=== PATIENT | female | born 1940 | race Caucasian/White ===

== ENCOUNTER 2020-09-18 09:52 | Emergency (ER) | payer MEDICARE, SELFPAY ==
--- NOTE | ~2020-09-18 | US_ITS ---
EXAMINATION: US VENOUS ULTRASOUND WITH DOPPLER LOWER EXTREMITY, BILATERAL CLINICAL INFORMATION: Bilateral leg swelling. Assess for DVT. COMPARISON: None TECHNIQUE: Ultrasound of the deep veins is performed from the hip to the calf with compression sonography and color and pulse Doppler assessment. Spectral analysis with color-flow imaging is performed. Examination on the right is completed. Patient declined completion of the exam on the left. Only part of the left leg is evaluated. FINDINGS: RIGHT: There is normal venous compression and respiratory variation and augmented flow. The visualized common femoral vein, superficial femoral vein, profunda femoral vein, popliteal vein, and the trifurcation region shows no evidence of deep venous thrombosis. No popliteal fossa cyst. LEFT: There is patency and normal Doppler in the facet regions of the left lower extremity including the common femoral vein, greater saphenous vein, and femoral vein proximally mid thigh. More distally, the femoral vein and popliteal vein are not evaluated as patient declined further ultrasound evaluation. US/US venous duplex LE IMPRESSION: 1. LEFT: Incomplete. No DVT from hip to mid thigh. More distally patient declined ultrasound evaluation. 2. RIGHT: No DVT demonstrated in the right lower extremity.
--- NOTE | ~2020-09-18 | XR_ITS ---
EXAMINATION: XR CHEST CLINICAL INFORMATION: Chest pain COMPARISON: Chest radiographs 03/24/2020, 07/31/2016 TECHNIQUE: 2 views of the chest were obtained. 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 There is no pneumothorax or pneumomediastinum. No airspace consolidation or groundglass opacity. There is tapering at the cardiac apex similar to prior study consistent with areolar tissue. The heart is normal in size. The vascularity is normal. No acute bony abnormality. XR/XR chest 2V IMPRESSION: Unremarkable examination.
[2020-09-18 10:10] VITALS: BP 136/43; PULSE 62; RESP 16; TEMP 36.7; O2SAT 98; BMI 42.5
--- NOTE | 2020-09-18 10:21 | ECG_ITS ---
Test Reason : CHEST PAIN Blood Pressure : / mmHG Vent. Rate : 062 BPM Atrial Rate : 062 BPM P-R Int : 194 ms QRS Dur : 096 ms QT Int : 408 ms P-R-T Axes : 088 -42 056 degrees QTc Int : 414 ms Normal sinus rhythm Left axis deviation Abnormal ECG When compared with ECG of 24-MAR-2020 09:22, Vent. rate has decreased BY 30 BPM Referred By: Ely Landa Electronically Signed By:SAMAN SWEENEY MD
[2020-09-18 11:03] LABS: MANUAL DIFF FLAG NO
[2020-09-18 11:06] LABS: Basophils Absolute Auto 0.1 X10*3/uL (0.0-0.2); Basophils Percent Auto 0.6 % (0-2); Eosinophils Absolute Auto 0.3 X10*3/uL (0.0-0.4); Eosinophils Percent Auto 2.4 % (0-4); Hematocrit 37.7 % (37-47); Hemoglobin 12.1 g/dl (12.0-16.0); Imm Gran Abs Auto 0.04 X10*3/uL (0.00-0.03); Imm Gran Pct Auto 0.4 % (0.0-0.4); Lymphocytes Absolute Auto 2.2 X10*3/uL (1.2-4.9); Lymphocytes Percent Auto 21.6 % (20-40); Mean Corpuscular HGB Conc 32.1 g/dl (31.0-35.0); Mean Corpuscular Hemoglobin 27.2 pg (27.0-33.0); Mean Corpuscular Volume 84.7 fL (80-98); Monocytes Absolute Auto 0.7 X10*3/uL (0.1-1.2); Monocytes Percent Auto 6.4 % (2-11); Neutrophils Percent Auto 68.6 % (45-73); Platelet Count 291 X10*3/uL (160-400); Red Blood Count 4.45 X10*6/uL (4.20-5.50); Red Cell Distribution Width 13.9 % (11.0-16.0); White Blood Count 10.3 X10*3/uL (4.8-10.8)
[2020-09-18 11:14] LABS: INTERNATIONAL NORM RATIO 1.1 (0.9-1.1); Prothrombin Time 12.8 SEC (10.8-13.0)
[2020-09-18 11:16] LABS: Partial Thromboplastin Time 33.3 SEC (24.1-38.0)
[2020-09-18 11:29] VITALS: BP 185/62; PULSE 64; RESP 16; O2SAT 99
[2020-09-18] MEDS: Aspirin 81 MG TAB.CHEW 162 MG PO (11:36)
[2020-09-18 11:40] LABS: Alanine Aminotransferase 16 U/L (0-31); Albumin Level 3.9 g/dL (3.5-5.0); Alkaline Phosphatase 71 U/L (39-117); Anion Gap 11 (12-20); Aspartate Amino Transferase 17 U/L (5-31); Bilirubin Direct 0.2 mg/dL (0.0-0.5); Bilirubin Total 0.5 mg/dL (0.0-1.0); Blood Urea Nitrogen 18 mg/dL (9-16); Calcium 9.3 mg/dL (8.4-10.2); Carbon Dioxide 29 mmol/L (22-29); Chloride 104 mmol/L (96-108); Creatinine Clr Calc Pharmacy 66.9; Estimated Glomerular Filt Rate > 60; Glucose Random 74 mg/dL (60-115); Potassium 3.9 mmol/L (3.3-5.1); Sodium 140 mmol/L (135-145); Total Protein 7.3 g/dL (6.5-8.0)
--- NOTE | 2020-09-18 11:41 | ED.CHESTPAIN ---
HPI - Chest Pain General Chief Complaint: Chest Pain Stated Complaint: CP Time Seen by Provider: 09/18/20 10:20 Source: patient and EMS Mode of arrival: EMS Limitations: no limitations History of Present Illness HPI narrative: 80-year-old female with a past medical history of coronary artery disease, hyperlipidemia, hypertension, diabetes, thyroid disease, asthma, bronchitis, sleep apnea, thyroid disease, fibromyalgia, chronic back pain, degenerative joint disease who is presenting to the ED via EMS with complaints of left-sided chest pain radiating to her left shoulder with weird sensation to her left arm that woke her up out of her sleep at 05:00 this morning. Reports that her visiting nurse gave her she believes aspirin and nitro but she is unsure which helped mildly with her chest discomfort. Reports that the chest discomfort is returning again. Denies any dizziness, headaches, changes in vision, jaw pain, nausea/vomiting, paresthesias, palpitations, dyspnea on exertion, orthopnea, shortness of breath, other symptoms complaints or concerns at this time. MD complaint: chest pain Pertinent past history: coronary artery disease Onset (ago): hour(s) (Woke her up at 05:00 this morning) Timing of current episode: constant and still present Prior episodes: Yes Onset: awoke with symptoms Pain location: left chest Pain radiation: left shoulder Severity: mild Quality: aching Relieving factors: other (Patient reports her visiting nurse was there and she gave her either aspirin or nitro glycerin and she reports mild symptomatic relief she is unsure she received both or which 1 she received ) Exacerbating factors: nothing Associated symptoms: leg swelling Treatment prior to arrival: aspirin and nitroglycerin Risk Factors Coronary artery disease risk factors: diabetes, hyperlipidemia and hypertension Thoracic aortic dissection risk factors: none Related Data Allergies Allergy/AdvReac Type Severity Reaction Status Date / Time insulin detemir Allergy Unknown BRUISES Verified 12/23/14 00:00 Iodinated Contrast Media Allergy Unknown UNKNOWN Unverified 03/27/20 15:43 [IV CONTRAST] lisinopril [From ZESTRIL] Allergy Unknown COUGH Unverified 03/27/20 15:43 metformin [METFORMIN] Allergy Unknown UNKNOWN Unverified 03/27/20 15:43 metoprolol [METOPROLOL] Allergy Unknown SEVERE Unverified 03/27/20 15:43 ANGINA oxybutynin Allergy Unknown Verified 12/23/14 00:00 Penicillins [PENICILLINS] Allergy Unknown UNKNOWN Unverified 03/27/20 15:43 solifenacin [Vesicare] Allergy Unknown Verified 12/23/14 00:00 THERMONOL Allergy Unknown ANAPHYLATIC, Unverified 03/27/20 15:43 BRUISING gluten [GLUTEN] AdvReac Intermediate STOMACH Unverified 03/27/20 15:43 UPSET bee stings Allergy Unknown anaphylaxis Uncoded 12/23/14 00:00 DYE IVP Allergy Unknown anaphylaxis Uncoded 12/23/14 00:00 GLUTEN Allergy Unknown STOMACH Uncoded 12/23/14 00:00 UPSET/DIARRHEA Review of Systems Review of Systems: Constitutional : No Weight loss, No Fever, No Chills, No Night Sweats, No Fatigue, No Malaise ENT/Mouth : No Hearing loss, No Ear Pain, No Nasal Congestion, No Sinus Pain, No Hoarseness, No sore throat, No Rhinorrhea, No Swallowing Difficulty Eyes: No Eye Pain, No Swelling, No Redness, No Foreign Body, No Discharge, No Vision Changes Cardiovascular : + Chest pain, No SOB, no Dyspnea on Exertion, No Orthopnea, No Edema, No extremity swelling, No Palpitations Respiratory : No Cough, No Sputum, No Wheezing, No Dyspnea Gastrointestinal : No Nausea, No Vomiting, No Diarrhea, No abdominal Pain, No Hematochezia, No Melena Genitourinary : No irregular bleeding, No Dysuria, No Urinary Frequency, No Hematuria, No Urinary Incontinence, No Urgency, No Flank Pain, No Urinary Flow Changes, No Hesitancy Musculoskeletal : No joint pain, No Myalgias, No Joint Swelling Skin : No Skin Lesions, No rash Neuro : No Weakness, No Numbness, No Paresthesias, No Loss of Consciousness, No Dizziness, No Headache Psych : No Anxiety/Panic, No Depression, No SI/HI/AH/VH Heme/Lymph: No Bruising, No Bleeding,No Lymphadenopathy Endocrine : No Polyuria, No Polydipsia, No Temperature Intolerance Yes all other systems are reviewed and are negative [facility] Past Medical History Attestation statement: The following information was validated with the patient. Social History Social History Alcohol intake: never Smoking Status: Never smoker Use of substances other than those prescribed or required for medical reasons: No Advance Directives: No Advance Directives Information Provided: No Physical Exam Vital Signs: Vital Signs: Last Vital Signs Temp 98.0 F 09/18/20 10:10 Pulse 64 09/18/20 11:29 Resp 16 09/18/20 11:29 BP 185/62 H 09/18/20 11:29 Pulse Ox 99 09/18/20 11:29 Body Mass Index 42.5 Vital signs have been reviewed as normal and appeared to be correct. Blood pressure hypotensive at 136/43. Heart rate normal. Respiration rate normal. Temperature normal. Oxygen saturation normal. Appearance: Alert. Oriented X3. No acute distress. Head: Normal external exam. Normocephalic. Atraumatic. Able to rotate head bilaterally. Eyes: PERRLA. EOMI. No nystagmus noted. Conjunctiva and sclera normal. Eyelids normal. Corneal reflex normal. ENT: EAC normal. TM's Normal. Hearing normal. Pharynx normal. Uvula midline. tongue midline. Moist mucous membranes. No trismus noted. No drooling noted. No muffled voice noted. No nystagmus noted. Neck: Normal inspection. Neck supple. FROM. No adenopathy. Trachea midline. Thyroid Normal. No meningeal signs. No neck mass noted. CVS: Normal heart rate and rhythm. Heart sound normal. No murmurs noted. Pulses normal throughout. Respiratory: No respiratory distress. Painless inspiration. Breath sounds normal. No wheezes/rales/rhonchi noted. Chest nontender. No accessory muscle usage noted or decreased air movement noted. Abdomen: Soft and nontender. Bowel sounds normal in all 4 quadrants. No distention noted. No organomegaly noted. No visible injury noted. Back: No CVA tenderness. Full range of motion noted. Skin: Skin warm and dry. Normal skin color. Normal skin turgor. No rashes/lesions/lacerations noted. Extremities: +2 pitting b/l lower extremity edema. With bilateral calf tenderness. Extremities exhibit normal range of motion. Extremities nontender. Able to shrug shoulders bilaterally and keep up against resistance. Neuro: Oriented X 3. No motor deficit. No sensory deficit. Reflexes normal. Moving all extremities. No focal motor deficits. Cranial nerves II-XI intact bilaterally. Facial strength normal. Normal cognition. Speech normal. Gait normal. Strength 5/5 throughout. No pronator drift. No tremor noted. No fasciculations noted. No rigidity noted. Muscle tone normal throughout. Course Course Course Narrative: 14pm - 80-year-old female with a past medical history of coronary artery disease, hyperlipidemia, hypertension, diabetes, thyroid disease, asthma, bronchitis, sleep apnea, thyroid disease, fibromyalgia, chronic back pain, degenerative joint disease who is presenting to the ED via EMS with complaints of left-sided chest pain radiating to her left shoulder with weird sensation to her left arm that woke her up out of her sleep at 05:00 this morning. Received aspirin and nitro from her visiting nurse prior to arrival with mild symptomatic relief. - on exam patient is alert and oriented x3. Mildly hypotensive at 136/43 which could be related to the Nitrol that she was given prior to arrival otherwise all other vitals are within normal limits. Not in any acute distress. No focal neuro deficits. CV RRR Lungs are clear to auscultation. Non reproducible pain to the chest. Full range of motion of the left shoulder. Patient is noted to have bilateral +2 pitting edema to the lower extremity with bilateral calf tenderness. - I gave the patient to 81 mg of aspirin and 1/2 inch of nitro and she reported that her pain was improving. - troponin 8.0 - all other labs are within normal limits including BNP. - COVID/RSV/flu negative. - chest x-ray unremarkable - EKG normal sinus rhythm with left axis deviation no acute ischemic changes with a ventricular rate of 62 similar compared to prior EKG 03/24/2020. - duplex venous ultrasound of lower extremity still pending at this time - I passed by the patient's room and explained to her the plan earlier that we would have to repeat the patient's troponin and she agreed with this then when I was passing her room again I noticed that she was sitting in a chair completely dressed and very agitated reporting that she was leaving due to she has been here since this morning and she does not believe she is having a heart attack she was sent here by her visiting nurse and she did not want to come here she wants to leave due to she wants to go eat she is very adamant I tried to redirect her and explained to her that she could be having a heart attack especially if she had improvement after the aspirin and nitro and that we should still await a 2nd troponin and await the results for the venous duplex ultrasound of lower extremities although patient is refusing. She is alert and oriented x3. No focal neuro deficits. Able to make her own decision she understands that she can , stay permanently disabled although she still wants to leave therefore at this time patient will be leaving against medical advice. I explained to the patient to return at any time and to follow up with primary care provider. She understands agrees with this plan. MDM - Chest Pain Medical Records Data Attestation: I reviewed the patient's medical records. Lab Data Attestation: I reviewed the patient's lab results. Result diagrams: 09/18/20 10:56 09/18/20 10:56 Labs: Lab Results 09/18/20 09/18/20 09/18/20 Range/Units 10:56 10:56 10:56 WBC 10.3 (4.8-10.8) X10*3/uL RBC 4.45 (4.20-5.50) X10*6/uL Hgb 12.1 (12.0-16.0) g/dl Hct 37.7 (37-47) % MCV 84.7 (80-98) fL MCH 27.2 (27.0-33.0) pg MCHC 32.1 (31.0-35.0) g/dl RDW 13.9 (11.0-16.0) % Plt Count 291 (160-400) X10*3/uL MPV 9.0 L (9.4-12.3) fL Immature Gran % (Auto) 0.4 (0.0-0.4) % Neut % (Auto) 68.6 (45-73) % Lymph % (Auto) 21.6 (20-40) % [place] % (Auto) 6.4 (2-11) % Eos % (Auto) 2.4 (0-4) % Baso % (Auto) 0.6 (0-2) % Lymph # (Auto) 2.2 (1.2-4.9) X10*3/uL [place] # (Auto) 0.7 (0.1-1.2) X10*3/uL Eos # (Auto) 0.3 (0.0-0.4) X10*3/uL Baso # (Auto) 0.1 (0.0-0.2) X10*3/uL Abs Immat Gran (auto) 0.04 H (0.00-0.03) X10*3/uL Absolute Neuts (auto) 7.0 (2.0-8.3) X10*3/uL Absolute Nucleated RBC 0.000 (0.0-0.012) X10*3/uL Nucleated RBC % (auto) 0.0 (0.0-0.2) /100WBC PT 12.8 (10.8-13.0) SEC INR 1.1 (0.9-1.1) APTT 33.3 (24.1-38.0) SEC Sodium 140 (135-145) mmol/L Potassium 3.9 (3.3-5.1) mmol/L Chloride 104 (96-108) mmol/L Carbon Dioxide 29 (22-29) mmol/L Anion Gap 11 L (12-20) BUN 18 H (9-16) mg/dL Creatinine 0.81 (0.5-1.4) mg/dL Estim Creat Clear Calc 66.9 Estimated GFR > 60 Random Glucose 74 (60-115) mg/dL Calcium 9.3 (8.4-10.2) mg/dL Magnesium 2.0 (1.6-2.6) mg/dL Total Bilirubin 0.5 (0.0-1.0) mg/dL Direct Bilirubin 0.2 (0.0-0.5) mg/dL AST 17 (5-31) U/L ALT 16 (0-31) U/L Alkaline Phosphatase 71 (39-117) U/L Troponin I High Sens (<3.5-17.0) ng/L B-Natriuretic Peptide (<100) pg/mL Total Protein 7.3 (6.5-8.0) g/dL Albumin 3.9 (3.5-5.0) g/dL Coronavirus (PCR) (Negative) Influenza Type A (PCR) (Negative) Influenza Type B (PCR) (Negative) RSV RNA Qual (PCR) (Negative) 09/18/20 09/18/20 Range/Units 10:56 10:56 WBC (4.8-10.8) X10*3/uL RBC (4.20-5.50) X10*6/uL Hgb (12.0-16.0) g/dl Hct (37-47) % MCV (80-98) fL MCH (27.0-33.0) pg MCHC (31.0-35.0) g/dl RDW (11.0-16.0) % Plt Count (160-400) X10*3/uL MPV (9.4-12.3) fL Immature Gran % (Auto) (0.0-0.4) % Neut % (Auto) (45-73) % Lymph % (Auto) (20-40) % [place] % (Auto) (2-11) % Eos % (Auto) (0-4) % Baso % (Auto) (0-2) % Lymph # (Auto) (1.2-4.9) X10*3/uL [place] # (Auto) (0.1-1.2) X10*3/uL Eos # (Auto) (0.0-0.4) X10*3/uL Baso # (Auto) (0.0-0.2) X10*3/uL Abs Immat Gran (auto) (0.00-0.03) X10*3/uL Absolute Neuts (auto) (2.0-8.3) X10*3/uL Absolute Nucleated RBC (0.0-0.012) X10*3/uL Nucleated RBC % (auto) (0.0-0.2) /100WBC PT (10.8-13.0) SEC INR (0.9-1.1) APTT (24.1-38.0) SEC Sodium (135-145) mmol/L Potassium (3.3-5.1) mmol/L Chloride (96-108) mmol/L Carbon Dioxide (22-29) mmol/L Anion Gap (12-20) BUN (9-16) mg/dL Creatinine (0.5-1.4) mg/dL Estim Creat Clear Calc Estimated GFR Random Glucose (60-115) mg/dL Calcium (8.4-10.2) mg/dL Magnesium (1.6-2.6) mg/dL Total Bilirubin (0.0-1.0) mg/dL Direct Bilirubin (0.0-0.5) mg/dL AST (5-31) U/L ALT (0-31) U/L Alkaline Phosphatase (39-117) U/L Troponin I High Sens 8.0 (<3.5-17.0) ng/L B-Natriuretic Peptide 50 (<100) pg/mL Total Protein (6.5-8.0) g/dL Albumin (3.5-5.0) g/dL Coronavirus (PCR) NEGATIVE (Negative) Influenza Type A (PCR) NEGATIVE (Negative) Influenza Type B (PCR) NEGATIVE (Negative) RSV RNA Qual (PCR) NEGATIVE (Negative) Imaging Data Chest x-ray: Attestation: I personally reviewed and interpreted this imaging study as follows: Radiologist's impression: FINDINGS: 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 There is no pneumothorax or pneumomediastinum. No airspace consolidation or groundglass opacity. There is tapering at the cardiac apex similar to prior study consistent with areolar tissue. The heart is normal in size. The vascularity is normal. No acute bony abnormality. XR/XR chest 2V IMPRESSION: Unremarkable examination. Bilateral duplex venous ultrasound lower extremity: Attestation: I personally reviewed and interpreted this imaging study as follows: Radiologist's impression: US/US venous duplex LE BI IMPRESSION: 1. LEFT: Incomplete. No DVT from hip to mid thigh. More distally patient declined ultrasound evaluation. 2. RIGHT: No DVT demonstrated in the right lower extremity. ECG Data ECG #1: Attestation: I personally reviewed and interpreted this ECG as follows: ECG interpretation date: 09/18/20 ECG interpretation time: 10:22 Interpretation: EKG normal sinus rhythm with left axis deviation no acute ischemic changes with a ventricular rate of 62 similar compared to prior EKG 03/24/2020. Scores Heart Score History: -2- highly suspicious ECG: -0- normal Age: -2- > or = 65 Risk factory: -2- 3 or more risk factors or treated atherosclerosis Troponin: -1- >1 - <3x normal limit Score: 7 Risk: 50.1% Critical Care Time Critical Care Time Critical Care Time: Yes Total Critical Care Time: 60 Attestation: I personally attest to this time spent taking care of the patient Discharge Plan Discharge Clinical Impression: Chest pain, Edema of both legs Patient Disposition: Left Against Medical Advice Instructions: Against Medical Advice (ED) Additional Instructions: I am very concerned about you leaving today against medical advice especially due to your risk factors and your complaint of chest pain radiating to her left shoulder with a weird sensation to your left arm with improvement after aspirin and nitro. I tried to convince him to stay although you are alert and oriented x3 and are able to make her own decisions and you are requesting still to leave against medical advice. I wanted to repeat a troponin which is the cardiac enzyme and I also was waiting for your venous duplex ultrasound to evaluate if you had any blood clots in your lower extremities although you still wants to leave against medical advice. Return at any time and please follow up with her primary care provider. Referrals: Physician,Unknown [Primary Care Provider] - 1 day (Your primary care provider) Interventions: ED Discharge Assessment Last Done: 09/18/20 14:13 Discharge Date/Time: 09/18/20 14:14 Print Language: Upper Sorbian
[2020-09-18 11:43] LABS: B Type Natriuretic Peptide 50 pg/mL (<100)
[2020-09-18 12:02] LABS: Influenza A PCR NEGATIVE (Negative); Influenza B PCR NEGATIVE (Negative); Resp Syncy Virus RNA Qual PCR NEGATIVE (Negative); SARS COV2 PCR INHOUSE NEGATIVE (Negative)
[2020-09-18] MEDS: Nitroglycerin 2 % Oint 1 GM Packet 0.5 INCH TRANSDERMA (12:13)
== END 2020-09-18 14:14 | disposition left against medical advice (07) ==
PROVIDERS: Physician Assistant Medical; Emergency Provider Emergency Medicine Emergency Medical Services
DX: R07.9 Chest pain, unspecified (principal); R60.0 Localized edema; M25.512 Pain in left shoulder; I25.10 Atherosclerotic heart disease of native coronary artery without angina pectoris; Z20.822 Contact with and (suspected) exposure to COVID-19; Z79.899 Other long term (current) drug therapy
CPT/HCPCS: 0241U; 36415; 71046; 80048; 80076; 83735; 83880; 84484; 85025; 85610; 85730; 93005; 93970; 99284; 99291

== ENCOUNTER 2021-02-24 16:29 | Emergency (ER) | payer MEDICARE, SELFPAY ==
--- NOTE | ~2021-02-24 | XR_ITS ---
EXAMINATION: XR HAND, RIGHT CLINICAL INFORMATION: Fall. COMPARISON: Right wrist and hand 11/30/2014 TECHNIQUE: PA, lateral, and oblique views of the right hand. FINDINGS: Again seen are degenerative changes in the hand, most prominent at the 1st metacarpal carpal joint with changes also seen at the DIP joints and radiocarpal joints. A cyst in the navicular is again noted. No acute fracture is seen. Crescentic bony density adjacent to the radial aspect at the base of the proximal phalanx of the 2nd digit does not appear acute, but correlation with point tenderness on physical exam is recommended. XR/XR hand RT 2V IMPRESSION: Degenerative changes similar to those noted previously. Small crescentic bony density adjacent to radial base of proximal phalanx index finger. Correlation with point tenderness on physical exam is recommended.
[2021-02-24 17:05] VITALS: BP 142/41; PULSE 71; RESP 18; TEMP 36.6; O2SAT 97; BMI 44.6
== END 2021-02-24 19:28 | disposition left against medical advice (07) ==
PROVIDERS: Emergency Provider Emergency Medicine; PCP Internal Medicine
DX: S69.91XA Unspecified injury of right wrist, hand and finger(s), initial encounter (principal); W19.XXXA Unspecified fall, initial encounter; Z91.81 History of falling; Y93.9 Activity, unspecified; Y92.9 Unspecified place or not applicable; Y99.9 Unspecified external cause status
CPT/HCPCS: 73120; 99281; 99283

== ENCOUNTER 2021-09-24 09:58 | Outpatient (REF) | payer MEDICARE, SELFPAY ==
--- NOTE | 2021-09-24 10:10 | ECG_ITS ---
Test Reason : ATHEROSCLEROSIS Blood Pressure : / mmHG Vent. Rate : 062 BPM Atrial Rate : 062 BPM P-R Int : 184 ms QRS Dur : 098 ms QT Int : 412 ms P-R-T Axes : 085 -51 052 degrees QTc Int : 418 ms Normal sinus rhythm Left anterior fascicular block Minimal voltage criteria for LVH, may be normal variant ( [place] product ) Abnormal ECG When compared with ECG of 18-SEP-2020 10:22, No significant change was found Referred By: Adolfo West Electronically Signed By:WASHINGTON LYNN
[2021-09-24 10:23] LABS: MANUAL DIFF FLAG NO
[2021-09-24 10:59] LABS: Basophils Absolute Auto 0.1 X10*3/uL (0.0-0.2); Basophils Percent Auto 0.6 % (0-2); Eosinophils Absolute Auto 0.3 X10*3/uL (0.0-0.4); Eosinophils Percent Auto 3.1 % (0-4); Hematocrit 39.9 % (37.0-47.0); Hemoglobin 12.9 g/dl (12.0-16.0); Imm Gran Abs Auto 0.05 X10*3/uL (0.00-0.03); Imm Gran Pct Auto 0.6 % (0.0-0.4); Lymphocytes Absolute Auto 2.1 X10*3/uL (1.2-4.9); Lymphocytes Percent Auto 26.3 % (20-40); Mean Corpuscular HGB Conc 32.3 g/dl (31.0-35.0); Mean Corpuscular Hemoglobin 27.6 pg (27.0-33.0); Mean Corpuscular Volume 85.4 fL (80.0-98.0); Mean Platelet Volume 9.6 fL (9.4-12.3); Monocytes Absolute Auto 0.6 X10*3/uL (0.1-1.2); Monocytes Percent Auto 7.3 % (2-11); Neutrophils Percent Auto 62.1 % (45-73); Platelet Count 302 X10*3/uL (160-400); Red Blood Count 4.67 X10*6/uL (4.20-5.50); White Blood Count 8.1 X10*3/uL (4.8-10.8)
[2021-09-24 11:21] LABS: Estimated Average Glucose 280 mg/dL; Hemoglobin A1c % 11.4 %
[2021-09-24 11:24] LABS: Alanine Aminotransferase 18 U/L (0-31); Albumin Level 3.7 g/dL (3.5-5.0); Alkaline Phosphatase 72 U/L (39-117); Anion Gap 13 (12-20); Aspartate Amino Transferase 14 U/L (5-31); Bilirubin Total 0.5 mg/dL (0.0-1.0); Blood Urea Nitrogen 17 mg/dL (9-16); Calcium 9.1 mg/dL (8.4-10.2); Carbon Dioxide 25 mmol/L (22-29); Chloride 103 mmol/L (96-108); Cholesterol 237 mg/dL; Estimated Glomerular Filt Rate 56; Glucose Fasting 269 mg/dL (60-99); HDL Cholesterol 38 mg/dL; LDL Cholesterol Calculated 160 mg/dl; Potassium 4.6 mmol/L (3.3-5.1); Sodium 136 mmol/L (135-145); Total Protein 7.1 g/dL (6.5-8.0); Triglycerides 195 mg/dL
[2021-09-24 11:28] LABS: B Type Natriuretic Peptide 34 pg/mL (<100)
[2021-09-24 11:36] LABS: TSH reflex Free T4 3.61 uIU/mL (0.32-4.0)
== END 2021-09-24 09:59 | disposition home or self-care (01) ==
LOC: HO.LAB 09:58
PROVIDERS: PCP Nurse Practitioner Family; Visit Provider Nurse Practitioner Family
DX: I25.10 Atherosclerotic heart disease of native coronary artery without angina pectoris (principal); I10 Essential (primary) hypertension; E03.9 Hypothyroidism, unspecified; E11.9 Type 2 diabetes mellitus without complications; E78.5 Hyperlipidemia, unspecified; E78.00 Pure hypercholesterolemia, unspecified
CPT/HCPCS: 36415; 80053; 80061; 83036; 83880; 84443; 85025; 93005

== ENCOUNTER 2021-12-15 15:57 | Emergency (ER) | payer MEDICARE, SELFPAY ==
--- NOTE | ~2021-12-15 | XR_ITS ---
EXAMINATION: XR ELBOW, LEFT XR SHOULDER, LEFT XR RIBS, LEFT XR CHEST XR KNEE, BILATERAL CLINICAL INFORMATION: Fall down 5 concrete steps, pain. COMPARISON: Chest radiograph 03/24/2020. TECHNIQUE: 3 views of the left elbow. 3 views of the left shoulder. AP view of the chest. 3 views of the left ribs. 4 views of the left knee. 4 views of the right knee. FINDINGS: LEFT ELBOW: The elbow joint appears intact. A small ossific density in the olecranon seen on one image may represent bony spurring versus a small avulsion fracture. Mild degenerative changes in the elbow. LEFT SHOULDER: No displaced fracture, the acromioclavicular joint and glenohumeral joints are intact. There are ayyafhme-io-twsgwu degenerative changes in the glenohumeral joint. CHEST: Low lung volumes. Cardiomediastinal silhouette is within normal limits. No consolidation, pleural effusion or pneumothorax. No displaced rib fractures visualized. LEFT KNEE: No displaced fracture. Moderate degenerative changes within the knee with bony spurring. Possible small joint effusion. Vascular calcifications. RIGHT KNEE: No fracture or dislocation. Tricompartmental moderate degenerative change with marginal osteophyte formation and bony spurring. Suspected moderate right-sided joint effusion. XR/XR knee LT 3V IMPRESSION: LEFT ELBOW: A small ossific density overlying the olecranon may represent bony spurring versus small avulsion fracture, correlate with clinical exam. CHEST: No acute cardiopulmonary process. No displaced rib fractures. LEFT SHOULDER: Jhzxhewp-vs-aezwzv degenerative change in the left shoulder. BILATERAL KNEES: Moderate degenerative change in the knees, suspect moderate right-sided joint effusion and small left-sided joint effusion.
--- NOTE | ~2021-12-15 | XR_ITS ---
EXAMINATION: XR ELBOW, LEFT XR SHOULDER, LEFT XR RIBS, LEFT XR CHEST XR KNEE, BILATERAL CLINICAL INFORMATION: Fall down 5 concrete steps, pain. COMPARISON: Chest radiograph 03/24/2020. TECHNIQUE: 3 views of the left elbow. 3 views of the left shoulder. AP view of the chest. 3 views of the left ribs. 4 views of the left knee. 4 views of the right knee. FINDINGS: LEFT ELBOW: The elbow joint appears intact. A small ossific density in the olecranon seen on one image may represent bony spurring versus a small avulsion fracture. Mild degenerative changes in the elbow. LEFT SHOULDER: No displaced fracture, the acromioclavicular joint and glenohumeral joints are intact. There are kslgudeu-yd-mczijy degenerative changes in the glenohumeral joint. CHEST: Low lung volumes. Cardiomediastinal silhouette is within normal limits. No consolidation, pleural effusion or pneumothorax. No displaced rib fractures visualized. LEFT KNEE: No displaced fracture. Moderate degenerative changes within the knee with bony spurring. Possible small joint effusion. Vascular calcifications. RIGHT KNEE: No fracture or dislocation. Tricompartmental moderate degenerative change with marginal osteophyte formation and bony spurring. Suspected moderate right-sided joint effusion. XR/XR ribs LT min 3V w CXR1V IMPRESSION: LEFT ELBOW: A small ossific density overlying the olecranon may represent bony spurring versus small avulsion fracture, correlate with clinical exam. CHEST: No acute cardiopulmonary process. No displaced rib fractures. LEFT SHOULDER: Bhisvnew-wq-ziidfh degenerative change in the left shoulder. BILATERAL KNEES: Moderate degenerative change in the knees, suspect moderate right-sided joint effusion and small left-sided joint effusion.
--- NOTE | ~2021-12-15 | XR_ITS ---
EXAMINATION: XR ELBOW, LEFT XR SHOULDER, LEFT XR RIBS, LEFT XR CHEST XR KNEE, BILATERAL CLINICAL INFORMATION: Fall down 5 concrete steps, pain. COMPARISON: Chest radiograph 03/24/2020. TECHNIQUE: 3 views of the left elbow. 3 views of the left shoulder. AP view of the chest. 3 views of the left ribs. 4 views of the left knee. 4 views of the right knee. FINDINGS: LEFT ELBOW: The elbow joint appears intact. A small ossific density in the olecranon seen on one image may represent bony spurring versus a small avulsion fracture. Mild degenerative changes in the elbow. LEFT SHOULDER: No displaced fracture, the acromioclavicular joint and glenohumeral joints are intact. There are vduvbgne-xd-tzhqsf degenerative changes in the glenohumeral joint. CHEST: Low lung volumes. Cardiomediastinal silhouette is within normal limits. No consolidation, pleural effusion or pneumothorax. No displaced rib fractures visualized. LEFT KNEE: No displaced fracture. Moderate degenerative changes within the knee with bony spurring. Possible small joint effusion. Vascular calcifications. RIGHT KNEE: No fracture or dislocation. Tricompartmental moderate degenerative change with marginal osteophyte formation and bony spurring. Suspected moderate right-sided joint effusion. XR/XR knee RT 3V IMPRESSION: LEFT ELBOW: A small ossific density overlying the olecranon may represent bony spurring versus small avulsion fracture, correlate with clinical exam. CHEST: No acute cardiopulmonary process. No displaced rib fractures. LEFT SHOULDER: Iaxljaoy-xl-axhjzr degenerative change in the left shoulder. BILATERAL KNEES: Moderate degenerative change in the knees, suspect moderate right-sided joint effusion and small left-sided joint effusion.
--- NOTE | ~2021-12-15 | CT_ITS ---
EXAMINATION: CT HEAD WITHOUT CONTRAST CT CERVICAL SPINE WITHOUT CONTRAST CLINICAL INFORMATION: Head trauma. COMPARISON: None TECHNIQUE: CT of the head and cervical spine were performed without intravenous contrast. Multiplanar reformats were rendered and reviewed. This CT examination was performed using dose optimization techniques as appropriate, variously including the following: *Automated exposure control *Adjustment of mA and/or kV according to patient size (this includes techniques or standardized protocols for targeted exams where dose is matched to indication/reason for exam; i.e. extremities or head) *Use of iterative reconstruction technique DLP: 1609 mGy-cm. FINDINGS: CT head: There is no intracranial hemorrhage, extra-axial collection, mass effect, or territorial infarction. Patchy hypoattenuation is seen within the cerebral white matter, most typical of chronic microangiopathy. The ventricles and sulci are commensurate reflecting mild degree of diffuse brain parenchymal volume loss. The calvarium is intact. The extracranial structures are within normal limits. CT cervical spine: The cervical vertebral bodies maintain normal heights. There is degenerative appearing anterolisthesis of C3 on C4. No traumatic listhesis is seen. There is no evidence of fracture. The craniovertebral junction is intact. The facet joints are normally aligned. There is multilevel degenerative spondylosis related to significant intervertebral disc height loss, disc osteophyte complexes, facet arthropathy, and uncovertebral hypertrophy. There is no high-grade narrowing the spinal canal. Multilevel neural foraminal stenosis is demonstrated. The upper lungs are grossly clear. The cervical soft tissues are within normal limits for patient's age. CT/CT cervical spine wo con IMPRESSION: CT head: - No acute intracranial abnormality CT cervical spine: - No cervical spine fracture or traumatic malalignment. Multilevel degenerative spondylosis.
--- NOTE | ~2021-12-15 | XR_ITS ---
EXAMINATION: XR ELBOW, LEFT XR SHOULDER, LEFT XR RIBS, LEFT XR CHEST XR KNEE, BILATERAL CLINICAL INFORMATION: Fall down 5 concrete steps, pain. COMPARISON: Chest radiograph 03/24/2020. TECHNIQUE: 3 views of the left elbow. 3 views of the left shoulder. AP view of the chest. 3 views of the left ribs. 4 views of the left knee. 4 views of the right knee. FINDINGS: LEFT ELBOW: The elbow joint appears intact. A small ossific density in the olecranon seen on one image may represent bony spurring versus a small avulsion fracture. Mild degenerative changes in the elbow. LEFT SHOULDER: No displaced fracture, the acromioclavicular joint and glenohumeral joints are intact. There are vwkycdjc-qs-bxeevl degenerative changes in the glenohumeral joint. CHEST: Low lung volumes. Cardiomediastinal silhouette is within normal limits. No consolidation, pleural effusion or pneumothorax. No displaced rib fractures visualized. LEFT KNEE: No displaced fracture. Moderate degenerative changes within the knee with bony spurring. Possible small joint effusion. Vascular calcifications. RIGHT KNEE: No fracture or dislocation. Tricompartmental moderate degenerative change with marginal osteophyte formation and bony spurring. Suspected moderate right-sided joint effusion. XR/XR elbow LT min 3V IMPRESSION: LEFT ELBOW: A small ossific density overlying the olecranon may represent bony spurring versus small avulsion fracture, correlate with clinical exam. CHEST: No acute cardiopulmonary process. No displaced rib fractures. LEFT SHOULDER: Yeolwyay-ha-jaxntd degenerative change in the left shoulder. BILATERAL KNEES: Moderate degenerative change in the knees, suspect moderate right-sided joint effusion and small left-sided joint effusion.
--- NOTE | ~2021-12-15 | XR_ITS ---
EXAMINATION: XR ELBOW, LEFT XR SHOULDER, LEFT XR RIBS, LEFT XR CHEST XR KNEE, BILATERAL CLINICAL INFORMATION: Fall down 5 concrete steps, pain. COMPARISON: Chest radiograph 03/24/2020. TECHNIQUE: 3 views of the left elbow. 3 views of the left shoulder. AP view of the chest. 3 views of the left ribs. 4 views of the left knee. 4 views of the right knee. FINDINGS: LEFT ELBOW: The elbow joint appears intact. A small ossific density in the olecranon seen on one image may represent bony spurring versus a small avulsion fracture. Mild degenerative changes in the elbow. LEFT SHOULDER: No displaced fracture, the acromioclavicular joint and glenohumeral joints are intact. There are sliqkrlp-ot-beexyv degenerative changes in the glenohumeral joint. CHEST: Low lung volumes. Cardiomediastinal silhouette is within normal limits. No consolidation, pleural effusion or pneumothorax. No displaced rib fractures visualized. LEFT KNEE: No displaced fracture. Moderate degenerative changes within the knee with bony spurring. Possible small joint effusion. Vascular calcifications. RIGHT KNEE: No fracture or dislocation. Tricompartmental moderate degenerative change with marginal osteophyte formation and bony spurring. Suspected moderate right-sided joint effusion. XR/XR shoulder LT min 2V IMPRESSION: LEFT ELBOW: A small ossific density overlying the olecranon may represent bony spurring versus small avulsion fracture, correlate with clinical exam. CHEST: No acute cardiopulmonary process. No displaced rib fractures. LEFT SHOULDER: Gtpxtxsb-yi-fhvhpg degenerative change in the left shoulder. BILATERAL KNEES: Moderate degenerative change in the knees, suspect moderate right-sided joint effusion and small left-sided joint effusion.
[2021-12-15 16:03] VITALS: BP 140/78; BP 195/89; PULSE 75; PULSE 83; RESP 16; TEMP 36.9; O2SAT 96; O2SAT 97; BMI 47.2
--- NOTE | 2021-12-15 16:30 | ED.FALL ---
HPI - Fall General Chief Complaint: Fall <RUBY Villela Last Filed: 12/15/21 17:46> Stated Complaint: fall <RUBY Villela Last Filed: 12/15/21 17:46> Time Seen by Provider: 12/15/21 16:08 <RUBY Villela Last Filed: 12/15/21 17:46> Source: patient <RUBY Villela Last Filed: 12/15/21 17:46> Mode of arrival: ambulatory <RUBY Villela Last Filed: 12/15/21 17:46> History of Present Illness HPI Narrative: 81-year-old female with a past medical history of hypothyroid, diabetes, HTN, CAD, fibromyalgia, HLD, sleep apnea, asthma, presenting to the ED complaining of headache, neck pain, left shoulder/upper back and bilateral knee pain s/p mechanical slip and 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 States was walking up the stairs reached for handle and fell backwards, admits to hitting head, denies LOC. Admits intermittently takes ASA. Has not been ambulatory since incident. Denies symptoms prior to fall. Denies vision change/loss, nausea, vomiting, CP/SOB, abdominal pain <RUBY Villela Last Filed: 12/15/21 17:46> MD complaint: fall <RUBY Villela Last Filed: 12/15/21 17:46> Related Data Home Medications: Previous Rx's Medication Instructions Recorded blood-glucose meter (FreeStyle #1 ea 09/29/21 Lite Meter) atorvastatin 10 mg tablet 10 mg PO DAILY #90 tab 11/23/21 blood sugar diagnostic (FreeStyle #100 ea 11/23/21 Lite Strips) isosorbide mononitrate 60 mg 60 mg PO DAILY #90 tab 11/23/21 tablet,extended release 24 hr lancets 28 gauge (FreeStyle #100 ea 11/23/21 Lancets) levothyroxine 75 mcg tablet 75 mcg PO DAILY #90 tab 11/23/21 losartan 50 mg tablet 50 mg PO DAILY #90 tab 11/23/21 metformin 500 mg tablet,extended 1,000 mg PO BID #120 tab 11/23/21 release 24 hr nitroglycerin 0.4 mg sublingual 0.4 mg SUBLINGUAL Q5M #30 tab 11/23/21 tablet <RUBY Villela Last Filed: 12/15/21 17:46> Allergies/Adverse Reactions: Allergies Allergy/AdvReac Type Severity Reaction Status Date / Time insulin detemir Allergy Unknown BRUISES Verified 11/23/21 10:23 Iodinated Contrast Media Allergy Unknown UNKNOWN Verified 11/23/21 10:23 [IV CONTRAST] lisinopril [From ZESTRIL] Allergy Unknown COUGH Verified 11/23/21 10:23 metformin [METFORMIN] Allergy Unknown UNKNOWN Verified 11/23/21 10:23 metoprolol [METOPROLOL] Allergy Unknown SEVERE Verified 11/23/21 10:23 ANGINA oxybutynin Allergy Unknown Unknown Verified 11/23/21 10:23 Penicillins [PENICILLINS] Allergy Unknown UNKNOWN Verified 11/23/21 10:23 solifenacin [Vesicare] Allergy Unknown Unknown Verified 11/23/21 10:23 THERMONOL Allergy Unknown ANAPHYLATIC, Verified 11/23/21 10:23 BRUISING gluten [GLUTEN] AdvReac Intermediate STOMACH Verified 11/23/21 10:23 UPSET bee stings Allergy Unknown anaphylaxis Uncoded 10/26/21 08:37 DYE IVP Allergy Unknown anaphylaxis Uncoded 10/26/21 08:37 <RUBY Villela Last Filed: 12/15/21 17:46> Review of Systems Review of Systems: Constitutional: No Fever, No Chills, No Fatigue, No Malaise ENT/Mouth: No Ear Pain, No Nasal Congestion, No sore throat, No Rhinorrhea, No Swallowing Difficulty Eyes: No Eye Pain, No Swelling, No Redness, No Vision Changes Cardiovascular: No Chest Pain, No SOB, No Edema, No Palpitations Respiratory: No Cough, No Sputum, No Dyspnea Gastrointestinal: No Nausea, No Vomiting, No Diarrhea, No Constipation, No Abdominal pain Genitourinary:No Dysuria, No Urinary Frequency, No Hematuria, No Urinary Incontinence/retention, No Flank Pain Musculoskeletal: + joint pain, No Myalgias, No Joint Swelling Skin: No Skin Lesions, No rash Neuro: No Weakness, No Numbness, No Paresthesias, No Loss of Consciousness, No Dizziness, + Headache <RUBY Villela Last Filed: 12/15/21 17:46> Yes all other systems are reviewed and are negative <RUBY Villela - Last Filed: 12/15/21 17:46> Neurologic: Denies Abnormal speech present <RUBY Villela - Last Filed: 12/15/21 17:46> [facility] Past Medical History Attestation statement: The following information was validated with the patient. <RUBY Villela - Last Filed: 12/15/21 17:46> Surgical History: Surgical History History of cholecystectomy History of left hip replacement History of thyroidectomy History of tooth extraction <RUBY Villela - Last Filed: 12/15/21 17:46> Social History Social History: Social History Housing: House Alcohol intake: never Patient Tobacco Use Status: Former Tobacco user e-Cigarette/Vaping Use: Never Used Second Hand Smoke Exposure: No Advance Directives: No Advance Directives Information Provided: No service: No Current occupational status: retired Cognitive needs: Yes (cane) Hearing needs: No Vision needs: Yes (glasses) <RUBY Villela - Last Filed: 12/15/21 17:46> Physical Exam Vital Signs: Vital Signs: Last Vital Signs Temp 98.4 F 12/15/21 16:03 Pulse 75 12/15/21 16:03 Resp 16 12/15/21 16:03 BP 195/89 H 12/15/21 16:03 Pulse Ox 97 12/15/21 16:03 BMI result Body Mass Index 47.2 <RUBY Villela - Last Filed: 12/15/21 17:46> Vital Signs: Last Vital Signs Temp 98.4 F 12/15/21 16:03 Pulse 75 12/15/21 16:03 Resp 16 12/15/21 16:03 BP 195/89 H 12/15/21 16:03 Pulse Ox 97 12/15/21 16:03 BMI result Body Mass Index 47.2 <RUBY Gramajo - Last Filed: 12/15/21 20:32> Const: General: cooperative, healthy appearing, no acute distress, alert and awake <RUBY Villela - Last Filed: 12/15/21 17:46> Orientation/consciousness: patient oriented x3 <RUBY Villela - Last Filed: 12/15/21 17:46> Limitations: no limitations <Kera Rangel PA - Last Filed: 12/15/21 17:46> HEENT: Head: Yes normal to inspection, Yes atraumatic, No Weinstein's sign and No raccoon eyes <RUBY Villela - Last Filed: 12/15/21 17:46> Ears: hearing grossly normal bilaterally <Kera Rangel PA - Last Filed: 12/15/21 17:46> General nose exam: Normal external nose present <RUBY Villela - Last Filed: 12/15/21 17:46> Face and sinus: Yes normal facial exam <RUBY Villela - Last Filed: 12/15/21 17:46> Mouth: Normal oral and palatal mucosa present <RUBY Villela - Last Filed: 12/15/21 17:46> Throat: Yes posterior oropharynx normal, Yes tonsils normal and Yes uvula midline <eKra Rangel PA - Last Filed: 12/15/21 17:46> Eyes: General: appearance normal, both eyes and all related structures <Kera Rangel PA - Last Filed: 12/15/21 17:46> Pupils: Equal, round and reactive pupils present <RUBY Villela - Last Filed: 12/15/21 17:46> EOM: EOMs intact bilaterally <RUBY Villela - Last Filed: 12/15/21 17:46> Neck: Other: C-collar in place. No midline cervical spinous tenderness <RUBY Villela - Last Filed: 12/15/21 17:46> Neck: Yes normal visual inspection and Yes no meningeal signs <RUBY Villela - Last Filed: 12/15/21 17:46> Chest: Chest palpation & inspection: normal inspection of the chest, no crepitus and no tenderness <RUBY Villela - Last Filed: 12/15/21 17:46> Resp: Effort & Inspection: normal respiratory effort and no respiratory distress <Kera Poulserafint PA - Last Filed: 12/15/21 17:46> Auscultation: clear to auscultation bilaterally <Kera Poulserafint PA - Last Filed: 12/15/21 17:46> Cardio: Rate: regular rate <Kera Poulserafint PA - Last Filed: 12/15/21 17:46> Heart sounds: S1 normal heart sound present and S2 normal heart sound present <Kera Poulserafint PA - Last Filed: 12/15/21 17:46> Peripheral pulses: radial pulses present and dorsalis pedis present <Kera Poulserafint, PA - Last Filed: 12/15/21 17:46> GI: Inspection: Yes normal to inspection <Kera Poulserafint PA - Last Filed: 12/15/21 17:46> Palpation (GI): Soft to palpation, nontender, no guarding and not rigid <Kera Poulemmett PA - Last Filed: 12/15/21 17:46> : General: Yes no CVA tenderness <Kera Poulserafint, PA - Last Filed: 12/15/21 17:46> Back/Spine/Pelvis: Other: No midline thoracic/lumbar spinous tenderness/step-off or deformity <Kera Poulserafint PA - Last Filed: 12/15/21 17:46> Back: no CVA tenderness <Kera Poulserafint, PA - Last Filed: 12/15/21 17:46> Skin: Other: + abrasion to left shoulder, left scapular region, and bilateral knees <Kera Poulserafint PA - Last Filed: 12/15/21 17:46> Rashes: no rashes <Kera Poulserafint, PA - Last Filed: 12/15/21 17:46> Neuro: General: patient oriented x3, tone normal, moves all extremities, no meningeal signs, no focal motor deficits and CN's II-XI intact bilaterally <Kera Poulserafint, PA - Last Filed: 12/15/21 17:46> Cranial nerves: Yes CN's II-XII intact bilaterally, Yes Equal, round and reactive pupils present and Yes Bilaterally intact EOM present <Kera Poulserafint PA - Last Filed: 12/15/21 17:46> Cognition (Neuro): normal cognition <RUBY Villela Last Filed: 12/15/21 17:46> Speech: No Abnormal speech present <RUBY Villela Last Filed: 12/15/21 17:46> Motor exam (neuro): 5/5 motor strength present throughout <RUBY Villela Last Filed: 12/15/21 17:46> Extrem: Other: Left shoulder with noted tenderness extending to left trapezius muscle. Decreased ROM secondary to pain. Bilateral knees tender to palpation with decreased flexion secondary to pain. Neurovascular intact distally. Pelvis stable. <RUBY Villela Last Filed: 12/15/21 17:46> Course Course Course Narrative: CT head/brain wo con/CT cervical spine wo con IMPRESSION: CT head: - No acute intracranial abnormality ? CT cervical spine: - No cervical spine fracture or traumatic malalignment. Multilevel degenerative spondylosis. -1700--ED care transferred to [facility] pending imaging results and anticipated discharge <RUBY Villela Last Filed: 12/15/21 17:46> Reevaluation(s) Reevaluation #1: Patient imaged came back normal except left elbow xray shows avulsion fracture. Patient placed in posterior splint of left upper extremity. Patient informed to follow up [facility]. 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 On exam hypertensive likely from pain, no midline spinous tenderness throughout, no focal neuro deficits, physical exam as above. Concern for fractures vs MSK pain/strain. Rule out ICH Plan: Head/C-spine CT, x-rays <RUBY Villela Last Filed: 12/15/21 17:46> Differential Diagnosis Differential diagnosis: Likely fracture and concussion without loss of consciousness <RUBY Villela Last Filed: 12/15/21 17:46> Medical Records Attestation: I reviewed the patient's medical records. <RUBY Villela Last Filed: 12/15/21 17:46> Lab Data Attestation: I reviewed the patient's lab results. <RUBY Villela Last Filed: 12/15/21 17:46> Discharge Plan Discharge Clinical Impression: Head injury, Fall, Bilateral knee pain, Left shoulder pain, Multiple abrasions, Elbow fracture, left <RUBY Villela Last Filed: 12/15/21 17:46> Patient Disposition: Home, Self-Care <RUBY Villela Last Filed: 12/15/21 17:46> Instructions: Elbow Fracture (ED), Head Injury (ED), Arthralgia (ED), Fall Prevention (ED) <RUBY Villela Last Filed: 12/15/21 17:46> Additional Instructions: Ice painful areas. Rest. Take Tylenol and Motrin Return to any emergency department or urgent care or call 911 if symptoms persist or worsen <RUBY Villela Last Filed: 12/15/21 17:46> Prescriptions: No Action (DME) blood-glucose meter [FreeStyle Lite Meter] Kit See Rx Instructions .Route Qty: 1 0RF Rx Instructions: Test once daily atorvastatin 10 mg tablet 10 mg PO DAILY Qty: 90 0RF isosorbide mononitrate 60 mg tablet extended release 24 hr 60 mg PO DAILY Qty: 90 0RF levothyroxine 75 mcg tablet 75 mcg PO DAILY Qty: 90 0RF losartan 50 mg tablet 50 mg PO DAILY Qty: 90 0RF metformin 500 mg tablet extended release 24 hr 1,000 mg PO BID Qty: 120 1RF nitroglycerin 0.4 mg tablet, sublingual 0.4 mg sublingual Q5M Qty: 30 0RF Rx Instructions: do not exceed 3 doses per episode (DME) FreeStyle Lite Strips Strip See Rx Instructions .Route Qty: 100 0RF Rx Instructions: Test once daily (DME) lancets [FreeStyle Lancets] 28 gauge misc See Rx Instructions .Route Qty: 100 0RF Rx Instructions: Test once daily <RUBY Villela - Last Filed: 12/15/21 17:46> Referrals: Anmol Tolentino MD [Physician] - (Left elbow fracture) Physician,Unknown J [Primary Care Provider] - <RUBY Villela - Last Filed: 12/15/21 17:46> Print Language: Slovak <RUBY Villela - Last Filed: 12/15/21 17:46>
--- NOTE | 2021-12-15 17:11 | PC.NURSE ---
Pt comes in s/p mechanical fall, states she was going to open the door to her building and fell backwards down 5 concrete steps, denies LOC but states she wasn't able to stand up on her own. Pt uses cane at baseline. Pt is A&Ox3, pain to scalp with small abrasion, abrasion to L shoulder, L elbow and bilateral knees. no bleeding at this time. Awaiting CT scan, c collar in place by EMS. Will continue to monitor.
== END 2021-12-15 20:49 | disposition home or self-care (01) ==
PROVIDERS: Emergency Provider Emergency Medicine
DX: S09.90XA Unspecified injury of head, initial encounter (principal); S42.402A Unspecified fracture of lower end of left humerus, initial encounter for closed fracture; S40.212A Abrasion of left shoulder, initial encounter; S80.212A Abrasion, left knee, initial encounter; S80.211A Abrasion, right knee, initial encounter; W10.8XXA Fall (on) (from) other stairs and steps, initial encounter; M25.562 Pain in left knee; M25.561 Pain in right knee; M25.512 Pain in left shoulder; Y93.89 Activity, other specified; Y92.018 Other place in single-family (private) house as the place of occurrence of the external cause; Y99.9 Unspecified external cause status
CPT/HCPCS: 29105; 70450; 71101; 72125; 73030; 73080; 73562; 99284

== ENCOUNTER 2022-01-19 11:17 | Emergency (ER) | payer MEDICARE, SELFPAY ==
--- NOTE | ~2022-01-19 | XR_ITS ---
EXAMINATION: XR CHEST CLINICAL INFORMATION: Chest pain COMPARISON: Previous chest x-ray most recent December 2021 TECHNIQUE: Frontal view of the chest was obtained. FINDINGS: The cardiac and mediastinal contours are stable. The lungs are clear. There is no pleural effusion or pneumothorax. There are degenerative changes of the spine. XR/XR chest 1V IMPRESSION: No evidence for acute disease in the chest.
[2022-01-19 11:32] VITALS: BP 118/72; BP 139/56; PULSE 61; PULSE 68; RESP 16; TEMP 36.5; O2SAT 97; O2SAT 98; BMI 34.3
--- NOTE | 2022-01-19 11:41 | ECG_ITS ---
Test Reason : chest pain Blood Pressure : / mmHG Vent. Rate : 059 BPM Atrial Rate : 059 BPM P-R Int : 194 ms QRS Dur : 098 ms QT Int : 436 ms P-R-T Axes : 060 -53 033 degrees QTc Int : 431 ms Sinus bradycardia Left anterior fascicular block Cannot rule out Inferior infarct (masked by fascicular block?) , age undetermined Abnormal ECG When compared to the previous EKG of No significant changes seen Referred By: Denisse Rousseau Electronically Signed By:SAMAN SWEENEY MD
--- NOTE | 2022-01-19 11:42 | ED.CHESTPAIN ---
HPI - Chest Pain General Chief Complaint: Chest Pain Stated Complaint: CP,DIZZY,TOOK HOME NITRO X'S 3 PER EMS Time Seen by Provider: 01/19/22 11:33 Source: patient and EMS Mode of arrival: EMS Limitations: no limitations History of Present Illness HPI narrative: Patient comes to the emergency room complaining of intermittent chest pain. Patient states that the pain is not severe, she would not have come to the emergency room but her friends made her come. Patient states that for several years she has had intermittent chest pains that usually self resolves. Today, patient started having chest pain approximately 2 hours ago, 1/2 hour prior to arrival patient took 3 sublingual nitroglycerines. At this time, patient states that she has no symptoms, feels completely back to baseline. Denies chest pain / shortness of breath, no lower extremity edema or pain. Related Data Previous Rx's Medication Instructions Recorded blood-glucose meter (FreeStyle #1 ea 09/29/21 Lite Meter) atorvastatin 10 mg tablet 10 mg PO DAILY #90 tabs 11/23/21 blood sugar diagnostic (FreeStyle #100 ea 11/23/21 Lite Strips) isosorbide mononitrate 60 mg 60 mg PO DAILY #90 tabs 11/23/21 tablet,extended release 24 hr lancets 28 gauge (FreeStyle #100 ea 11/23/21 Lancets) losartan 50 mg tablet 50 mg PO DAILY #90 tabs 11/23/21 nitroglycerin 0.4 mg sublingual 0.4 mg sublingual Q5M #30 tabs 11/23/21 tablet levothyroxine 75 mcg tablet 75 mcg PO DAILY #90 tabs 12/24/21 metformin 500 mg tablet,extended 1,000 mg PO BID #120 tabs 01/05/22 release 24 hr Allergies Allergy/AdvReac Type Severity Reaction Status Date / Time insulin detemir Allergy Unknown BRUISES Verified 01/19/22 11:38 Iodinated Contrast Media Allergy Unknown UNKNOWN Verified 01/19/22 11:38 [IV CONTRAST] lisinopril [From ZESTRIL] Allergy Unknown COUGH Verified 01/19/22 11:38 metformin [METFORMIN] Allergy Unknown UNKNOWN Verified 01/19/22 11:38 metoprolol [METOPROLOL] Allergy Unknown SEVERE Verified 01/19/22 11:38 ANGINA oxybutynin Allergy Unknown Unknown Verified 01/19/22 11:38 Penicillins [PENICILLINS] Allergy Unknown UNKNOWN Verified 01/19/22 11:38 solifenacin [Vesicare] Allergy Unknown Unknown Verified 01/19/22 11:38 THERMONOL Allergy Unknown ANAPHYLATIC, Verified 01/19/22 11:38 BRUISING gluten [GLUTEN] AdvReac Intermediate STOMACH Verified 01/19/22 11:38 UPSET bee stings Allergy Unknown anaphylaxis Uncoded 01/19/22 11:38 DYE IVP Allergy Unknown anaphylaxis Uncoded 01/19/22 11:38 Review of Systems Review of Systems: Constitutional : No Weight loss, No Fever, No Chills, No Night Sweats, No Fatigue, No Malaise ENT/Mouth : No Hearing loss, No Ear Pain, No Nasal Congestion, No Sinus Pain, No Hoarseness, No sore throat, No Rhinorrhea, No Swallowing Difficulty Eyes: No Eye Pain, No Swelling, No Redness, No Foreign Body, No Discharge, No Vision Changes Cardiovascular : Chest pain that resolved after 3 doses of sublingual nitroglycerin, No SOB, No Dyspnea on Exertion, No Orthopnea, No Edema, No Palpitations Respiratory : No Cough, No Sputum, No Wheezing, No Smoke Exposure, No Dyspnea Gastrointestinal : No Nausea, No Vomiting, No Diarrhea, No Constipation, No abdominal Pain, No Hematochezia, No Melena Genitourinary : no irregular bleeding, No Dysuria, No Urinary Frequency, No Hematuria, No Urinary Incontinence, No Urgency, No Flank Pain, No Urinary Flow Changes, No Hesitancy Musculoskeletal : No joint pain, No Myalgias, No Joint Swelling Skin : No Skin Lesions, No rash Neuro : No Weakness, No Numbness, No Paresthesias, No Loss of Consciousness, No Dizziness, No Headache Psych : No Anxiety/Panic, No Depression, No SI/HI/AH/VH, No Social Issues, Heme/Lymph: No Bruising, No Bleeding,No Lymphadenopathy Endocrine : No Polyuria, No Polydipsia, No Temperature Intolerance [facility] Past Medical History Surgical History History of cholecystectomy History of left hip replacement History of thyroidectomy History of tooth extraction Social History Social History Housing: House Alcohol intake: never Patient Tobacco Use Status: Former Tobacco user e-Cigarette/Vaping Use: Never Used Second Hand Smoke Exposure: No Advance Directives: Yes Advance Directives Information Provided: Yes Advance Directives on File: No service: No Current occupational status: retired Cognitive needs: Yes (cane) Hearing needs: No Vision needs: Yes (glasses) Physical Exam Vital Signs: Vital Signs: Last Vital Signs Temp 97.7 F 01/19/22 11:32 Pulse 61 01/19/22 11:32 Resp 16 01/19/22 11:32 BP 139/56 L 01/19/22 11:32 Pulse Ox 97 01/19/22 11:32 O2 Del Method 01/19/22 11:32 BMI result Body Mass Index 34.3 Const: Other: Appearance: Alert. Oriented X3. No acute distress. Eyes: Pupils equal, round and reactive to light. ENT: Pharynx normal. Neck: Normal inspection. Neck supple. No lymph nodes noted. No crepitus CVS: Normal heart rate and rhythm. Pulses normal. Normal S1 and S2, loud systolic murmur left sternal border Respiratory: No respiratory distress. Breath sounds normal. No Wheezing. No rales Abdomen: Soft and nontender. No rigidity. No distention. Skin: Skin warm and dry. Normal skin color. Normal skin turgor. Extremities: trace pitting edema bilaterally. No Lacerations. No Rash Neuro: Oriented X 3. No motor deficit. No sensory deficit. Moving all extremities. No slurred speech. CN 2 through 12 grossly intact Psych: calm, cooperative, normal affect Course Course Course Narrative: EKG, labs and imaging pending. At this time, patient is asymptomatic. Patient's troponin is negative, at baseline. EKG within normal limits. Patient's chemistry hemolyzed. Patient states that she does not want to have her blood redrawn. Patient does not want to wait for a 2nd troponin. I discussed with the patient that ideally we should wait until at least 15:00, 2 hours from now to repeat blood work, repeat troponin to rule out the chest pain for cardiac etiology. patient states that she has urgent matters to attend to and she cannot wait to get blood drawn and wait for the results. Patient states that several years ago she had a stress test, states it was normal. I discussed with the patient that she needs to follow up with her primary care physician, and with cardiology. patient's blood pressure 139/56, pulse 71, 97% on room air. Patient remains asymptomatic at time of discharge MDM - Chest Pain Lab Data Result diagrams: 01/19/22 12:10 01/19/22 12:10 Labs: Lab Results 01/19/22 01/19/22 Range/Units 12:10 12:10 WBC 9.0 (4.8-10.8) X10*3/uL RBC 4.28 (4.20-5.50) X10*6/uL Hgb 12.0 (12.0-16.0) g/dl Hct 35.3 L (37.0-47.0) % MCV 82.5 (80.0-98.0) fL MCH 28.0 (27.0-33.0) pg MCHC 34.0 (31.0-35.0) g/dl RDW 13.3 (11.0-16.0) % Plt Count 260 (160-400) X10*3/uL MPV 9.3 L (9.4-12.3) fL Immature Gran % (Auto) 0.3 (0.0-0.4) % Neut % (Auto) 64.1 (45-73) % Lymph % (Auto) 25.5 (20-40) % [place] % (Auto) 7.3 (2-11) % Eos % (Auto) 2.0 (0-4) % Baso % (Auto) 0.8 (0-2) % Lymph # (Auto) 2.3 (1.2-4.9) X10*3/uL [place] # (Auto) 0.7 (0.1-1.2) X10*3/uL Eos # (Auto) 0.2 (0.0-0.4) X10*3/uL Baso # (Auto) 0.1 (0.0-0.2) X10*3/uL Abs Immat Gran (auto) 0.03 (0.00-0.03) X10*3/uL Absolute Neuts (auto) 5.8 (2.0-8.3) x10*3/uL Absolute Nucleated RBC 0.000 (0.0-0.012) X10*3/uL Nucleated RBC % (auto) 0.0 (0.0-0.2) /100WBC Troponin I High Sens 7.7 (<3.5-17.0) ng/L Discharge Plan Discharge Clinical Impression: Atypical chest pain Patient Disposition: Left Against Medical Advice Instructions: Chest Pain (ED) Additional Instructions: You did not want to wait for 2 more hours to repeat blood work (troponin level), which would help us rule out any cardiac etiology of her chest pain. If you have any reoccurring symptoms, please return to the emergency room. Also, please discuss with her primary care physician that you may need a stress test since you have been experiencing intermittent chest pain. Please follow-up with your primary care physician tomorrow. If you have any worsening or new symptoms, please return to the emergency room or call 911 Prescriptions: No Action (DME) blood-glucose meter [FreeStyle Lite Meter] Kit See Rx Instructions .Route Qty: 1 0RF Rx Instructions: Test once daily levothyroxine 75 mcg tablet 75 mcg PO DAILY Qty: 90 0RF metformin 500 mg tablet extended release 24 hr 1,000 mg PO BID Qty: 120 1RF atorvastatin 10 mg tablet 10 mg PO DAILY Qty: 90 0RF isosorbide mononitrate 60 mg tablet extended release 24 hr 60 mg PO DAILY Qty: 90 0RF losartan 50 mg tablet 50 mg PO DAILY Qty: 90 0RF nitroglycerin 0.4 mg tablet, sublingual 0.4 mg sublingual Q5M Qty: 30 0RF Rx Instructions: do not exceed 3 doses per episode (DME) FreeStyle Lite Strips Strip See Rx Instructions .Route Qty: 100 0RF Rx Instructions: Test once daily (DME) lancets [FreeStyle Lancets] 28 gauge misc See Rx Instructions .Route Qty: 100 0RF Rx Instructions: Test once daily Referrals: Dandy Go MD [Physician] - 2 days ( Intermittent chest pain)
[2022-01-19 12:15] LABS: MANUAL DIFF FLAG NO
[2022-01-19 12:17] LABS: Basophils Absolute Auto 0.1 X10*3/uL (0.0-0.2); Basophils Percent Auto 0.8 % (0-2); Eosinophils Absolute Auto 0.2 X10*3/uL (0.0-0.4); Hematocrit 35.3 % (37.0-47.0); Imm Gran Abs Auto 0.03 X10*3/uL (0.00-0.03); Imm Gran Pct Auto 0.3 % (0.0-0.4); Lymphocytes Absolute Auto 2.3 X10*3/uL (1.2-4.9); Lymphocytes Percent Auto 25.5 % (20-40); Mean Corpuscular Volume 82.5 fL (80.0-98.0); Mean Platelet Volume 9.3 fL (9.4-12.3); Monocytes Absolute Auto 0.7 X10*3/uL (0.1-1.2); Monocytes Percent Auto 7.3 % (2-11); Neutrophils Absolute Auto 5.8 x10*3/uL (2.0-8.3); Neutrophils Percent Auto 64.1 % (45-73); Platelet Count 260 X10*3/uL (160-400); Red Blood Count 4.28 X10*6/uL (4.20-5.50); Red Cell Distribution Width 13.3 % (11.0-16.0)
[2022-01-19 12:37] LABS: Troponin-I High Sensitivity 7.7 ng/L (<3.5-17.0)
== END 2022-01-19 14:20 | disposition left against medical advice (07) ==
PROVIDERS: Emergency Provider Emergency Medicine
DX: R07.89 Other chest pain (principal); R42 Dizziness and giddiness; Z79.899 Other long term (current) drug therapy; Z87.891 Personal history of nicotine dependence
CPT/HCPCS: 36415; 71045; 84484; 85025; 93005; 99283

== ENCOUNTER 2022-03-03 22:31 | Emergency (ER) | payer MEDICARE, SELFPAY ==
--- NOTE | ~2022-03-03 | XR_ITS ---
EXAMINATION: XR CHEST CLINICAL INFORMATION: Shortness of breath. COMPARISON: 07/22/2021 chest radiograph. TECHNIQUE: Frontal view of the chest was obtained. FINDINGS: Mild opacities are seen at the left lung base. There is mild blunting of the left costophrenic angle. The left upper lung field and right lung are clear. The heart and mediastinal structures are unremarkable. XR/XR chest 1V IMPRESSION: Left basilar opacities suggesting atelectasis and/or infiltrate. A small left pleural effusion cannot be excluded.
--- NOTE | 2022-03-03 22:53 | ECG_ITS ---
Test Reason : sob Blood Pressure : / mmHG Vent. Rate : 100 BPM Atrial Rate : 100 BPM P-R Int : 186 ms QRS Dur : 090 ms QT Int : 372 ms P-R-T Axes : 032 -56 046 degrees QTc Int : 479 ms Normal sinus rhythm Left anterior fascicular block Minimal voltage criteria for LVH, may be normal variant ( [place] product ) Cannot rule out Inferior infarct (cited on or before 19-JAN-2022) Possible Anterolateral infarct , age undetermined Abnormal ECG When compared with ECG of 19-JAN-2022 11:55, Vent. rate has increased BY 41 BPM Borderline criteria for Anterior infarct are now Present Borderline criteria for Anterolateral infarct are now Present QT has lengthened Referred By: Denisse Rousseau Electronically Signed By:RENUKA MARTÍNEZ
--- NOTE | 2022-03-03 22:54 | ED_ITS ---
HPI - SOB/Dyspnea General Chief Complaint: Dyspnea Stated Complaint: shortness of breath Time Seen by Provider: 03/03/22 22:46 Source: patient and EMS Mode of arrival: EMS Limitations: no limitations History of Present Illness HPI Narrative: Patient comes to the emergency room complaining of cough. Patient states it started approximately 24 hours ago. Patient denies chest pain, no fever or chills. Patient states it is a dry cough. Patient is known to have CHF, has been out of her medications were over 3 months because she is in the process of changing providers. Related Data Previous Rx's Medication Instructions Recorded blood-glucose meter (FreeStyle #1 ea 09/29/21 Lite Meter kit) atorvastatin 10 mg tablet 10 mg PO DAILY #90 tabs 11/23/21 blood sugar diagnostic (FreeStyle #100 ea 11/23/21 Lite Strips) isosorbide mononitrate 60 mg 60 mg PO DAILY #90 tabs 11/23/21 tablet,extended release 24 hr lancets 28 gauge (FreeStyle #100 ea 11/23/21 Lancets) losartan 50 mg tablet 50 mg PO DAILY #90 tabs 11/23/21 nitroglycerin 0.4 mg sublingual 0.4 mg sublingual Q5M #30 tabs 11/23/21 tablet metformin 500 mg tablet,extended 1,000 mg PO BID #120 tabs 01/05/22 release 24 hr levothyroxine 75 mcg tablet 75 mcg PO DAILY #90 tabs 01/26/22 levofloxacin 500 mg tablet 500 mg PO DAILY #6 tabs 03/04/22 Allergies Allergy/AdvReac Type Severity Reaction Status Date / Time insulin detemir Allergy Unknown BRUISES Verified 01/19/22 11:38 Iodinated Contrast Media Allergy Unknown UNKNOWN Verified 01/19/22 11:38 [IV CONTRAST] lisinopril [From ZESTRIL] Allergy Unknown COUGH Verified 01/19/22 11:38 metformin [METFORMIN] Allergy Unknown UNKNOWN Verified 01/19/22 11:38 metoprolol [METOPROLOL] Allergy Unknown SEVERE Verified 01/19/22 11:38 ANGINA oxybutynin Allergy Unknown Unknown Verified 01/19/22 11:38 Penicillins [PENICILLINS] Allergy Unknown UNKNOWN Verified 01/19/22 11:38 solifenacin [Vesicare] Allergy Unknown Unknown Verified 07/12/22 11:38 THERMONOL Allergy Unknown ANAPHYLATIC, Verified 01/19/22 11:38 BRUISING gluten [GLUTEN] AdvReac Intermediate STOMACH Verified 01/19/22 11:38 UPSET bee stings Allergy Unknown anaphylaxis Uncoded 01/19/22 11:38 DYE IVP Allergy Unknown anaphylaxis Uncoded 01/19/22 11:38 Review of Systems Review of Systems: Constitutional : No Weight loss, No Fever, No Chills, No Night Sweats, No Fatigue, No Malaise ENT/Mouth : No Hearing loss, No Ear Pain, No Nasal Congestion, No Sinus Pain, No Hoarseness, No sore throat, No Rhinorrhea, No Swallowing Difficulty Eyes: No Eye Pain, No Swelling, No Redness, No Foreign Body, No Discharge, No Vision Changes Cardiovascular : No Chest Pain, No SOB, No Dyspnea on Exertion, No Orthopnea, complaining of palpitations and chronic lower extremity edema Respiratory : Complaining of dry Cough, No Sputum, No Wheezing, No Smoke Exposure, No Dyspnea Gastrointestinal : No Nausea, No Vomiting, No Diarrhea, No Constipation, No abdominal Pain, No Hematochezia, No Melena Genitourinary : no irregular bleeding, No Dysuria, No Urinary Frequency, No Hematuria, No Urinary Incontinence, No Urgency, No Flank Pain, No Urinary Flow Changes, No Hesitancy Musculoskeletal : No joint pain, No Myalgias, No Joint Swelling Skin : No Skin Lesions, No rash Neuro : No Weakness, No Numbness, No Paresthesias, No Loss of Consciousness, No Dizziness, No Headache Psych : No Anxiety/Panic, No Depression, No SI/HI/AH/VH, No Social Issues, Heme/Lymph: No Bruising, No Bleeding,No Lymphadenopathy Endocrine : No Polyuria, No Polydipsia, No Temperature Intolerance [facility] Past Medical History Medical History (Updated 03/04/22 @ 04:50 by Denisse Rousseau MD) Asthma CHF (congestive heart failure) Diabetes mellitus with hyperglycemia Diabetes type 2, controlled Essential hypertension Fibromyalgia Hypertension Hypothyroid Non compliance w medication regimen Surgical History History of cholecystectomy History of left hip replacement History of thyroidectomy History of tooth extraction Social History Social History Housing: House Alcohol intake: never Patient Tobacco Use Status: Former Tobacco user Smoked in Last 30 Days: No e-Cigarette/Vaping Use: Never Used Second Hand Smoke Exposure: No Use of substances other than those prescribed or required for medical reasons: No Advance Directives: No Advance Directives Information Provided: Yes service: No Current occupational status: retired Cognitive needs: Yes (cane) Hearing needs: No Vision needs: Yes (glasses) Physical Exam Vital Signs: Vital Signs: Last Vital Signs Temp 97.9 F 03/04/22 04:46 Pulse 78 03/04/22 04:46 Resp 16 03/04/22 04:46 BP 123/42 L 03/04/22 04:46 Pulse Ox 97 03/04/22 04:46 O2 Del Method 03/04/22 04:46 BMI result Body Mass Index 34.3 Const: Other: Appearance: Alert. Oriented X3. No acute distress. Eyes: Pupils equal, round and reactive to light. ENT: Pharynx normal. Neck: Normal inspection. Neck supple. No lymph nodes noted. No crepitus CVS: Normal heart rate and rhythm. Pulses normal. Normal S1 and S2 Respiratory: No respiratory distress. Mild occasional bilateral wheezing, good air movement, No rales Abdomen: Soft and nontender. No rigidity. No distention. Skin: Skin warm and dry. Normal skin color. Normal skin turgor. Extremities: +2 pitting edema bilaterally No Lacerations. No Rash Neuro: Oriented X 3. No motor deficit. No sensory deficit. Moving all extremities. No slurred speech. CN 2 through 12 grossly intact Psych: calm, cooperative, normal affect Course Course Course Narrative: System was down, please see scanned sheets. Patient received p.o. levofloxacin, by time of discharge ambulation trial in 7% on room air, no chest pain or shortness of breath, point of care 182, patient states she has glimepiride at home. MDM - SOB/Dyspnea Lab Data Result diagrams: 03/03/22 23:41 03/03/22 23:41 Labs: Lab Results 03/03/22 03/03/22 03/03/22 Range/Units 23:41 23:41 23:41 WBC 12.0 H (4.8-10.8) X10*3/uL RBC 4.31 (4.20-5.50) X10*6/uL Hgb 12.1 (12.0-16.0) g/dl Hct 36.4 L (37.0-47.0) % MCV 84.5 (80.0-98.0) fL MCH 28.1 (27.0-33.0) pg MCHC 33.2 (31.0-35.0) g/dl RDW 13.9 (11.0-16.0) % Plt Count 292 (160-400) X10*3/uL MPV 9.4 (9.4-12.3) fL Immature Gran % (Auto) 0.5 H (0.0-0.4) % Neut % (Auto) 49.4 (45-73) % Lymph % (Auto) 36.7 (20-40) % [place] % (Auto) 9.4 (2-11) % Eos % (Auto) 3.4 (0-4) % Baso % (Auto) 0.6 (0-2) % Lymph # (Auto) 4.4 (1.2-4.9) X10*3/uL [place] # (Auto) 1.1 (0.1-1.2) X10*3/uL Eos # (Auto) 0.4 (0.0-0.4) X10*3/uL Baso # (Auto) 0.1 (0.0-0.2) X10*3/uL Abs Immat Gran (auto) 0.06 H (0.00-0.03) X10*3/uL Absolute Neuts (auto) 6.0 (2.0-8.3) x10*3/uL Absolute Nucleated RBC 0.000 (0.0-0.012) X10*3/uL Nucleated RBC % (auto) 0.0 (0.0-0.2) /100WBC Sodium 133 L (135-145) mmol/L Potassium 4.6 (3.3-5.1) mmol/L Chloride 98 (96-108) mmol/L Carbon Dioxide 20 L (22-29) mmol/L Anion Gap 20 (12-20) BUN 20 H (9-16) mg/dL Creatinine 1.21 (0.5-1.4) mg/dL Estim Creat Clear Calc 39.1 Estimated GFR 43 POC Glucose (60-115) mg/dL Random Glucose 366 H* (60-115) mg/dL Lactic Acid 3.8 H* (0.5-2.0) mmol/L Calcium 8.6 (8.4-10.2) mg/dL Total Bilirubin 0.7 (0.0-1.0) mg/dL Direct Bilirubin 0.2 (0.0-0.5) mg/dL AST 29 D (5-31) U/L ALT 15 (0-31) U/L Alkaline Phosphatase 74 (39-117) U/L Troponin I High Sens (<3.5-17.0) ng/L B-Natriuretic Peptide (<100) pg/mL Total Protein 7.4 (6.5-8.0) g/dL Albumin 3.5 (3.5-5.0) g/dL COVID-19 ([facility]) (Negative) COVID-19 Clin Com 03/03/22 03/03/22 03/04/22 Range/Units 23:41 23:41 01:44 WBC (4.8-10.8) X10*3/uL RBC (4.20-5.50) X10*6/uL Hgb (12.0-16.0) g/dl Hct (37.0-47.0) % MCV (80.0-98.0) fL MCH (27.0-33.0) pg MCHC (31.0-35.0) g/dl RDW (11.0-16.0) % Plt Count (160-400) X10*3/uL MPV (9.4-12.3) fL Immature Gran % (Auto) (0.0-0.4) % Neut % (Auto) (45-73) % Lymph % (Auto) (20-40) % [place] % (Auto) (2-11) % Eos % (Auto) (0-4) % Baso % (Auto) (0-2) % Lymph # (Auto) (1.2-4.9) X10*3/uL [place] # (Auto) (0.1-1.2) X10*3/uL Eos # (Auto) (0.0-0.4) X10*3/uL Baso # (Auto) (0.0-0.2) X10*3/uL Abs Immat Gran (auto) (0.00-0.03) X10*3/uL Absolute Neuts (auto) (2.0-8.3) x10*3/uL Absolute Nucleated RBC (0.0-0.012) X10*3/uL Nucleated RBC % (auto) (0.0-0.2) /100WBC Sodium (135-145) mmol/L Potassium (3.3-5.1) mmol/L Chloride (96-108) mmol/L Carbon Dioxide (22-29) mmol/L Anion Gap (12-20) BUN (9-16) mg/dL Creatinine (0.5-1.4) mg/dL Estim Creat Clear Calc Estimated GFR POC Glucose 300 H (60-115) mg/dL Random Glucose (60-115) mg/dL Lactic Acid (0.5-2.0) mmol/L Calcium (8.4-10.2) mg/dL Total Bilirubin (0.0-1.0) mg/dL Direct Bilirubin (0.0-0.5) mg/dL AST (5-31) U/L ALT (0-31) U/L Alkaline Phosphatase (39-117) U/L Troponin I High Sens 10.2 (<3.5-17.0) ng/L B-Natriuretic Peptide 36 (<100) pg/mL Total Protein (6.5-8.0) g/dL Albumin (3.5-5.0) g/dL COVID-19 ([facility]) Negative (Negative) COVID-19 Clin Com See Note 03/04/22 03/04/22 Range/Units 02:14 03:04 WBC (4.8-10.8) X10*3/uL RBC (4.20-5.50) X10*6/uL Hgb (12.0-16.0) g/dl Hct (37.0-47.0) % MCV (80.0-98.0) fL MCH (27.0-33.0) pg MCHC (31.0-35.0) g/dl RDW (11.0-16.0) % Plt Count (160-400) X10*3/uL MPV (9.4-12.3) fL Immature Gran % (Auto) (0.0-0.4) % Neut % (Auto) (45-73) % Lymph % (Auto) (20-40) % [place] % (Auto) (2-11) % Eos % (Auto) (0-4) % Baso % (Auto) (0-2) % Lymph # (Auto) (1.2-4.9) X10*3/uL [place] # (Auto) (0.1-1.2) X10*3/uL Eos # (Auto) (0.0-0.4) X10*3/uL Baso # (Auto) (0.0-0.2) X10*3/uL Abs Immat Gran (auto) (0.00-0.03) X10*3/uL Absolute Neuts (auto) (2.0-8.3) x10*3/uL Absolute Nucleated RBC (0.0-0.012) X10*3/uL Nucleated RBC % (auto) (0.0-0.2) /100WBC Sodium (135-145) mmol/L Potassium (3.3-5.1) mmol/L Chloride (96-108) mmol/L Carbon Dioxide (22-29) mmol/L Anion Gap (12-20) BUN (9-16) mg/dL Creatinine (0.5-1.4) mg/dL Estim Creat Clear Calc Estimated GFR POC Glucose 245 H 208 H (60-115) mg/dL Random Glucose (60-115) mg/dL Lactic Acid (0.5-2.0) mmol/L Calcium (8.4-10.2) mg/dL Total Bilirubin (0.0-1.0) mg/dL Direct Bilirubin (0.0-0.5) mg/dL AST (5-31) U/L ALT (0-31) U/L Alkaline Phosphatase (39-117) U/L Troponin I High Sens (<3.5-17.0) ng/L B-Natriuretic Peptide (<100) pg/mL Total Protein (6.5-8.0) g/dL Albumin (3.5-5.0) g/dL COVID-19 ([facility]) (Negative) COVID-19 Clin Com Discharge Plan Discharge Clinical Impression: Pneumonia Patient Disposition: Home, Self-Care Instructions: Pneumonia (ED) Additional Instructions: Please follow-up with your primary care physician tomorrow. If you have any worsening or new symptoms, please return to the emergency room or call 911 Prescriptions: New levofloxacin 500 mg tablet 500 mg PO DAILY Qty: 6 0RF No Action (DME) blood-glucose meter [FreeStyle Lite Meter] Kit See Rx Instructions .Route Qty: 1 0RF Rx Instructions: Test once daily metformin 500 mg tablet extended release 24 hr 1,000 mg PO BID Qty: 120 1RF levothyroxine 75 mcg tablet 75 mcg PO DAILY Qty: 90 0RF atorvastatin 10 mg tablet 10 mg PO DAILY Qty: 90 0RF isosorbide mononitrate 60 mg tablet extended release 24 hr 60 mg PO DAILY Qty: 90 0RF losartan 50 mg tablet 50 mg PO DAILY Qty: 90 0RF nitroglycerin 0.4 mg tablet, sublingual 0.4 mg sublingual Q5M Qty: 30 0RF Rx Instructions: do not exceed 3 doses per episode (DME) FreeStyle Lite Strips Strip See Rx Instructions .Route Qty: 100 0RF Rx Instructions: Test once daily (DME) lancets [FreeStyle Lancets] 28 gauge misc See Rx Instructions .Route Qty: 100 0RF Rx Instructions: Test once daily
--- NOTE | 2022-03-03 23:06 | PC.NURSE ---
Atif Gonzáles (friend of the family) [phone] - please call Atif on pt.'s behalf. Pt. gave vebal permission
[2022-03-03 23:07] VITALS: BP 108/64; BP 92/34; PULSE 71; PULSE 78; RESP 14; TEMP 37; O2SAT 96; O2SAT 99; BMI 34.3
--- NOTE | 2022-03-03 23:15 | PC.NURSE ---
BPs reading soft to systolic 70s-90s on automatic cuff. This RN checked BP manually and is reading 95/45
[2022-03-03 23:16] VITALS: BP 95/45; PULSE 70; RESP 16; TEMP 37; O2SAT 95
[2022-03-03 23:51] LABS: MANUAL DIFF FLAG NO
[2022-03-03 23:53] LABS: Basophils Absolute Auto 0.1 X10*3/uL (0.0-0.2); Basophils Percent Auto 0.6 % (0-2); Eosinophils Absolute Auto 0.4 X10*3/uL (0.0-0.4); Eosinophils Percent Auto 3.4 % (0-4); Hematocrit 36.4 % (37.0-47.0); Hemoglobin 12.1 g/dl (12.0-16.0); Imm Gran Abs Auto 0.06 X10*3/uL (0.00-0.03); Imm Gran Pct Auto 0.5 % (0.0-0.4); Lymphocytes Absolute Auto 4.4 X10*3/uL (1.2-4.9); Lymphocytes Percent Auto 36.7 % (20-40); Mean Corpuscular HGB Conc 33.2 g/dl (31.0-35.0); Mean Corpuscular Hemoglobin 28.1 pg (27.0-33.0); Mean Corpuscular Volume 84.5 fL (80.0-98.0); Mean Platelet Volume 9.4 fL (9.4-12.3); Monocytes Absolute Auto 1.1 X10*3/uL (0.1-1.2); Monocytes Percent Auto 9.4 % (2-11); Neutrophils Percent Auto 49.4 % (45-73); Platelet Count 292 X10*3/uL (160-400); Red Blood Count 4.31 X10*6/uL (4.20-5.50); Red Cell Distribution Width 13.9 % (11.0-16.0)
[2022-03-04 00:08] LABS: Lactic Acid 3.8 mmol/L (0.5-2.0)
[2022-03-04 00:12] LABS: COVID-19 Test Negative (Negative); IDNOW Serial# 55D5AD1C
[2022-03-04 00:16] LABS: B Type Natriuretic Peptide 36 pg/mL (<100); Troponin-I High Sensitivity 10.2 ng/L (<3.5-17.0)
[2022-03-04 00:19] LABS: Alanine Aminotransferase 15 U/L (0-31); Albumin Level 3.5 g/dL (3.5-5.0); Alkaline Phosphatase 74 U/L (39-117); Anion Gap 20 (12-20); Aspartate Amino Transferase 29 U/L (5-31); Bilirubin Direct 0.2 mg/dL (0.0-0.5); Bilirubin Total 0.7 mg/dL (0.0-1.0); Blood Urea Nitrogen 20 mg/dL (9-16); Calcium 8.6 mg/dL (8.4-10.2); Carbon Dioxide 20 mmol/L (22-29); Chloride 98 mmol/L (96-108); Creatinine Clr Calc Pharmacy 39.1; Estimated Glomerular Filt Rate 43; Glucose Random 366 mg/dL (60-115); Potassium 4.6 mmol/L (3.3-5.1); Sodium 133 mmol/L (135-145); Total Protein 7.4 g/dL (6.5-8.0)
[2022-03-04 04:08] LABS: Reflex Lactate? Lactic Acid Added
[2022-03-04 04:44] LABS: Glucose, Whole Blood 208 mg/dL (60-115)
[2022-03-04 04:44] LABS: Glucose, Whole Blood 245 mg/dL (60-115)
[2022-03-04 04:44] LABS: Glucose, Whole Blood 300 mg/dL (60-115)
[2022-03-04 04:46] VITALS: BP 123/42; PULSE 78; RESP 16; TEMP 36.6; O2SAT 97
[2022-03-04 04:55] LABS: ~Lactic Acid-LAB USE ONLY 3.8 mmol/L (0.5-2.0)
[2022-03-04 04:56] LABS: Glucose, Whole Blood 182 mg/dL (60-115)
[2022-03-04] MEDS: 0.9 % Sodium Chloride 1,000 ML 999 ML IVCONT (05:24)
--- NOTE | 2022-03-04 05:24 | PC.NURSE ---
5U IVP Insulin administered by Leigh Ann Espinoza RN during downtime and was not able to be charted against
[2022-03-04] MEDS: levoFLOXacin 500 MG TABLET PO (05:25)
[2022-03-04 06:53] LABS: Reflex Lactate? 2 Y
== END 2022-03-04 05:41 | disposition home or self-care (01) ==
PROVIDERS: Emergency Provider Emergency Medicine
DX: J18.9 Pneumonia, unspecified organism (principal); R06.02 Shortness of breath; R05.9 Cough, unspecified; Z20.822 Contact with and (suspected) exposure to COVID-19; Z79.899 Other long term (current) drug therapy; Z87.891 Personal history of nicotine dependence
CPT/HCPCS: 36415; 71045; 80048; 80076; 82947; 83605; 83880; 84484; 85025; 87040; 87147; 87205; 87635; 93005; 96374; 99284; 99285

== ENCOUNTER 2022-03-06 16:54 | Emergency (ER) | payer MEDICARE, SELFPAY ==
[2022-03-06 17:32] VITALS: BP 189/51; PULSE 75; RESP 20; TEMP 36.7; O2SAT 97; BMI 36.6
--- NOTE | 2022-03-06 17:38 | PC.NURSE ---
Atif [phone] is patient's friend and HCP. He helps take care of her. Please call for more info and medical decision making and/or discharge instructions. Pt has some early dementia.
[2022-03-06 20:02] VITALS: BP 147/50; PULSE 82; RESP 16; TEMP 36.9; O2SAT 98
[2022-03-06 20:09] LABS: Glucose, Whole Blood 221 mg/dL (60-115)
--- NOTE | 2022-03-06 21:10 | ED_ITS ---
HPI - Recheck/Abnormal Lab/Rx General Chief Complaint: General Medical Stated Complaint: Abnormal labs Time Seen by Provider: 03/06/22 20:41 Source: patient and old records reviewed Mode of arrival: ambulatory Limitations: other (cognitive impairment) History of Present Illness complaint: abnormal lab Initial visit (ago): day(s) (03/03) Initial visit for: other (cough dx with pneumonia) Returns today for: called because of abnormal lab/test (called but lab was coag negative staph - contaminant) Symptoms since prior visit: improved Context: called for abnormal lab result Associated symptoms: none Treatments prior to arrival: other (given a dose of levofloxacin but lost the script needs new Rx) Related Data Previous Rx's Medication Instructions Recorded blood-glucose meter (Culture KitchenStyle #1 ea 09/29/21 Lite Meter kit) atorvastatin 10 mg tablet 10 mg PO DAILY #90 tabs 11/23/21 blood sugar diagnostic (FreeStyle #100 ea 11/23/21 Lite Strips) isosorbide mononitrate 60 mg 60 mg PO DAILY #90 tabs 11/23/21 tablet,extended release 24 hr lancets 28 gauge (FreeStyle #100 ea 11/23/21 Lancets) losartan 50 mg tablet 50 mg PO DAILY #90 tabs 11/23/21 nitroglycerin 0.4 mg sublingual 0.4 mg sublingual Q5M #30 tabs 11/23/21 tablet metformin 500 mg tablet,extended 1,000 mg PO BID #120 tabs 01/05/22 release 24 hr levothyroxine 75 mcg tablet 75 mcg PO DAILY #90 tabs 01/26/22 levofloxacin 500 mg tablet 500 mg PO DAILY #6 tabs 03/04/22 levofloxacin 500 mg tablet 500 mg PO DAILY #6 tabs 03/06/22 Allergies Allergy/AdvReac Type Severity Reaction Status Date / Time insulin detemir Allergy Unknown BRUISES Verified 03/06/22 17:35 Iodinated Contrast Media Allergy Unknown UNKNOWN Verified 03/06/22 17:35 [IV CONTRAST] lisinopril [From ZESTRIL] Allergy Unknown COUGH Verified 03/06/22 17:35 metformin [METFORMIN] Allergy Unknown UNKNOWN Verified 03/06/22 17:35 metoprolol [METOPROLOL] Allergy Unknown SEVERE Verified 03/06/22 17:35 ANGINA oxybutynin Allergy Unknown Unknown Verified 03/06/22 17:35 Penicillins [PENICILLINS] Allergy Unknown UNKNOWN Verified 03/06/22 17:35 solifenacin [Vesicare] Allergy Unknown Unknown Verified 03/06/22 17:35 THERMONOL Allergy Unknown ANAPHYLATIC, Verified 03/06/22 17:35 BRUISING gluten [GLUTEN] AdvReac Intermediate STOMACH Verified 03/06/22 17:35 UPSET bee stings Allergy Unknown anaphylaxis Uncoded 01/19/22 11:38 DYE IVP Allergy Unknown anaphylaxis Uncoded 01/19/22 11:38 Review of Systems Review of Systems: Constitutional : No Fever, No Chills ENT/Mouth : No sore throat, No Rhinorrhea, No Swallowing Difficulty Eyes: No Eye Pain, No Swelling, No Redness Cardiovascular : No Chest Pain, no SOB, No Orthopnea, pos Edema Respiratory : pos Cough, No Sputum, No Wheezing, no dyspnea Gastrointestinal : No Nausea, No Vomiting, No Diarrhea, No abdominal Pain, No Hematochezia, No Melena Genitourinary : No Dysuria, No Urinary Frequency, No Hematuria Musculoskeletal : No joint pain, No Myalgias Skin : No Skin Lesions, No rash Neuro : No Weakness, No Numbness, No Dizziness, No Headache Psych : No Anxiety/Panic, No Depression Heme/Lymph: No Bruising, No Lymphadenopathy Endocrine : No Polyuria, No Polydipsia All other systems reviewed and are negative [facility] Past Medical History Medical History Asthma CHF (congestive heart failure) Diabetes mellitus with hyperglycemia Diabetes type 2, controlled Essential hypertension Fibromyalgia Hypertension Hypothyroid Non compliance w medication regimen Surgical History History of cholecystectomy History of left hip replacement History of thyroidectomy History of tooth extraction Social History Social History Housing: House Alcohol intake: never Patient Tobacco Use Status: Former Tobacco user e-Cigarette/Vaping Use: Never Used Second Hand Smoke Exposure: No Advance Directives: Yes Advance Directives on File: Yes Advance Directives Date on File: 03/04/22 service: No Current occupational status: retired Cognitive needs: Yes (cane) Hearing needs: No Vision needs: Yes (glasses) Physical Exam Vital Signs: Vital Signs: Last Vital Signs Temp 98.4 F 03/06/22 20:02 Pulse 82 03/06/22 20:02 Resp 16 03/06/22 20:02 BP 147/50 H 03/06/22 20:02 Pulse Ox 98 03/06/22 20:02 O2 Del Method 03/06/22 20:02 BMI result Body Mass Index 36.6 Appearance: Alert. Oriented X3. No acute distress. Eyes: Pupils equal, round and reactive to light. ENT: Pharynx normal. Neck: Normal inspection. Neck supple. CVS: Normal heart rate and rhythm. Pulses normal. Respiratory: No respiratory distress. Breath sounds slightly diminished at the bases Abdomen: Soft and nontender. Skin: Skin warm and dry. Normal skin color. Normal skin turgor. Extremities: 1+ pitting lower extremity edema. No calf ttp Neuro: Oriented X 3. No motor deficit. No sensory deficit. MDM - Recheck/Abnormal Lab/Rx MDM Narrative Medical decision making narrative: 81 yo female with hx of DM, hypothyroidism, CAD, HLD, SANDHYA, HTN was seen on 03/03 dx with pneumonia sent home on levofloxacin did not fill Rx as it was paper and she was confused has mild cognitive impairment. She states she feels fine and is doing well - has no complaints. Called to come to ED for + blood cultures 03/03 that were in fact coag elle boyle so contaminant - called her friend and they have no complaints restarted on levofloxacin. Patient has no complaints. Lab Data Labs: Lab Results 03/06/22 Range/Units 20:01 POC Glucose 221 H (60-115) mg/dL Discharge Plan Discharge Clinical Impression: Pneumonia Qualifiers: Pneumonia type: due to unspecified organism Laterality: unspecified laterality Lung location: unspecified part of lung Qualified Code(s): J18.9 - Pneumonia, unspecified organism Patient Disposition: Home, Self-Care Instructions: Pneumonia (ED) Additional Instructions: return to ED for any worsening symptoms or concerns your blood cultures were contaminated you do not have bacteremia you were started on the levofloxacin in the emergency department please sampler pickup the rest in the emergency department Prescriptions: New levofloxacin 500 mg tablet 500 mg PO DAILY Qty: 6 0RF No Action (DME) blood-glucose meter [FreeStyle Lite Meter] Kit See Rx Instructions .Route Qty: 1 0RF Rx Instructions: Test once daily metformin 500 mg tablet extended release 24 hr 1,000 mg PO BID Qty: 120 1RF levothyroxine 75 mcg tablet 75 mcg PO DAILY Qty: 90 0RF levofloxacin 500 mg tablet 500 mg PO DAILY Qty: 6 0RF atorvastatin 10 mg tablet 10 mg PO DAILY Qty: 90 0RF isosorbide mononitrate 60 mg tablet extended release 24 hr 60 mg PO DAILY Qty: 90 0RF losartan 50 mg tablet 50 mg PO DAILY Qty: 90 0RF nitroglycerin 0.4 mg tablet, sublingual 0.4 mg sublingual Q5M Qty: 30 0RF Rx Instructions: do not exceed 3 doses per episode (DME) FreeStyle Lite Strips Strip See Rx Instructions .Route Qty: 100 0RF Rx Instructions: Test once daily (DME) lancets [FreeStyle Lancets] 28 gauge misc See Rx Instructions .Route Qty: 100 0RF Rx Instructions: Test once daily Referrals: Physician,Unknown J [Primary Care Provider] - (primary care as needed if respiratory symptoms not better)
[2022-03-06] MEDS: levoFLOXacin 500 MG TABLET PO (21:55)
== END 2022-03-06 22:06 | disposition home or self-care (01) ==
PROVIDERS: Emergency Provider Emergency Medicine
DX: J18.9 Pneumonia, unspecified organism (principal); I10 Essential (primary) hypertension; E11.9 Type 2 diabetes mellitus without complications; E78.5 Hyperlipidemia, unspecified; Z87.891 Personal history of nicotine dependence; Z79.84 Long term (current) use of oral hypoglycemic drugs; Z79.02 Long term (current) use of antithrombotics/antiplatelets
CPT/HCPCS: 82947; 99284

== ENCOUNTER 2022-03-16 07:56 | Emergency (ER) | payer MEDICARE, SELFPAY ==
--- NOTE | ~2022-03-16 | CT_ITS ---
EXAMINATION: CT BRAIN AND CT CERVICAL SPINE WITHOUT CONTRAST. CLINICAL INFORMATION: Trauma COMPARISON: None TECHNIQUE: 5 mm thin axial and reformatted 2 mm thin sagittal and coronal images of brain were obtained without contrast. Subsequently axial 3 mm thin and reformatted 2 minutes thin sagittal coronal images of cervical spine were obtained. DLP FINDINGS: BRAIN: There is no acute intra-axial, extra-axial bleed, masses, collection or midline shift. There is no acute infarction in evolution. There is no edema. The lateral ventricles are symmetrical in size and configuration but moderately enlarged with diffuse periventricular hypodensity in both cerebral hemispheres.. The sharp to white matter difference is maintained normal. Bone windows reveal no calvarial abnormality. There is benign hyperostosis frontalis interna. No scalp soft tissue abnormality. Bilateral paranasal sinuses and mastoid air cells are well-aerated. Incidental finding of asymmetric lens with right lens appearing slightly smaller. Cervical spine: There is normal cervical lordosis. The vertebral heights and alignment is normal. Mild loss of C6-C7 disc height with mild posterior spondylosis C3-C4, C4-C5, C5-C6 and C6-C7 disc levels. There are subchondral degenerative changes at the C1-C2 disc level with a subchondral cyst along the anterior margin of mid C2 dense. There is severe right C5-C6 neural foraminal narrowing from uncovertebral hypertrophic changes. Moderate ventral spondylosis seen throughout cervical spine. No visible acute fracture or dislocation seen. CT/CT cervical spine wo IV con IMPRESSION: No acute intracranial process seen. Age-related moderate cerebral volume loss and chronic small vessel ischemic changes. Degenerative disc changes C6-C7 disc level with severe right C5-C6 neural from narrowing from uncovertebral hypertrophic changes. No visible acute fracture, dislocation or subluxation seen.
--- NOTE | ~2022-03-16 | XR_ITS ---
EXAMINATION: XR SHOULDER, RIGHT CLINICAL INFORMATION: Trauma. COMPARISON: None TECHNIQUE: AP external rotation, Grashey, scapular Y, and axillary views of the right shoulder. FINDINGS: There is mild loss of right AC joint with minimal spurring. There is enthesophytes along the superior acromion. Mild spurring along the inferior glenohumeral joints is noted. No acute fracture, dislocation or calcification seen. No soft tissue swelling. XR/XR shoulder RT min 2V IMPRESSION: No acute fracture or dislocation seen. Mild degenerative changes right AC joint.
[2022-03-16 08:09] VITALS: BP 137/67; BP 138/88; PULSE 65; RESP 14; TEMP 36.4; O2SAT 98; BMI 38.5
--- NOTE | 2022-03-16 08:18 | ECG_ITS ---
Test Reason : fall Blood Pressure : / mmHG Vent. Rate : 067 BPM Atrial Rate : 067 BPM P-R Int : 190 ms QRS Dur : 098 ms QT Int : 396 ms P-R-T Axes : 042 -45 045 degrees QTc Int : 418 ms Normal sinus rhythm Left axis deviation Minimal voltage criteria for LVH, may be normal variant ( [place] product ) Abnormal ECG When compared with ECG of 04-MAR-2022 00:43, Vent. rate has decreased BY 33 BPM Borderline criteria for Anterior infarct are no longer Present Borderline criteria for Anterolateral infarct are no longer Present QT has shortened Referred By: Luke Rod Electronically Signed By:RENUKA MARTÍNEZ
--- NOTE | 2022-03-16 08:19 | ED_ITS ---
HPI - Fall General Chief Complaint: Fall Stated Complaint: neck pain s/p fall,+ccollar Time Seen by Provider: 03/16/22 08:15 Source: patient Limitations: no limitations History of Present Illness HPI Narrative: fell while in the kitchen denies chest pain /LOC/dizzness,she states that she was putting away something and fell,call herself 911 complaint: fall Onset (ago): hour(s) (1) Fall from: standing Fall witnessed: no Place fall occurred: home Loss of consciousness: none Related Data Previous Rx's Medication Instructions Recorded blood-glucose meter (FreeStyle #1 ea 09/29/21 Lite Meter kit) atorvastatin 10 mg tablet 10 mg PO DAILY #90 tabs 11/23/21 blood sugar diagnostic (FreeStyle #100 ea 11/23/21 Lite Strips) isosorbide mononitrate 60 mg 60 mg PO DAILY #90 tabs 11/23/21 tablet,extended release 24 hr lancets 28 gauge (FreeStyle #100 ea 11/23/21 Lancets) losartan 50 mg tablet 50 mg PO DAILY #90 tabs 11/23/21 nitroglycerin 0.4 mg sublingual 0.4 mg sublingual Q5M #30 tabs 11/23/21 tablet metformin 500 mg tablet,extended 1,000 mg PO BID #120 tabs 01/05/22 release 24 hr levothyroxine 75 mcg tablet 75 mcg PO DAILY #90 tabs 01/26/22 levofloxacin 500 mg tablet 500 mg PO DAILY #6 tabs 03/04/22 levofloxacin 500 mg tablet 500 mg PO DAILY #6 tabs 03/06/22 Allergies Allergy/AdvReac Type Severity Reaction Status Date / Time insulin detemir Allergy Unknown BRUISES Verified 03/06/22 17:35 Iodinated Contrast Media Allergy Unknown UNKNOWN Verified 03/06/22 17:35 [IV CONTRAST] lisinopril [From ZESTRIL] Allergy Unknown COUGH Verified 03/06/22 17:35 metformin [METFORMIN] Allergy Unknown UNKNOWN Verified 03/06/22 17:35 metoprolol [METOPROLOL] Allergy Unknown SEVERE Verified 03/06/22 17:35 ANGINA oxybutynin Allergy Unknown Unknown Verified 03/06/22 17:35 Penicillins [PENICILLINS] Allergy Unknown UNKNOWN Verified 03/06/22 17:35 solifenacin [Vesicare] Allergy Unknown Unknown Verified 03/06/22 17:35 THERMONOL Allergy Unknown ANAPHYLATIC, Verified 03/06/22 17:35 BRUISING gluten [GLUTEN] AdvReac Intermediate STOMACH Verified 03/06/22 17:35 UPSET bee stings Allergy Unknown anaphylaxis Uncoded 01/19/22 11:38 DYE IVP Allergy Unknown anaphylaxis Uncoded 01/19/22 11:38 Review of Systems Constitutional: Constitutional: Reports no additional constitutional complaints ENT: Reports system reviewed and no additional complaints, except as documented Cardiovascular: Cardiovascular: Reports no additional cardiovascular co mplaints and Reports Abdominal Cramping after Meds Musculoskeletal: Musculoskeletal: Reports no additional musculoskeletal complaints PMFSH Past Medical History Medical History Asthma CHF (congestive heart failure) Diabetes mellitus with hyperglycemia Diabetes type 2, controlled Essential hypertension Fibromyalgia Hypertension Hypothyroid Non compliance w medication regimen Surgical History History of cholecystectomy History of left hip replacement History of thyroidectomy History of tooth extraction Social History Social History Housing: House Alcohol intake: never Patient Tobacco Use Status: Former Tobacco user e-Cigarette/Vaping Use: Never Used Second Hand Smoke Exposure: No Use of substances other than those prescribed or required for medical reasons: No Advance Directives: Yes Advance Directives on File: Yes Advance Directives Date on File: 11/02/21 service: No Current occupational status: retired Cognitive needs: Yes (cane) Hearing needs: No Vision needs: Yes (glasses) Physical Exam Vital Signs: Vital Signs: Last Vital Signs Temp 97.6 F 03/16/22 08:09 Pulse 71 03/16/22 10:56 Resp 18 03/16/22 10:56 BP 118/70 03/16/22 10:56 Pulse Ox 98 03/16/22 10:56 O2 Del Method 03/16/22 10:56 BMI result Body Mass Index 38.5 Const: General: cooperative, comfortable, no acute distress and well developed Nutritional Appearance: average body habitus and well nourished Orientation/consciousness: oriented to person HEENT: Head: Yes normal to inspection General nose exam: Normal external nose present Face and sinus: Yes normal facial exam Mouth: Normal oral and palatal mucosa present Neck: Neck: Yes normal visual inspection and Yes full ROM Thyroid: Thyroid normal Neuro: General: oriented to person Course Reevaluation(s) Reevaluation #1: The patient was re-examined at 11:10 , she wants to go home, workup is negative including head CT C-spine and blood work. The patient was ambulated by the nurse in the emergency department, she did very well, she ambulated by herself. She has a ride. At this time will discharge the patient MDM - Fall Lab Data Result diagrams: 03/16/22 08:43 03/16/22 08:43 Labs: Lab Results 03/16/22 03/16/22 03/16/22 Range/Units 08:43 08:43 08:43 WBC 8.4 (4.8-10.8) X10*3/uL RBC 4.64 (4.20-5.50) X10*6/uL Hgb 12.9 (12.0-16.0) g/dl Hct 39.9 (37.0-47.0) % MCV 86.0 (80.0-98.0) fL MCH 27.8 (27.0-33.0) pg MCHC 32.3 (31.0-35.0) g/dl RDW 13.8 (11.0-16.0) % Plt Count 237 (160-400) X10*3/uL MPV 9.1 L (9.4-12.3) fL Immature Gran % (Auto) 0.5 H (0.0-0.4) % Neut % (Auto) 64.8 (45-73) % Lymph % (Auto) 22.3 (20-40) % [place] % (Auto) 7.7 (2-11) % Eos % (Auto) 3.7 (0-4) % Baso % (Auto) 1.0 (0-2) % Lymph # (Auto) 1.9 (1.2-4.9) X10*3/uL [place] # (Auto) 0.7 (0.1-1.2) X10*3/uL Eos # (Auto) 0.3 (0.0-0.4) X10*3/uL Baso # (Auto) 0.1 (0.0-0.2) X10*3/uL Abs Immat Gran (auto) 0.04 H (0.00-0.03) X10*3/uL Absolute Neuts (auto) 5.5 (2.0-8.3) x10*3/uL Absolute Nucleated RBC 0.000 (0.0-0.012) X10*3/uL Nucleated RBC % (auto) 0.0 (0.0-0.2) /100WBC Sodium 138 (135-145) mmol/L Potassium 4.1 (3.3-5.1) mmol/L Chloride 102 (96-108) mmol/L Carbon Dioxide 25 (22-29) mmol/L Anion Gap 15 (12-20) BUN 15 (9-16) mg/dL Creatinine 0.83 (0.5-1.4) mg/dL Estim Creat Clear Calc 56.3 Estimated GFR > 60 Random Glucose 282 H (60-115) mg/dL Calcium 8.9 (8.4-10.2) mg/dL Total Bilirubin 0.7 (0.0-1.0) mg/dL AST 11 D (5-31) U/L ALT 10 (0-31) U/L Alkaline Phosphatase 63 (39-117) U/L Troponin I High Sens 13.0 (<3.5-17.0) ng/L Total Protein 7.1 (6.5-8.0) g/dL Albumin 3.7 (3.5-5.0) g/dL Imaging Data cspine: Radiologist's impression: CT cervical spine: The cervical vertebral bodies maintain normal heights. There is degenerative appearing anterolisthesis of C3 on C4. No traumatic listhesis is seen. There is no evidence of fracture. The craniovertebral junction is intact. The facet joints are normally aligned. There is multilevel degenerative spondylosis related to significant intervertebral disc height loss, disc osteophyte complexes, facet arthropathy, and uncovertebral hypertrophy. There is no high-grade narrowing the spinal canal. Multilevel neural foraminal stenosis is demonstrated. The upper lungs are grossly clear. The cervical soft tissues are within normal limits for patient's age. CT/CT head/brain wo con IMPRESSION: CT head: - No acute intracranial abnormality ? CT cervical spine: - No cervical spine fracture or traumatic malalignment. Multilevel degenerative spondylosis. Dictated By: KAYLAN MCCLURE MD Signed By: <Electronically signed by KAYLAN MCCLURE MD in OV> 12/15/21 1739 DD/ 1641 TD/TT:? Numerical Tool Programmer: ESME ECG Data Pacemaker model: NSR [address]-t changes Discharge Plan Discharge Clinical Impression: Fall Patient Disposition: Home, Self-Care Instructions: Fall Prevention for Older Adults (ED) Additional Instructions: Please follow-up with your primary care physician call today and make an appoi ntment. Return if you worse Prescriptions: No Action (DME) blood-glucose meter [FreeStyle Lite Meter] Kit See Rx Instructions .Route Qty: 1 0RF Rx Instructions: Test once daily metformin 500 mg tablet extended release 24 hr 1,000 mg PO BID Qty: 120 1RF levothyroxine 75 mcg tablet 75 mcg PO DAILY Qty: 90 0RF levofloxacin 500 mg tablet 500 mg PO DAILY Qty: 6 0RF levofloxacin 500 mg tablet 500 mg PO DAILY Qty: 6 0RF atorvastatin 10 mg tablet 10 mg PO DAILY Qty: 90 0RF isosorbide mononitrate 60 mg tablet extended release 24 hr 60 mg PO DAILY Qty: 90 0RF losartan 50 mg tablet 50 mg PO DAILY Qty: 90 0RF nitroglycerin 0.4 mg tablet, sublingual 0.4 mg sublingual Q5M Qty: 30 0RF Rx Instructions: do not exceed 3 doses per episode (DME) FreeStyle Lite Strips Strip See Rx Instructions .Route Qty: 100 0RF Rx Instructions: Test once daily (DME) lancets [FreeStyle Lancets] 28 gauge misc See Rx Instructions .Route Qty: 100 0RF Rx Instructions: Test once daily Referrals: Ian Trimble MD [Primary Care Provider] - 03/16/22 11:12 am Interventions: ED Discharge Assessment Last Done: 03/16/22 11:20 Discharge Date/Time: 03/16/22 11:22
[2022-03-16 08:47] LABS: MANUAL DIFF FLAG NO
[2022-03-16 08:51] LABS: Basophils Absolute Auto 0.1 X10*3/uL (0.0-0.2); Eosinophils Absolute Auto 0.3 X10*3/uL (0.0-0.4); Eosinophils Percent Auto 3.7 % (0-4); Hematocrit 39.9 % (37.0-47.0); Hemoglobin 12.9 g/dl (12.0-16.0); Imm Gran Abs Auto 0.04 X10*3/uL (0.00-0.03); Imm Gran Pct Auto 0.5 % (0.0-0.4); Lymphocytes Absolute Auto 1.9 X10*3/uL (1.2-4.9); Lymphocytes Percent Auto 22.3 % (20-40); Mean Corpuscular HGB Conc 32.3 g/dl (31.0-35.0); Mean Corpuscular Hemoglobin 27.8 pg (27.0-33.0); Mean Platelet Volume 9.1 fL (9.4-12.3); Monocytes Absolute Auto 0.7 X10*3/uL (0.1-1.2); Monocytes Percent Auto 7.7 % (2-11); Neutrophils Absolute Auto 5.5 x10*3/uL (2.0-8.3); Neutrophils Percent Auto 64.8 % (45-73); Platelet Count 237 X10*3/uL (160-400); Red Blood Count 4.64 X10*6/uL (4.20-5.50); Red Cell Distribution Width 13.8 % (11.0-16.0); White Blood Count 8.4 X10*3/uL (4.8-10.8)
[2022-03-16 09:17] LABS: Alanine Aminotransferase 10 U/L (0-31); Albumin Level 3.7 g/dL (3.5-5.0); Alkaline Phosphatase 63 U/L (39-117); Anion Gap 15 (12-20); Aspartate Amino Transferase 11 U/L (5-31); Bilirubin Total 0.7 mg/dL (0.0-1.0); Blood Urea Nitrogen 15 mg/dL (9-16); Calcium 8.9 mg/dL (8.4-10.2); Carbon Dioxide 25 mmol/L (22-29); Chloride 102 mmol/L (96-108); Creatinine Clr Calc Pharmacy 56.3; Estimated Glomerular Filt Rate > 60; Glucose Random 282 mg/dL (60-115); Potassium 4.1 mmol/L (3.3-5.1); Sodium 138 mmol/L (135-145); Total Protein 7.1 g/dL (6.5-8.0)
[2022-03-16 10:56] VITALS: BP 118/70; PULSE 71; RESP 18; O2SAT 98
== END 2022-03-16 11:22 | disposition home or self-care (01) ==
PROVIDERS: Emergency Provider Emergency Medicine; PCP Internal Medicine
DX: S16.1XXA Strain of muscle, fascia and tendon at neck level, initial encounter (principal); M54.2 Cervicalgia; R51.9 Headache, unspecified; M25.511 Pain in right shoulder; W01.0XXA Fall on same level from slipping, tripping and stumbling without subsequent striking against object, initial encounter; Y93.9 Activity, unspecified; Y92.009 Unspecified place in unspecified non-institutional (private) residence as the place of occurrence of the external cause; Y99.9 Unspecified external cause status; Z79.899 Other long term (current) drug therapy; Z87.891 Personal history of nicotine dependence
CPT/HCPCS: 36415; 70450; 72125; 73030; 80053; 84484; 85025; 93005; 99284

== ENCOUNTER 2022-03-24 14:32 | Inpatient (IN) | payer MEDICARE, SELFPAY ==
--- NOTE | ~2022-03-24 | XR_ITS ---
EXAMINATION: XR CHEST CLINICAL INFORMATION: Pain. COMPARISON: Chest radiograph dated from 03/03/2022. TECHNIQUE: Frontal view of the chest was obtained. FINDINGS: Stable appearance of the cardiomediastinal silhouette. Chronic interstitial thickening and chronic airspace opacity in the left lower lobe silhouetting the left costophrenic angle. No pneumothorax. No large pleural effusion. Degenerative changes of the shoulders. No acute osseous abnormalities. XR/XR chest 1V IMPRESSION: Chronic interstitial thickening and lateral left lower lobe opacities. Given persistency of the focal abnormalities in the left base, correlation with a chest CT is recommended to further assess and ensure the absence of underlying lesions, this could be performed in an elective setting.
--- NOTE | ~2022-03-24 | CT_ITS ---
EXAMINATION: CT ABDOMEN AND PELVIS WITHOUT CONTRAST CLINICAL INFORMATION: Left lower quadrant pain and diarrhea COMPARISON: None TECHNIQUE: Multidetector volumetric imaging was performed from the superior aspect of the liver through the pubic symphysis. Sagittal and coronal reformatted images were obtained on the technologist's workstation. This CT examination was performed using dose optimization techniques as appropriate, variously including the following: *Automated exposure control *Adjustment of mA and/or kV according to patient size (this includes techniques or standardized protocols for targeted exams where dose is matched to indication/reason for exam; i.e. extremities or head) *Use of iterative reconstruction technique DLP: 991 mGy-cm FINDINGS: LUNG BASES: The visualized lung bases are unremarkable. LIVER, GALLBLADDER, AND BILIARY TREE: There are 2 8 mm low-attenuation lesions in the lateral segment of the left lobe liver probably representing cysts. The liver is otherwise unremarkable. The gallbladder has been removed. There is no biliary duct dilatation. PANCREAS: There are atrophic changes of the pancreas. Pancreas is otherwise unremarkable. SPLEEN: Unremarkable. ADRENAL GLANDS: Unremarkable. KIDNEYS AND URETERS: The kidneys are normal in size, shape, and attenuation. No hydronephrosis, hydroureter, or calculi seen. No perinephric stranding. BLADDER: Not optimally distended and not well evaluated due to artifact from left hip replacement. GASTROINTESTINAL TRACT: There is severe diverticulosis of the colon. There is wall thickening of the sigmoid colon and it is difficult to exclude mild sigmoid diverticulitis. Small and large bowel is otherwise unremarkable. The appendix is unremarkable. The stomach is unremarkable. ABDOMINAL WALL: There are umbilical and periumbilical hernias containing fat. LYMPH NODES: Normal. VASCULAR: There is evidence of atherosclerotic disease. PELVIC VISCERA: Unremarkable. OSSEOUS STRUCTURES: There is a left hip replacement. There are severe degenerative changes of the spine. There is an old L1 vertebral body compression fracture. There is mild anterior subluxation of L4 with respect L5 probably related to facet arthritis. There is arthritis at the right hip joint. CT/CT abdomen pelvis wo IV con IMPRESSION: Severe diverticular disease of the distal colon and question mild sigmoid diverticulitis. Large umbilical and periumbilical hernias containing fat. Atrophic changes of the pancreas. Probable liver cysts. Fleischner guidelines were followed.
--- NOTE | 2022-03-24 14:51 | ECG_ITS ---
Test Reason : CHEST PRESSURE Blood Pressure : / mmHG Vent. Rate : 067 BPM Atrial Rate : 067 BPM P-R Int : 172 ms QRS Dur : 086 ms QT Int : 434 ms P-R-T Axes : 073 -61 029 degrees QTc Int : 458 ms Normal sinus rhythm Left anterior fascicular block Minimal voltage criteria for LVH, may be normal variant ( [place] product ) Inferior infarct , age undetermined Abnormal ECG When compared with ECG of 16-MAR-2022 08:40, Inferior infarct is now Present Referred By: Generic ED Physician Electronically Signed By:RENUKA MARTÍNEZ
[2022-03-24 14:53] VITALS: BP 115/52; PULSE 77; O2SAT 96
[2022-03-24 14:57] VITALS: BP 115/38; PULSE 67; RESP 18; TEMP 36.6; O2SAT 98; BMI 35.4
--- NOTE | 2022-03-24 15:05 | ED_ITS ---
HPI - Abdominal Pain General Chief Complaint: Abdominal Pain Stated Complaint: ABDOMINAL PAIN Time Seen by Provider: 03/24/22 14:44 Source: patient and old records reviewed Mode of arrival: EMS Limitations: other (poor historian) History of Present Illness HPI narrative: 81 yo female with hx of HTN, asthma, DM, hypothyroidism, fibromyalgia, CAD, sleep apnea here with c/o LLQ pain with diarrhea that started this morning. She also felt some chest pressure at that time. She was treated with antibiotics at the end of february - levofloxacin for pneumonia. She does report a history of diverticulitis in the past MD elicited complaint: abdominal pain Pertinent past history: diverticulitis Onset (ago): day(s) (this morning) Pain Consistency: constant Location: LLQ Quality: cramping and aching Radiation: none Migration to: no migration Exacerbating factors: movement Relieving factors: nothing Context: recent antibiotic use Associated symptoms: diarrhea, chills and other (had some slight chest pressure this AM) Related Data Previous Rx's Medication Instructions Recorded blood-glucose meter (RetiDiagStyle #1 ea 09/29/21 Lite Meter kit) atorvastatin 10 mg tablet 10 mg PO DAILY #90 tabs 11/23/21 blood sugar diagnostic (FreeStyle #100 ea 11/23/21 Lite Strips) isosorbide mononitrate 60 mg 60 mg PO DAILY #90 tabs 11/23/21 tablet,extended release 24 hr lancets 28 gauge (FreeStyle #100 ea 11/23/21 Lancets) losartan 50 mg tablet 50 mg PO DAILY #90 tabs 11/23/21 nitroglycerin 0.4 mg sublingual 0.4 mg sublingual Q5M #30 tabs 11/23/21 tablet metformin 500 mg tablet,extended 1,000 mg PO BID #120 tabs 01/05/22 release 24 hr levothyroxine 75 mcg tablet 75 mcg PO DAILY #90 tabs 01/26/22 levofloxacin 500 mg tablet 500 mg PO DAILY #6 tabs 03/04/22 levofloxacin 500 mg tablet 500 mg PO DAILY #6 tabs 03/06/22 Allergies Allergy/AdvReac Type Severity Reaction Status Date / Time insulin detemir Allergy Unknown BRUISES Verified 03/06/22 17:35 Iodinated Contrast Media Allergy Unknown UNKNOWN Verified 03/06/22 17:35 [IV CONTRAST] lisinopril [From ZESTRIL] Allergy Unknown COUGH Verified 03/06/22 17:35 metformin [METFORMIN] Allergy Unknown UNKNOWN Verified 03/06/22 17:35 metoprolol [METOPROLOL] Allergy Unknown SEVERE Verified 03/06/22 17:35 ANGINA oxybutynin Allergy Unknown Unknown Verified 03/06/22 17:35 Penicillins [PENICILLINS] Allergy Unknown UNKNOWN Verified 03/06/22 17:35 solifenacin [Vesicare] Allergy Unknown Unknown Verified 03/06/22 17:35 THERMONOL Allergy Unknown ANAPHYLATIC, Verified 03/06/22 17:35 BRUISING gluten [GLUTEN] AdvReac Intermediate STOMACH Verified 03/06/22 17:35 UPSET bee stings Allergy Unknown anaphylaxis Uncoded 01/19/22 11:38 DYE IVP Allergy Unknown anaphylaxis Uncoded 01/19/22 11:38 Review of Systems Review of Systems Constitutional : No Weight loss, No Fever, No Chills ENT/Mouth : No sore throat, No Rhinorrhea Eyes: No Swelling, No Redness Cardiovascular : No Chest Pain, No SOB, NoEdema Respiratory : No Cough, No Sputum, No Wheezing Gastrointestinal : no Nausea, no Vomiting, positive Diarrhea, positive abdominal Pain, No Hematochezia, No Melena Genitourinary : No Dysuria, No Urinary Frequency, No Hematuria, No Urgency Musculoskeletal : No joint pain, No Myalgias, No Joint Swelling Skin : No Skin Lesions, No rash Neuro : No Weakness, No Numbness, No Dizziness, No Headache Psych : No Anxiety/Panic, No Depression Heme/Lymph: No Bruising, No Lymphadenopathy Endocrine : No Polyuria, No Polydipsia All other systems reviewed and are negative. [facility] Past Medical History Attestation statement: The following information was validated with the patient. Medical History Asthma CHF (congestive heart failure) Diabetes mellitus with hyperglycemia Diabetes type 2, controlled Essential hypertension Fibromyalgia Hypertension Hypothyroid Non compliance w medication regimen Surgical History History of cholecystectomy History of left hip replacement History of thyroidectomy History of tooth extraction Social History Social History Housing: House Alcohol intake: never Patient Tobacco Use Status: Former Tobacco user e-Cigarette/Vaping Use: Never Used Second Hand Smoke Exposure: No Advance Directives: Yes Advance Directives on File: Yes Advance Directives Date on File: 11/02/21 service: No Current occupational status: retired Cognitive needs: Yes (cane) Hearing needs: No Vision needs: Yes (glasses) Physical Exam ED Vital Signs: Vital Signs - 24 hr 03/24/22 14:57 Temperature 98 F Pulse Rate 67 Respiratory Rate 18 Blood Pressure 115/38 L Pulse Oximetry 98 Oxygen Delivery Method Room Air BMI result Body Mass Index 35.4 Appearance: Alert. Oriented X3. No acute distress. Eyes: Pupils equal, round and reactive to light. ENT: Pharynx normal. Neck: Normal inspection. Neck supple. CVS: Normal heart rate and rhythm. Pulses normal. Respiratory: No respiratory distress. Breath sounds normal. Abdomen: Soft and moderate ttp in LLQ no rebound no mass felt Skin: Skin warm and dry. Normal skin color. Normal skin turgor. Extremities: trace pitting lower extremity edema. No calf ttp Neuro: Oriented X 3. No motor deficit. No sensory deficit. Course Course Course Narrative: signed out to Dr. De León MDM - Abdominal Pain MDM Narrative Medical decision making narrative: 81 yo female with hx of HTN, asthma, DM, hypothyroidism, fibromyalgia, CAD, sleep apnea here with LLQ pain and diarrhea. Brief chest pressure as well - at this time will obtain EKG and troponin seems atypical for ACS. CT scan of abdomen to evaluate for diverticulitis. IV morphine for pain. Dispo per results and findings. ECG Data Attestation: I personally reviewed and interpreted this ECG as follows: ECG interpretation date: 03/24/22 ECG interpretation time: 15:16 Interpretation: Rate: 67 Rhythm: NSR Hawks: left , LVH Normal P waves. Normal MALISSA. Normal QRS complex. ST T wave : nonsepcific no DECLAN qTC: normal prior studies: no acute ischemia The study has been interpreted contemporaneously by me. . Discharge Plan Discharge Clinical Impression: Abdominal pain Patient Disposition: Still a Patient Prescriptions: No Action (DME) blood-glucose meter [FreeStyle Lite Meter] Kit See Rx Instructions .Route Qty: 1 0RF Rx Instructions: Test once daily metformin 500 mg tablet extended release 24 hr 1,000 mg PO BID Qty: 120 1RF levothyroxine 75 mcg tablet 75 mcg PO DAILY Qty: 90 0RF levofloxacin 500 mg tablet 500 mg PO DAILY Qty: 6 0RF levofloxacin 500 mg tablet 500 mg PO DAILY Qty: 6 0RF atorvastatin 10 mg tablet 10 mg PO DAILY Qty: 90 0RF isosorbide mononitrate 60 mg tablet extended release 24 hr 60 mg PO DAILY Qty: 90 0RF losartan 50 mg tablet 50 mg PO DAILY Qty: 90 0RF nitroglycerin 0.4 mg tablet, sublingual 0.4 mg sublingual Q5M Qty: 30 0RF Rx Instructions: do not exceed 3 doses per episode (DME) FreeStyle Lite Strips Strip See Rx Instructions .Route Qty: 100 0RF Rx Instructions: Test once daily (DME) lancets [FreeStyle Lancets] 28 gauge misc See Rx Instructions .Route Qty: 100 0RF Rx Instructions: Test once daily
[2022-03-24] MEDS: ondansetron HCL 4 MG/2 ML VIAL IVPUSH (16:25)
[2022-03-24] MEDS: Morphine Sulfate 4 MG/ML CARTRIDGE 2 MG IVPUSH (16:25)
[2022-03-24 17:11] LABS: Basophils Absolute Auto 0.1 X10*3/uL (0.0-0.2); Basophils Percent Auto 0.6 % (0-2); Eosinophils Absolute Auto 0.2 X10*3/uL (0.0-0.4); Eosinophils Percent Auto 1.1 % (0-4); Hematocrit 33.9 % (37.0-47.0); Hemoglobin 11.2 g/dl (12.0-16.0); Imm Gran Pct Auto 0.7 % (0.0-0.4); Lymphocytes Absolute Auto 2.1 X10*3/uL (1.2-4.9); Lymphocytes Percent Auto 14.9 % (20-40); MANUAL DIFF FLAG NO; Mean Corpuscular Hemoglobin 28.4 pg (27.0-33.0); Mean Platelet Volume 9.3 fL (9.4-12.3); Monocytes Absolute Auto 0.9 X10*3/uL (0.1-1.2); Monocytes Percent Auto 6.2 % (2-11); Neutrophils Percent Auto 76.5 % (45-73); Platelet Count 322 X10*3/uL (160-400); Red Blood Count 3.94 X10*6/uL (4.20-5.50); Red Cell Distribution Width 13.4 % (11.0-16.0); White Blood Count 14.4 X10*3/uL (4.8-10.8)
[2022-03-24 17:30] LABS: COVID-19 Test Negative (Negative); IDNOW Serial# 16C4AD1C
[2022-03-24 17:41] LABS: Alanine Aminotransferase 10 U/L (0-31); Albumin Level 3.4 g/dL (3.5-5.0); Alkaline Phosphatase 74 U/L (39-117); Anion Gap 18 (12-20); Aspartate Amino Transferase 10 U/L (5-31); Bilirubin Direct 0.2 mg/dL (0.0-0.5); Bilirubin Total 0.2 mg/dL (0.0-1.0); Blood Urea Nitrogen 14 mg/dL (9-16); Calcium 8.9 mg/dL (8.4-10.2); Carbon Dioxide 21 mmol/L (22-29); Chloride 102 mmol/L (96-108); Creatinine Clr Calc Pharmacy 38.3; Estimated Glomerular Filt Rate 43; Glucose Random 280 mg/dL (60-115); Lipase 8 U/L (8-78); Magnesium 1.8 mg/dL (1.6-2.6); Potassium 4.4 mmol/L (3.3-5.1); Sodium 137 mmol/L (135-145); Total Protein 6.4 g/dL (6.5-8.0)
[2022-03-24 17:42] LABS: Lactic Acid 4.2 mmol/L (0.5-2.0)
[2022-03-24 17:45] LABS: Troponin-I High Sensitivity 5.3 ng/L (<3.5-17.0)
[2022-03-24] MEDS: 0.9 % Sodium Chloride 2,721.54 ML 2721.54 ML IV (18:02)
[2022-03-24] MEDS: cefTRIAXone sodium 1 GM in 0.9 % Sodium Chloride 50 ML IV (18:07)
[2022-03-24 18:09] VITALS: BP 134/48; PULSE 70; RESP 18; O2SAT 98
[2022-03-24 19:07] LABS: Reflex Lactate? Lactic Acid Added
--- NOTE | 2022-03-24 20:36 | PM.IMHP ---
History of Present Illness Date of Service: 03/24/22 Chief Complaint: Abd pain 81-year-old female with history of hypertension, hyperlipidemia, diabetes, CHF, hypothyroidism, fibromyalgia, asthma, history diverticulitis presented to the hospital today with a chief complaint abdominal pain. Patient reports that for past 1 day she has been abdominal pain more so in the left lower quadrant, severe, crampy in nature; followed by she has an explosive diarrhea-watery; denies any blood in the stool. Patient denies any nausea vomiting. Denies any fever chills cough. Denies any concerns for food poisoning. Denies any chest pain or palpitations. Review of all other systems is negative except mentioned above ER course: Per ER team patient noted to have left lower quadrant tenderness, no guarding no rigidity; CT scan showed sigmoid diverticulitis, no evidence of free air. Given ceftriaxone and Flagyl-patient tolerated ceftriaxone in the ER. Admitted for further management. [facility] Medical History Asthma CHF (congestive heart failure) Diabetes mellitus with hyperglycemia Diabetes type 2, controlled Essential hypertension Fibromyalgia Hypertension Hypothyroid Non compliance w medication regimen Surgical History History of cholecystectomy History of left hip replacement History of thyroidectomy History of tooth extraction Social History Housing: House Alcohol intake: never Patient Tobacco Use Status: Former Tobacco user e-Cigarette/Vaping Use: Never Used Second Hand Smoke Exposure: No Advance Directives: Yes Advance Directives on File: Yes Advance Directives Date on File: 11/02/21 service: No Current occupational status: retired Cognitive needs: Yes (cane) Hearing needs: No Vision needs: Yes (glasses) Meds Allergies Allergy/AdvReac Type Severity Reaction Status Date / Time insulin detemir Allergy Unknown BRUISES Verified 03/06/22 17:35 Iodinated Contrast Media Allergy Unknown UNKNOWN Verified 03/06/22 17:35 [IV CONTRAST] lisinopril [From ZESTRIL] Allergy Unknown COUGH Verified 03/06/22 17:35 metformin [METFORMIN] Allergy Unknown UNKNOWN Verified 03/06/22 17:35 metoprolol [METOPROLOL] Allergy Unknown SEVERE Verified 03/06/22 17:35 ANGINA oxybutynin Allergy Unknown Unknown Verified 03/06/22 17:35 Penicillins [PENICILLINS] Allergy Unknown UNKNOWN Verified 03/06/22 17:35 solifenacin [Vesicare] Allergy Unknown Unknown Verified 03/06/22 17:35 THERMONOL Allergy Unknown ANAPHYLATIC, Verified 03/06/22 17:35 BRUISING gluten [GLUTEN] AdvReac Intermediate STOMACH Verified 03/06/22 17:35 UPSET bee stings Allergy Unknown anaphylaxis Uncoded 01/19/22 11:38 DYE IVP Allergy Unknown anaphylaxis Uncoded 01/19/22 11:38 Active Medications: Current Medications Acetaminophen (Acetaminophen 325 Mg Tablet) 650 mg PO Q6H PRN PRN Reason: Pain, Mild (Pain Scale 1-3) Dextrose (Dextrose 50 % 25 Gm/50 Ml Syringe) 25 gm IVPUSH Q15M PRN; Protocol PRN Reason: per Hypoglycemia Standing Ord. Enoxaparin Sodium (Enoxaparin Sodium 40 Mg/0.4 Ml Syringe) 40 mg SUBCUT Q24H BRY Glucose (Glucose Gel 15 Gm Gel..Gram.) 15 gm PO Q15M PRN; Protocol PRN Reason: per Hypoglycemia Standing Ord. Ceftriaxone Sodium 1 gm/ (Sodium Chloride) 50 mls @ 100 mls/hr IV Q24H BRY Metronidazole (Flagyl) 500 mg in 100 mls @ 100 mls/hr IV Q8H BRY Sodium Chloride (Ns) 1,000 mls @ 100 mls/hr IVCONT .Q10H BRY Insulin Human Lispro (Insulin Lispro 100 Unit/Ml 3 Ml Vial) 0 unit SUBCUT QIDACHS BRY; Protocol Melatonin (Melatonin 3 Mg Tablet) 6 mg PO BEDTIME PRN PRN Reason: Insomnia Pharmacy Consult (Consult Rx Perform Med Rec) 1 each MISCELLANE ONCE STA Stop: 03/24/22 19:40 Senna (Sennosides 8.6 Mg Tablet) 17.2 mg PO BEDTIME PRN PRN Reason: Constipation Sodium Chloride (0.9 % Sodium Chloride Flush 3 Ml Syringe) 3 ml IVFLUSH QSHIFT BRY Physical Exam Vital Signs and Narrative: Vital Signs: Last Vital Signs Temp 98 F 03/24/22 14:57 Pulse 70 03/24/22 18:09 Resp 18 03/24/22 18:09 BP 134/48 L 03/24/22 18:09 Pulse Ox 98 03/24/22 18:09 O2 Del Method 03/24/22 18:09 BMI result Body Mass Index 35.4 Gen: Appears be in no acute distress HEENT: NCAT, Moist mucosa. Pulmonary: Vesicular breath sounds, fair air entry CVS: Normal S1-S2 Abdomen: BS+, Soft, mildly tender in the left lower quadrant; no guarding no rigidity Extremities: Warm well perfused Neuro: Alert and awake. Results Labs CBC and Chem 7: 03/24/22 16:57 03/24/22 16:57 Labs: Laboratory Results - last 24 hr 03/24/22 03/24/22 03/24/22 16:57 16:57 16:57 MCV 86.0 MCH 28.4 MCHC 33.0 RDW 13.4 Plt Count 322 D MPV 9.3 L Immature Gran % (Auto) 0.7 H Neut % (Auto) 76.5 H Lymph % (Auto) 14.9 L Benson % (Auto) 6.2 Eos % (Auto) 1.1 Baso % (Auto) 0.6 Lymph # (Auto) 2.1 Benson # (Auto) 0.9 Eos # (Auto) 0.2 Baso # (Auto) 0.1 Abs Immat Gran (auto) 0.10 H Absolute Neuts (auto) 11.0 H Absolute Nucleated RBC 0.000 Nucleated RBC % (auto) 0.0 Anion Gap 18 Estim Creat Clear Calc 38.3 Estimated GFR 43 Random Glucose 280 H Lactic Acid Calcium 8.9 Magnesium 1.8 Total Bilirubin 0.2 Direct Bilirubin 0.2 AST 10 ALT 10 Alkaline Phosphatase 74 Total Protein 6.4 L Albumin 3.4 L Lipase 8 COVID-19 ([facility]) Negative COVID-19 Clin Com See Note 03/24/22 16:57 MCV MCH MCHC RDW Plt Count MPV Immature Gran % (Auto) Neut % (Auto) Lymph % (Auto) Benson % (Auto) Eos % (Auto) Baso % (Auto) Lymph # (Auto) Benson # (Auto) Eos # (Auto) Baso # (Auto) Abs Immat Gran (auto) Absolute Neuts (auto) Absolute Nucleated RBC Nucleated RBC % (auto) Anion Gap Estim Creat Clear Calc Estimated GFR Random Glucose Lactic Acid 4.2 H* Calcium Magnesium Total Bilirubin Direct Bilirubin AST ALT Alkaline Phosphatase Total Protein Albumin Lipase COVID-19 ([facility]) COVID-19 Clin Com Imaging Radiologist's Impressions: Impressions Chest X-Ray 03/24/22 15:17 IMPRESSION: Chronic interstitial thickening and lateral left lower lobe opacities. Given persistency of the focal abnormalities in the left base, correlation with a chest CT is recommended to further assess and ensure the absence of underlying lesions, this could be performed in an elective setting. Abdomen/Pelvis CT 03/24/22 15:49 IMPRESSION: Severe diverticular disease of the distal colon and question mild sigmoid diverticulitis. Large umbilical and periumbilical hernias containing fat. Atrophic changes of the pancreas. Probable liver cysts. Fleischner guidelines were followed. Assessment and Plan (1) Diverticulitis: Status: Acute Plan 81-year-old female with history of hypertension, hyperlipidemia, diabetes, CAD, CHF, hypothyroidism, fibromyalgia, asthma, history diverticulitis presented to the hospital today with a chief complaint abdominal pain. Noted to have sigmoid diverticulitis. Admitted for further management. Sigmoid diverticulitis: Continue ceftriaxone/Flagyl. Patient tolerated ceftriaxone in the ER. Pain control NPO Gentle IV fluids CT abdomen showed severe diverticular disease with mild sigmoid diverticulitis; large umbilical on modesta umbilical hernias containing atrophy changes. Spoke to general surgery Dr. Santos Lactic acidosis: Likely in setting of dehydration. Patient also on metformin. Gentle IV fluids. Will continue to monitor. History of diabetes: Hold metformin. Insulin sliding scale. History of CHF: Currently euvolemic. Will continue to monitor. Judicious IV fluids. History of hypothyroidism: Continue home levothyroxine history of diabetes: Hold metformin. Insulin sliding scale. History of CAD: Continue home statin, Imdur DVT prophylaxis: Lovenox Code status: Full code Quality Stroke Does the patient have a stroke diagnosis?: No VTE Prior VTE?: No VTE Risk Level:: Medical - moderate - high VTE Device Contraindication: Treatment Not Indicated VTE Drug Contraindication: N/A - Med Ordered
[2022-03-24] MEDS: metroNIDAZOLE/NS 500 MG/100 ML PIGGYBACK 100 MG IV (20:49)
--- NOTE | 2022-03-24 21:04 | P.CONGS_ITS ---
History of Present Illness Consult details Consult date: 03/25/22 Reason for consult: abdominal pain Narrative: The patient is an 81-year-old woman admitted to the hospitalist service with sigmoid diverticulitis who is also noted to have an abdominal wall hernia at the umbilicus. She has a history of HTN, asthma, DM, hypothyroidism, fibromyalgia, CAD, sleep apnea. She noted acute onset of left lower quadrant abdominal pain yesterday morning and presented to the emergency department. At this time, the patient tolerated a sloppy Chan for lunch reports no abdominal pain and is anxious to be discharged. She reports a history of celiac in addition to type 2 diabetes that is not being managed with any provider at this point. We discussed her hemoglobin A1c of 9.6 and the inherent risks to poorly managed type 2 diabetes. She also notes that she does not completely abstain from gluten though she has a history of celiac and is aware that it increases her risk for cancer. As noted, the patient has improved since admission and is tolerating p.o.. She denies any significant abdominal pain and denies any pain from her umbilical hernia. Review of Systems Review of Systems: Yes all other systems are reviewed and are negative Constitutional: Constitutional: Reports as per HPI [facility] Past Medical History Medical History Asthma CHF (congestive heart failure) Diabetes mellitus with hyperglycemia Diabetes type 2, controlled Essential hypertension Fibromyalgia Hypertension Hypothyroid Non compliance w medication regimen Surgical History Surgical History History of cholecystectomy History of left hip replacement History of thyroidectomy History of tooth extraction Social History Social History Housing: House Alcohol intake: never Patient Tobacco Use Status: Never used Tobacco e-Cigarette/Vaping Use: Never Used Second Hand Smoke Exposure: No Use of substances other than those prescribed or required for medical reasons: No Advance Directives: Yes Advance Directives on File: Yes Advance Directives Date on File: 11/02/21 service: No Current occupational status: retired Cognitive needs: Yes (cane) Hearing needs: No Vision needs: Yes (glasses) Meds Allergies Allergy/AdvReac Type Severity Reaction Status Date / Time insulin detemir Allergy Unknown BRUISES Verified 03/06/22 17:35 Iodinated Contrast Media Allergy Unknown UNKNOWN Verified 03/06/22 17:35 [IV CONTRAST] lisinopril [From ZESTRIL] Allergy Unknown COUGH Verified 03/06/22 17:35 metformin [METFORMIN] Allergy Unknown UNKNOWN Verified 03/06/22 17:35 metoprolol [METOPROLOL] Allergy Unknown SEVERE Verified 03/06/22 17:35 ANGINA oxybutynin Allergy Unknown Unknown Verified 03/06/22 17:35 Penicillins [PENICILLINS] Allergy Unknown UNKNOWN Verified 03/06/22 17:35 solifenacin [Vesicare] Allergy Unknown Unknown Verified 03/06/22 17:35 THERMONOL Allergy Unknown ANAPHYLATIC, Verified 03/06/22 17:35 BRUISING gluten [GLUTEN] AdvReac Intermediate STOMACH Verified 03/06/22 17:35 UPSET bee stings Allergy Unknown anaphylaxis Uncoded 01/19/22 11:38 DYE IVP Allergy Unknown anaphylaxis Uncoded 01/19/22 11:38 Active Medications: Current Medications Acetaminophen (Acetaminophen 325 Mg Tablet) 650 mg PO Q6H PRN PRN Reason: Pain, Mild (Pain Scale 1-3) Dextrose (Dextrose 50 % 25 Gm/50 Ml Syringe) 25 gm IVPUSH Q15M PRN; Protocol PRN Reason: per Hypoglycemia Standing Ord. Enoxaparin Sodium (Enoxaparin Sodium 40 Mg/0.4 Ml Syringe) 40 mg SUBCUT Q24H BRY Glucose (Glucose Gel 15 Gm Gel..Gram.) 15 gm PO Q15M PRN; Protocol PRN Reason: per Hypoglycemia Standing Ord. Ceftriaxone Sodium 1 gm/ (Sodium Chloride) 50 mls @ 100 mls/hr IV Q24H [facility] Metronidazole (Flagyl) 500 mg in 100 mls @ 100 mls/hr IV Q8H [facility] Sodium Chloride (Ns) 1,000 mls @ 100 mls/hr IVCONT .Q10H [facility] Insulin Human Lispro (Insulin Lispro 100 Unit/Ml 3 Ml Vial) 0 unit SUBCUT QIDACHS [facility]; Protocol Melatonin (Melatonin 3 Mg Tablet) 6 mg PO BEDTIME PRN PRN Reason: Insomnia Pharmacy Consult (Consult Rx Perform Med Rec) 1 each MISCELLANE ONCE STA Stop: 03/24/22 19:40 Senna (Sennosides 8.6 Mg Tablet) 17.2 mg PO BEDTIME PRN PRN Reason: Constipation Sodium Chloride (0.9 % Sodium Chloride Flush 3 Ml Syringe) 3 ml IVFLUSH QSHIFT BRY Physical Exam Vital Signs: Vital Signs: Last Vital Signs Temp 98 F 03/24/22 14:57 Pulse 70 03/24/22 18:09 Resp 18 03/24/22 18:09 BP 134/48 L 03/24/22 18:09 Pulse Ox 98 03/24/22 18:09 O2 Del Method 03/24/22 18:09 BMI result Body Mass Index 35.4 The patient is non-toxic & in good spirits NC/AT, PERRLA, EOMI Mood, affect & judgment all appear appropriate Sclera anicteric conjunctiva pink and moist Oropharynx is clear with no aphthous ulcers, Mallampati class 4, mucous membranes moist Neck is supple with no masses, adenopathy or bruits Heart is regular, normal S1-S2 no rubs or murmurs Lungs are clear and equal anteriorly with no audible wheezing, rubs or dullness to percussion Abdomen is overweight with a nontender umbilical hernia. No HSM, rebound, rigidity, guarding, masses or bruits are present. The patient reports her left lower quadrant abdominal pain has resolved since admission. Rectal exam is deferred Skin has good turgor and is free of rashes Extremities free of cyanosis clubbing edema Results Labs Result diagrams: 03/25/22 09:55 03/25/22 09:55 Labs: Abnormal lab results 03/24/22 03/24/22 03/24/22 Range/Units 16:57 16:57 16:57 WBC 14.4 H (4.8-10.8) X10*3/uL RBC 3.94 L (4.20-5.50) X10*6/uL Hgb 11.2 L (12.0-16.0) g/dl Hct 33.9 L (37.0-47.0) % MPV 9.3 L (9.4-12.3) fL Immature Gran % (Auto) 0.7 H (0.0-0.4) % Neut % (Auto) 76.5 H (45-73) % Lymph % (Auto) 14.9 L (20-40) % Abs Immat Gran (auto) 0.10 H (0.00-0.03) X10*3/uL Absolute Neuts (auto) 11.0 H (2.0-8.3) x10*3/uL Carbon Dioxide 21 L (22-29) mmol/L Random Glucose 280 H (60-115) mg/dL Lactic Acid 4.2 H* (0.5-2.0) mmol/L Total Protein 6.4 L (6.5-8.0) g/dL Albumin 3.4 L (3.5-5.0) g/dL Short CBC 03/24/22 Range/Units 16:57 WBC 14.4 H (4.8-10.8) X10*3/uL Hgb 11.2 L (12.0-16.0) g/dl Hct 33.9 L (37.0-47.0) % Plt Count 322 D (160-400) X10*3/uL BMP 03/24/22 16:57 Sodium 137 Potassium 4.4 Chloride 102 Carbon Dioxide 21 L BUN 14 Creatinine 1.21 Calcium 8.9 Liver Function 03/24/22 Range/Units 16:57 Total Bilirubin 0.2 (0.0-1.0) mg/dL Direct Bilirubin 0.2 (0.0-0.5) mg/dL AST 10 (5-31) U/L ALT 10 (0-31) U/L Alkaline Phosphatase 74 (39-117) U/L Albumin 3.4 L (3.5-5.0) g/dL HbA1C 9.[address] scan report/results: report reviewed and image reviewed CT scan - pelvis: report reviewed and image reviewed Assessment and Plan (1) Diverticulitis: Status: Acute (2) Abdominal pain: Qualifiers: Abdominal location: left lower quadrant Qualified Code(s): R10.32 - Left lower quadrant pain Status: Acute (3) Hypertension: Status: Acute (4) Asthma: Status: Acute (5) Fibromyalgia: Status: Acute (6) Essential hypertension: Status: Acute (7) Diabetes type 2, controlled: Status: Acute (8) Sleep apnea: Status: Acute (9) Umbilical hernia: Status: Acute Plan Pt admitted for resuscitation & IV Abx Presumed sigmoid diverticulitis & diarrhea Bowel rest except meds/sips H2O Since admission at with IV hydration and antibiotics, the patient is improved and tolerating a diet. Given her reported history of celiac and poor compliance with a gluten free diet, her anemia could represent malignancy and she should be seen in outpatient follow-up by GI to workup her anemia and confirm the diagnosis of sigmoid diverticulitis. Surgically, I do not appreciate any acute pathology that requires intervention she has had this hernia for some number of years and it is not symptomatic and given her comorbidities, I would recommend continued observation. The importance of follow-up with her PCP given her poorly controlled type 2 diabetes was also reviewed. Thank you for asking for my opinion. From a surgical perspective, if she is medically improved and can be discharged, this is reasonable. Thank you for asking me to participate in her care. Procedures Date of Service Date of Service: 03/25/22
--- NOTE | 2022-03-24 21:12 | PM.SEPBOLA3 ---
Sepsis Bolus Exclusion Sepsis Bolus Exclusion Date of Occurrence: 03/24/22 This patient met severe sepsis criteria due to the following condition(s):: Lactate>=4mmol/L In my clinical judgement the administration of 30 ml/kg of crystalloid would be detrimental to this patient due to the patient's following conditions:: Concern for fluid overload Replace the 30 mls/kg with (*zero amount not acceptable): *Note: One of the escobedo must be documented Crystalloids amount given in mls: (rate must be at least 150cc/hr): 50
--- NOTE | 2022-03-24 21:15 | PC.NURSE ---
Fluids delayed due to previous fluids still running. New 20g IV established and fluids running faster now.
[2022-03-24 21:18] VITALS: BP 134/51; PULSE 68; RESP 15; O2SAT 93
[2022-03-24 21:49] LABS: Lactic Acid 3.2 mmol/L (0.5-2.0)
[2022-03-24 22:17] LABS: Glucose, Whole Blood 170 mg/dL (60-115)
[2022-03-24] MEDS: Insulin Lispro 100 UNIT/ML 3 ML VIAL SUBCUT (22:55)
[2022-03-24] MEDS: Enoxaparin Sodium 40 MG/0.4 ML SYRINGE SUBCUT (22:55)
[2022-03-24] MEDS: 0.9 % Sodium Chloride 1,000 ML 100 ML IVCONT (22:55)
[2022-03-24 23:13] LABS: Reflex Lactate? Lactic Acid Added
[2022-03-24 23:27] VITALS: BP 153/64; PULSE 64; RESP 12; TEMP 36.4; O2SAT 98
[2022-03-24 23:39] LABS: Appearance Urine Cloudy; Color Urine Dark Yellow; Glucose Urine UA >=1000 mg/dL (Negative); Leukocyte Esterase Urine Moderate (2+) (Negative); Nitrite Urine Negative (Negative); PH 5.5 (5.0-9.0); Specific Gravity - Urine 1.025 (1.005-1.025); UMIC TRIGGER UACC YES; Urine Blood Negative (Negative); Urine Ketones Trace mg/dL (Negative); Urine Protein 300 (3+) mg/dL (Neg-Trace)
[2022-03-24 23:52] LABS: Bacteria Urine 3+ (None Seen); Hyaline Casts Urine >20 /LPF (0-2); UACC Culture Trigger YES; WBC Urine 21-50 /HPF (0-5)
[2022-03-24 23:54] LABS: ~Lactic Acid-LAB USE ONLY 2.3 mmol/L (0.5-2.0)
[2022-03-25 01:36] LABS: Reflex Lactate? 2 Y
[2022-03-25 02:12] LABS: ~Lactic Acid-LAB USE ONLY 1.7 mmol/L (0.5-2.0)
[2022-03-25 05:01] VITALS: BP 157/58; PULSE 66; RESP 14; O2SAT 97
[2022-03-25] MEDS: metroNIDAZOLE/NS 500 MG/100 ML PIGGYBACK 100 MG IV ×3 (06:25→22:05)
[2022-03-25 07:29] VITALS: BP 179/68; PULSE 69; RESP 16; TEMP 36.5; O2SAT 99
[2022-03-25 07:33] LABS: Glucose, Whole Blood 173 mg/dL (60-115)
--- NOTE | 2022-03-25 07:37 | PC.NURSE ---
pt a/o x 3 no sob/wes noted skin pink warm dry speaks in full sentences. lungs cta. heart sound regular, abd soft n/t, bs + x 4 quads. pt poc 173 coverage to be given. pt is eating breakfast. pt is sitting up in chair states bed gives her post neck pain 7/ pt aware of plan of care.
[2022-03-25 07:43] LABS: Estimated Average Glucose 229 mg/dL; Hemoglobin A1c % 9.6 %
[2022-03-25 07:56] VITALS: BP 141/73; PULSE 87; RESP 15; TEMP 36.5; O2SAT 95
--- NOTE | 2022-03-25 08:00 | PC.NURSE ---
pt seen by dr. freedman, pt aware of plan of care.
--- NOTE | 2022-03-25 08:28 | PHA.MEDREC ---
Pharmacy Consult ? Medication Reconciliation Pharmacy has completed the medication reconciliation.
[2022-03-25] MEDS: Insulin Lispro 100 UNIT/ML 3 ML VIAL SUBCUT ×4 (09:04→23:46)
[2022-03-25] MEDS: 0.9 % Sodium Chloride Flush 3 ML SYRINGE IVFLUSH (09:04)
[2022-03-25 10:16] LABS: Hemoglobin 11.4 g/dl (12.0-16.0); Imm Gran Abs Auto 0.04 X10*3/uL (0.00-0.03); Imm Gran Pct Auto 0.4 % (0.0-0.4); MANUAL DIFF FLAG SCAN; Monocytes Absolute Auto 0.7 X10*3/uL (0.1-1.2); PLT CLUMP 1; SCAN SMEAR FLAG 1
[2022-03-25 10:17] LABS: Basophils Absolute Auto 0.1 X10*3/uL (0.0-0.2); Basophils Percent Auto 0.8 % (0-2); Eosinophils Absolute Auto 0.4 X10*3/uL (0.0-0.4); Eosinophils Percent Auto 3.8 % (0-4); Lymphocytes Absolute Auto 2.5 X10*3/uL (1.2-4.9); Mean Corpuscular HGB Conc 32.6 g/dl (31.0-35.0); Mean Corpuscular Hemoglobin 28.2 pg (27.0-33.0); Mean Corpuscular Volume 86.6 fL (80.0-98.0); Mean Platelet Volume 9.7 fL (9.4-12.3); Monocytes Percent Auto 6.6 % (2-11); Neutrophils Absolute Auto 6.7 x10*3/uL (2.0-8.3); Neutrophils Percent Auto 64.4 % (45-73); Red Blood Count 4.04 X10*6/uL (4.20-5.50); Red Cell Distribution Width 13.5 % (11.0-16.0)
[2022-03-25 10:18] LABS: Anion Gap 14 (12-20); Blood Urea Nitrogen 12 mg/dL (9-16); Calcium 8.5 mg/dL (8.4-10.2); Carbon Dioxide 24 mmol/L (22-29); Chloride 104 mmol/L (96-108); Creatinine Clr Calc Pharmacy 47.3; Estimated Glomerular Filt Rate 54; Glucose Random 282 mg/dL (60-115); Potassium 4.2 mmol/L (3.3-5.1); Sodium 138 mmol/L (135-145)
[2022-03-25 11:11] LABS: Platelet Count 276 X10*3/uL (160-400); White Blood Count 10.4 X10*3/uL (4.8-10.8)
[2022-03-25 11:12] LABS: SLIDE REVIEW VERIFIED
[2022-03-25] MEDS: metFORMIN HCl ER 500 MG TAB.ER.24H 1000 MG PO ×2 (11:23→22:05)
[2022-03-25 11:26] VITALS: BP 191/68; PULSE 71; RESP 10; TEMP 36.9; O2SAT 100
[2022-03-25 12:51] LABS: Glucose, Whole Blood 189 mg/dL (60-115)
[2022-03-25] MEDS: 0.9 % Sodium Chloride 1,000 ML 100 ML IVCONT (13:56)
--- NOTE | 2022-03-25 14:06 | HO.PM.IMPN ---
Subjective Subjective Date of Service: 03/26/22 Interval History: Seen in f/u for acute diverticulitis interval history: feels better, no abd pain Review of Systems no n/v, no abd pain Physical Exam Vital Signs: Vital Signs: Last Vital Signs Temp 98.4 F 03/25/22 11:26 Pulse 71 03/25/22 11:26 Resp 10 L 03/25/22 11:26 BP 191/68 H 03/25/22 11:26 Pulse Ox 100 03/25/22 11:26 O2 Del Method 03/25/22 11:26 BMI result Body Mass Index 35.4 Const: Other: General: AO X 3, no acute distress Resp: CTA bilateral CVS: S1,S2,RRR GI: +BS, NT, no distention Skin: No rash Neuro: motor grossly intact Psych: appropriate affect Objective Data Active Medications Acetaminophen (Acetaminophen 325 Mg Tablet) 650 mg PO Q6H PRN PRN Reason: Pain, Mild (Pain Scale 1-3) Atorvastatin Calcium (Atorvastatin Calcium 10 Mg Tablet) 10 mg PO DAILY [facility] Dextrose (Dextrose 50 % 25 Gm/50 Ml Syringe) 25 gm IVPUSH Q15M PRN; Protocol PRN Reason: per Hypoglycemia Standing Ord. Enoxaparin Sodium (Enoxaparin Sodium 40 Mg/0.4 Ml Syringe) 40 mg SUBCUT Q24H [facility] Last Admin: 03/24/22 22:55 Dose: 40 mg Documented By: SD Glucose (Glucose Gel 15 Gm Gel..Gram.) 15 gm PO Q15M PRN; Protocol PRN Reason: per Hypoglycemia Standing Ord. Ceftriaxone Sodium 1 gm/ (Sodium Chloride) 50 mls @ 100 mls/hr IV Q24H [facility] Metronidazole (Flagyl) 500 mg in 100 mls @ 100 mls/hr IV Q8H [facility] Last Admin: 03/25/22 13:54 Dose: 100 mls/hr Documented By: BARRERA Sodium Chloride (Ns) 1,000 mls @ 100 mls/hr IVCONT .Q10H [facility] Last Admin: 03/25/22 13:56 Dose: 100 mls/hr Documented By: BARRERA Insulin Human Lispro (Insulin Lispro 100 Unit/Ml 3 Ml Vial) 0 unit SUBCUT QIDACHS [facility]; Protocol Last Admin: 03/25/22 13:53 Dose: 2 unit Documented By: BARRERA Isosorbide Mononitrate (Isosorbide Mononitrate 60 Mg Tab.Er.24h) 60 mg PO DAILY [facility]; Protocol Levothyroxine Sodium (Levothyroxine Sodium 75 Mcg Tablet) 75 mcg PO DAILY [facility] Melatonin (Melatonin 3 Mg Tablet) 6 mg PO BEDTIME PRN PRN Reason: Insomnia Metformin HCl (Metformin Hcl Er 500 Mg Tab.Er.24h) 1,000 mg PO BID [facility] Last Admin: 03/25/22 11:23 Dose: 1,000 mg Documented By: BARRERA Nitroglycerin (Nitroglycerin 0.4 Mg Tab.Subl) 0.4 mg SUBLINGUAL Q5M PRN PRN Reason: Chest Pain Senna (Sennosides 8.6 Mg Tablet) 17.2 mg PO BEDTIME PRN PRN Reason: Constipation Sodium Chloride (0.9 % Sodium Chloride Flush 3 Ml Syringe) 3 ml IVFLUSH QSHIFT [facility] Last Admin: 03/25/22 09:04 Dose: 3 ml Documented By: BARRERA Sodium Chloride (0.9 % Sodium Chloride Flush 3 Ml Syringe) [facility] CBC & Chem 7: 03/25/22 09:55 03/25/22 09:55 Labs: Laboratory Results - last 24 hr 03/24/22 03/24/22 03/24/22 16:57 16:57 16:57 MCV 86.0 MCH 28.4 MCHC 33.0 RDW 13.4 Plt Count 322 D MPV 9.3 L Immature Gran % (Auto) 0.7 H Neut % (Auto) 76.5 H Lymph % (Auto) 14.9 L [place] % (Auto) 6.2 Eos % (Auto) 1.1 Baso % (Auto) 0.6 Lymph # (Auto) 2.1 [place] # (Auto) 0.9 Eos # (Auto) 0.2 Baso # (Auto) 0.1 Abs Immat Gran (auto) 0.10 H Absolute Neuts (auto) 11.0 H Absolute Nucleated RBC 0.000 Nucleated RBC % (auto) 0.0 Smear Tech's Comments Anion Gap 18 Estim Creat Clear Calc 38.3 Estimated GFR 43 POC Glucose Random Glucose 280 H Estimat Average Glucose Hemoglobin A1c % Lactic Acid Lactic Acid F/U @ 2Hr Lactic Acid F/U @ 4Hr Calcium 8.9 Magnesium 1.8 Total Bilirubin 0.2 Direct Bilirubin 0.2 AST 10 ALT 10 Alkaline Phosphatase 74 Total Protein 6.4 L Albumin 3.4 L Lipase 8 Urine Color Urine Appearance Urine pH Ur Specific [place] Urine Protein Urine Glucose (UA) Urine Ketones Urine Blood Urine Nitrite Ur Leukocyte Esterase Urine RBC Urine WBC Ur Squamous Epith Cells Urine Bacteria Hyaline Casts Urine Yeast COVID-19 ([facility]) Negative COVID-19 Clin Com See Note 03/24/22 03/24/22 03/24/22 16:57 21:05 22:12 MCV MCH MCHC RDW Plt Count MPV Immature Gran % (Auto) Neut % (Auto) Lymph % (Auto) [place] % (Auto) Eos % (Auto) Baso % (Auto) Lymph # (Auto) [place] # (Auto) Eos # (Auto) Baso # (Auto) Abs Immat Gran (auto) Absolute Neuts (auto) Absolute Nucleated RBC Nucleated RBC % (auto) Smear Tech's Comments Anion Gap Estim Creat Clear Calc Estimated GFR POC Glucose 170 H Random Glucose Estimat Average Glucose Hemoglobin A1c % Lactic Acid 4.2 H* 3.2 H* Lactic Acid F/U @ 2Hr Lactic Acid F/U @ 4Hr Calcium Magnesium Total Bilirubin Direct Bilirubin AST ALT Alkaline Phosphatase Total Protein Albumin Lipase Urine Color Urine Appearance Urine pH Ur Specific [place] Urine Protein Urine Glucose (UA) Urine Ketones Urine Blood Urine Nitrite Ur Leukocyte Esterase Urine RBC Urine WBC Ur Squamous Epith Cells Urine Bacteria Hyaline Casts Urine Yeast COVID-19 ([facility]) COVID-19 Clin Com 03/24/22 03/24/22 03/24/22 23:31 23:31 23:31 MCV MCH MCHC RDW Plt Count MPV Immature Gran % (Auto) Neut % (Auto) Lymph % (Auto) [place] % (Auto) Eos % (Auto) Baso % (Auto) Lymph # (Auto) [place] # (Auto) Eos # (Auto) Baso # (Auto) Abs Immat Gran (auto) Absolute Neuts (auto) Absolute Nucleated RBC Nucleated RBC % (auto) Smear Tech's Comments Anion Gap Estim Creat Clear Calc Estimated GFR POC Glucose Random Glucose Estimat Average Glucose 229 Hemoglobin A1c % 9.6 Lactic Acid Lactic Acid F/U @ 2Hr 2.3 H* Lactic Acid F/U @ 4Hr Calcium Magnesium Total Bilirubin Direct Bilirubin AST ALT Alkaline Phosphatase Total Protein Albumin Lipase Urine Color Dark Yellow Urine Appearance Cloudy Urine pH 5.5 Ur Specific [place] 1.025 Urine Protein 300 (3+) H Urine Glucose (UA) >=1000 H Urine Ketones Trace Urine Blood Negative Urine Nitrite Negative Ur Leukocyte Esterase Moderate (2+) H Urine RBC 11-20 H Urine WBC 21-50 H Ur Squamous Epith Cells 11-20 Urine Bacteria 3+ Hyaline Casts >20 Urine Yeast Present COVID-19 ([facility]) COVID-19 Clin Com 03/25/22 03/25/22 03/25/22 01:53 07:29 09:55 MCV 86.6 MCH 28.2 MCHC 32.6 RDW 13.5 Plt Count 276 MPV 9.7 Immature Gran % (Auto) 0.4 Neut % (Auto) 64.4 Lymph % (Auto) 24.0 [place] % (Auto) 6.6 Eos % (Auto) 3.8 Baso % (Auto) 0.8 Lymph # (Auto) 2.5 [place] # (Auto) 0.7 Eos # (Auto) 0.4 Baso # (Auto) 0.1 Abs Immat Gran (auto) 0.04 H Absolute Neuts (auto) 6.7 Absolute Nucleated RBC 0.000 Nucleated RBC % (auto) 0.0 Smear Tech's Comments VERIFIED Anion Gap Estim Creat Clear Calc Estimated GFR POC Glucose 173 H Random Glucose Estimat Average Glucose Hemoglobin A1c % Lactic Acid Lactic Acid F/U @ 2Hr Lactic Acid F/U @ 4Hr 1.7 Calcium Magnesium Total Bilirubin Direct Bilirubin AST ALT Alkaline Phosphatase Total Protein Albumin Lipase Urine Color Urine Appearance Urine pH Ur Specific [place] Urine Protein Urine Glucose (UA) Urine Ketones Urine Blood Urine Nitrite Ur Leukocyte Esterase Urine RBC Urine WBC Ur Squamous Epith Cells Urine Bacteria Hyaline Casts Urine Yeast COVID-19 ([facility]) COVID-19 Clin Com 03/25/22 03/25/22 09:55 12:45 MCV MCH MCHC RDW Plt Count MPV Immature Gran % (Auto) Neut % (Auto) Lymph % (Auto) [place] % (Auto) Eos % (Auto) Baso % (Auto) Lymph # (Auto) [place] # (Auto) Eos # (Auto) Baso # (Auto) Abs Immat Gran (auto) Absolute Neuts (auto) Absolute Nucleated RBC Nucleated RBC % (auto) Smear Tech's Comments Anion Gap 14 Estim Creat Clear Calc 47.3 Estimated GFR 54 POC Glucose 189 H Random Glucose 282 H Estimat Average Glucose Hemoglobin A1c % Lactic Acid Lactic Acid F/U @ 2Hr Lactic Acid F/U @ 4Hr Calcium 8.5 Magnesium Total Bilirubin Direct Bilirubin AST ALT Alkaline Phosphatase Total Protein Albumin Lipase Urine Color Urine Appearance Urine pH Ur Specific [place] Urine Protein Urine Glucose (UA) Urine Ketones Urine Blood Urine Nitrite Ur Leukocyte Esterase Urine RBC Urine WBC Ur Squamous Epith Cells Urine Bacteria Hyaline Casts Urine Yeast COVID-19 ([facility]) COVID-19 Clin Com Assessment and Plan (1) Diverticulitis: Status: Acute Plan 81-year-old female with history of hypertension, hyperlipidemia, diabetes, CAD, CHF, hypothyroidism, fibromyalgia, asthma, history diverticulitis presented to the hospital today with a chief complaint abdominal pain.? Noted to have sigmoid diverticulitis.? Admitted for further management.? Sigmoid diverticulitis: Continue ceftriaxone/Flagyl at dc change to ceftin and flagyl Pain control advance diet Gentle IV fluids CT abdomen showed severe diverticular disease with mild sigmoid diverticulitis; large umbilical on [place] umbilical hernias containing atrophy changes.? Dr. Santos evaluated the patient and no intervention Lactic acidosis:? Likely in setting of dehydration.? Patient also on metformin.? Gentle IV fluids.? Will continue to monitor. History of diabetes: Hold metformin.? Insulin sliding scale. History of CHF:? Currently euvolemic.? Will continue to monitor.? Judicious IV fluids.? History of hypothyroidism: Continue home levothyroxine history of diabetes:? Hold metformin.? Insulin sliding scale. History of CAD:? Continue home statin, Imdur DVT prophylaxis:? Lovenox Code status:? Full code need for inaptient: Acute diverticulutis with lactic acidosis, needing IVF and IV Abx Quality Stroke Does the patient have a stroke diagnosis?: No VTE Prior VTE?: No VTE Risk Level:: Medical - moderate - high VTE Device Contraindication: Treatment Not Indicated VTE Drug Contraindication: N/A - Med Ordered
--- NOTE | 2022-03-25 14:16 | PC.NURSE ---
pt seen by dr. goel, pt aware of plan of care.
[2022-03-25 14:51] VITALS: BP 178/68; PULSE 71; RESP 16; TEMP 36.9; O2SAT 98
--- NOTE | 2022-03-25 15:00 | PC.NURSE ---
vijaya morse ([facility], ) states that if the pt is going to be d/c'd home to plz call him for d/c home.
--- NOTE | 2022-03-25 15:05 | PC.NURSE ---
pt spoke with her hcp (vijaya morse, ) at length on [facility] cellphone.
--- NOTE | 2022-03-25 16:11 | PC.NURSE ---
Patient crying does not want to stay in the hospital Dr. Haro notified.
[2022-03-25 16:43] LABS: Glucose, Whole Blood 185 mg/dL (60-115)
[2022-03-25] MEDS: cefTRIAXone sodium 1 GM in 0.9 % Sodium Chloride 50 ML IV (18:18)
[2022-03-25] MEDS: Enoxaparin Sodium 40 MG/0.4 ML SYRINGE SUBCUT (22:05)
[2022-03-25 22:16] LABS: Glucose, Whole Blood 171 mg/dL (60-115)
[2022-03-26] VITALS: BP 150/55; PULSE 62; RESP 22; TEMP 36.4; O2SAT 97
[2022-03-26] MEDS: 0.9 % Sodium Chloride 1,000 ML 100 ML IVCONT (00:50)
[2022-03-26 06:00] VITALS: BP 214/97; PULSE 74; RESP 16; TEMP 36.6; O2SAT 99
[2022-03-26] MEDS: metroNIDAZOLE/NS 500 MG/100 ML PIGGYBACK 100 MG IV (06:29)
[2022-03-26] MEDS: Isosorbide Mononitrate 60 MG TAB.ER.24H PO (06:30)
--- NOTE | 2022-03-26 06:31 | PC.NURSE ---
Addendum entered by Marlene Almeida RN 03/26/22 06:35: Sal texted back. No new orders. recheck BP 1 hour after imdur adm Original Note: Dr. Huang paged r/t BP. awaiting callback
[2022-03-26 07:29] VITALS: BP 175/69; PULSE 66; RESP 14; TEMP 36.7; O2SAT 96
[2022-03-26 07:38] LABS: Glucose, Whole Blood 171 mg/dL (60-115)
[2022-03-26 08:39] VITALS: BP 144/57; PULSE 59; RESP 18; TEMP 36.1; O2SAT 96
[2022-03-26 09:56] LABS: Lactic Acid 3.2 mmol/L (0.5-2.0)
[2022-03-26] MEDS: Levothyroxine Sodium 75 MCG TABLET PO (10:02)
[2022-03-26] MEDS: Atorvastatin Calcium 10 MG TABLET PO (10:02)
--- NOTE | 2022-03-26 10:29 | MHC.CM.PN ---
IMM 03/26/22, EMR REVIEWED, PT ADMITTED W/ACUTE DIVERTICULITIS, CM MET W/PT WHO REPORTS SHE LIVES ALONE W/HER CAT, PT REPORTS SHE USES A CANE, HAS A WALKER AND ROLLATER AND GRAB BARS IN [place], PT DENIES HOME SERVICES AND HAS DECLINES [facility] D/T HAVING CELIAC'S DISEASE AND BEING CONCERNED IF THEY COULD PROVIDE THE CORRECT DIET AND PT ALSO REPORTING SHE WAS UNABLE TO AFFORD THE COST FOR A CANE WEIGHER, PT VERIFIES PCP IS ASAD EVANGELISTA, PFIZER X2 AND MODERNA X2, HCP/MOLST ON FILE FROM PREVIOUS ADMIT. PT REPORTS SHE MAY NEED ASSISTANCE W/TRANSPORTATION AND CM SPOKE W/PT'S FRIEND PENELOPE [phone] WHEN PT HANDED OFF PHONE TO CM, PENELOPE REPORTS HE WILL ARRANGE A RIDE FOR PT AND DOES NOT WANT HER TO TAKE A CAB AND WOULD LIKE CM TO CALL HIM BACK ONCE D/C IS CONFIRMED. PER HOSPITALIST PT WILL D/C ONCE LACTIC ACID RESULTS ARE IN. D/C PLAN: HOME TODAY W/FRIEND FOR TRANSPORT.
[2022-03-26] MEDS: metFORMIN HCl ER 500 MG TAB.ER.24H 1000 MG PO (11:02)
[2022-03-26 11:37] LABS: Reflex Lactate? Lactic Acid Added
--- NOTE | 2022-03-26 14:29 | PM.DS ---
DS: Providers Provider Date of Service: 03/26/22 Date of admission: 03/24/22 21:46 Primary care physician: Jeffery Baez MD Consults: 03/24/22 20:40 Consult to General Surgery Routine Consulting Provider: Durga Cadet Reason for consultation: sigmoid diverticulitis; atrophic pancreas; DS: Diagnosis Discharge Diagnosis (1) Diverticulitis: Status: Acute (2) Abdominal pain: Status: Resolved DS: Summary Hospital Course Hospital Course: Chief Complaint: Abd pain 81-year-old female with history of hypertension, hyperlipidemia, diabetes, CHF, hypothyroidism, fibromyalgia, asthma, history diverticulitis presented to the hospital today with a chief complaint abdominal pain.? Patient reports that for past 1 day she has been abdominal pain more so in the left lower quadrant, severe, crampy in nature; followed by she has an explosive diarrhea-watery; denies any blood in the stool.? Patient denies any nausea vomiting.? Denies any fever chills cough.? Denies any concerns for food poisoning.? Denies any chest pain or palpitations.? Review of all other systems is negative except mentioned above ER course: Per ER team patient noted to have left lower quadrant tenderness, no guarding no rigidity; CT scan showed sigmoid diverticulitis, no evidence of free air.? Given ceftriaxone and Flagyl-patient tolerated ceftriaxone in the ER.? Admitted for further management. Hospital course:patient was admitted and started on IV antibiotics and IV fluid, was evaluated by surgery with no indication for surgery. She improved rather rapidly and by the next day was doing well without pain, WBC at that point had return to normal, her diet was advanced and at this point is tolerating regular diet and wish to go home. Will discharge home with Oral Ceftin and metronidazole and to follow up with PCP in a week. To resume home meds Time Spent with Patient Time attestation: Total time spent providing and/or coordinating discharge services: Discharge coordination time: Greater than 30 minutes Quality: Safe Use of Opioids Does Pt have an Active Cancer Diagnosis on the Problem List?: No Quality: Stroke Does the patient have a stroke diagnosis?: No Physical Exam Vital Signs: Vital Signs: Selected Entries 03/26/22 08:39 Temperature 97.0 F Pulse Rate 59 Respiratory Rate 18 Blood Pressure 144/57 H Pulse Oximetry 96 Oxygen Delivery Me thod Room Air Const: Other: General: AO X 3, no acute distress Resp: CTA bilateral CVS: S1,S2,RRR GI: +BS, NT, no distention Skin: No rash Neuro: motor grossly intact Psych: appropriate affect DS: Data Data Completed and Pending Labs on day of discharge: Laboratory Results - last 24 hr 03/24/22 03/24/22 03/24/22 16:57 16:57 16:57 WBC 14.4 H RBC 3.94 L Hgb 11.2 L Hct 33.9 L MCV 86.0 MCH 28.4 MCHC 33.0 RDW 13.4 Plt Count 322 D MPV 9.3 L Immature Gran % (Auto) 0.7 H Neut % (Auto) 76.5 H Lymph % (Auto) 14.9 L [place] % (Auto) 6.2 Eos % (Auto) 1.1 Baso % (Auto) 0.6 Lymph # (Auto) 2.1 [place] # (Auto) 0.9 Eos # (Auto) 0.2 Baso # (Auto) 0.1 Abs Immat Gran (auto) 0.10 H Absolute Neuts (auto) 11.0 H Absolute Nucleated RBC 0.000 Nucleated RBC % (auto) 0.0 Smear Tech's Comments Sodium 137 Potassium 4.4 Chloride 102 Carbon Dioxide 21 L Anion Gap 18 BUN 14 Creatinine 1.21 Estim Creat Clear Calc 38.3 Estimated GFR 43 POC Glucose Random Glucose 280 H Estimat Average Glucose Hemoglobin A1c % Lactic Acid Lactic Acid F/U @ 2Hr Lactic Acid F/U @ 4Hr Calcium 8.9 Magnesium 1.8 Total Bilirubin 0.2 Direct Bilirubin 0.2 AST 10 ALT 10 Alkaline Phosphatase 74 Troponin I High Sens Total Protein 6.4 L Albumin 3.4 L Lipase 8 Urine Color Urine Appearance Urine pH Ur Specific [place] Urine Protein Urine Glucose (UA) Urine Ketones Urine Blood Urine Nitrite Ur Leukocyte Esterase Urine RBC Urine WBC Ur Squamous Epith Cells Urine Bacteria Hyaline Casts Urine Yeast COVID-19 ([facility]) Negative COVID-19 Clin Com See Note 03/24/22 03/24/22 03/24/22 16:57 16:57 21:05 WBC RBC Hgb Hct MCV MCH MCHC RDW Plt Count MPV Immature Gran % (Auto) Neut % (Auto) Lymph % (Auto) [place] % (Auto) Eos % (Auto) Baso % (Auto) Lymph # (Auto) [place] # (Auto) Eos # (Auto) Baso # (Auto) Abs Immat Gran (auto) Absolute Neuts (auto) Absolute Nucleated RBC Nucleated RBC % (auto) Smear Tech's Comments Sodium Potassium Chloride Carbon Dioxide Anion Gap BUN Creatinine Estim Creat Clear Calc Estimated GFR POC Glucose Random Glucose Estimat Average Glucose Hemoglobin A1c % Lactic Acid 4.2 H* 3.2 H* Lactic Acid F/U @ 2Hr Lactic Acid F/U @ 4Hr Calcium Magnesium Total Bilirubin Direct Bilirubin AST ALT Alkaline Phosphatase Troponin I High Sens 5.3 D Total Protein Albumin Lipase Urine Color Urine Appearance Urine pH Ur Specific [place] Urine Protein Urine Glucose (UA) Urine Ketones Urine Blood Urine Nitrite Ur Leukocyte Esterase Urine RBC Urine WBC Ur Squamous Epith Cells Urine Bacteria Hyaline Casts Urine Yeast COVID-19 ([facility]) COVID-19 ProtoExchange 03/24/22 03/24/22 03/24/22 22:12 23:31 23:31 WBC RBC Hgb Hct MCV MCH MCHC RDW Plt Count MPV Immature Gran % (Auto) Neut % (Auto) Lymph % (Auto) [place] % (Auto) Eos % (Auto) Baso % (Auto) Lymph # (Auto) [place] # (Auto) Eos # (Auto) Baso # (Auto) Abs Immat Gran (auto) Absolute Neuts (auto) Absolute Nucleated RBC Nucleated RBC % (auto) Smear Tech's Comments Sodium Potassium Chloride Carbon Dioxide Anion Gap BUN Creatinine Estim Creat Clear Calc Estimated GFR POC Glucose 170 H Random Glucose Estimat Average Glucose 229 Hemoglobin A1c % 9.6 Lactic Acid Lactic Acid F/U @ 2Hr 2.3 H* Lactic Acid F/U @ 4Hr Calcium Magnesium Total Bilirubin Direct Bilirubin AST ALT Alkaline Phosphatase Troponin I High Sens Total Protein Albumin Lipase Urine Color Urine Appearance Urine pH Ur Specific [place] Urine Protein Urine Glucose (UA) Urine Ketones Urine Blood Urine Nitrite Ur Leukocyte Esterase Urine RBC Urine WBC Ur Squamous Epith Cells Urine Bacteria Hyaline Casts Urine Yeast COVID-19 ([facility]) COVID-19 ProtoExchange 03/24/22 03/25/22 03/25/22 23:31 01:53 07:29 WBC RBC Hgb Hct MCV MCH MCHC RDW Plt Count MPV Immature Gran % (Auto) Neut % (Auto) Lymph % (Auto) [place] % (Auto) Eos % (Auto) Baso % (Auto) Lymph # (Auto) [place] # (Auto) Eos # (Auto) Baso # (Auto) Abs Immat Gran (auto) Absolute Neuts (auto) Absolute Nucleated RBC Nucleated RBC % (auto) Smear Tech's Comments Sodium Potassium Chloride Carbon Dioxide Anion Gap BUN Creatinine Estim Creat Clear Calc Estimated GFR POC Glucose 173 H Random Glucose Estimat Average Glucose Hemoglobin A1c % Lactic Acid Lactic Acid F/U @ 2Hr Lactic Acid F/U @ 4Hr 1.7 Calcium Magnesium Total Bilirubin Direct Bilirubin AST ALT Alkaline Phosphatase Troponin I High Sens Total Protein Albumin Lipase Urine Color Dark Yellow Urine Appearance Cloudy Urine pH 5.5 Ur Specific [place] 1.025 Urine Protein 300 (3+) H Urine Glucose (UA) >=1000 H Urine Ketones Trace Urine Blood Negative Urine Nitrite Negative Ur Leukocyte Esterase Moderate (2+) H Urine RBC 11-20 H Urine WBC 21-50 H Ur Squamous Epith Cells 11-20 Urine Bacteria 3+ Hyaline Casts >20 Urine Yeast Present COVID-19 ([facility]) COVID-19 Clin Com 03/25/22 03/25/22 03/25/22 09:55 09:55 12:45 WBC 10.4 RBC 4.04 L Hgb 11.4 L Hct 35.0 L MCV 86.6 MCH 28.2 MCHC 32.6 RDW 13.5 Plt Count 276 MPV 9.7 Immature Gran % (Auto) 0.4 Neut % (Auto) 64.4 Lymph % (Auto) 24.0 [place] % (Auto) 6.6 Eos % (Auto) 3.8 Baso % (Auto) 0.8 Lymph # (Auto) 2.5 [place] # (Auto) 0.7 Eos # (Auto) 0.4 Baso # (Auto) 0.1 Abs Immat Gran (auto) 0.04 H Absolute Neuts (auto) 6.7 Absolute Nucleated RBC 0.000 Nucleated RBC % (auto) 0.0 Smear Tech's Comments VERIFIED Sodium 138 Potassium 4.2 Chloride 104 Carbon Dioxide 24 Anion Gap 14 BUN 12 Creatinine 0.98 Estim Creat Clear Calc 47.3 Estimated GFR 54 POC Glucose 189 H Random Glucose 282 H Estimat Average Glucose Hemoglobin A1c % Lactic Acid Lactic Acid F/U @ 2Hr Lactic Acid F/U @ 4Hr Calcium 8.5 Magnesium Total Bilirubin Direct Bilirubin AST ALT Alkaline Phosphatase Troponin I High Sens Total Protein Albumin Lipase Urine Color Urine Appearance Urine pH Ur Specific [place] Urine Protein Urine Glucose (UA) Urine Ketones Urine Blood Urine Nitrite Ur Leukocyte Esterase Urine RBC Urine WBC Ur Squamous Epith Cells Urine Bacteria Hyaline Casts Urine Yeast COVID-19 ([facility]) COVID-19 Clin Com Discharge Plan Discharge Anticipated Discharge Date/Time: 03/26/22 08:51 Patient Disposition: Home, Self-Care Discharge Diagnosis: Acute diverticulitis Referrals: Jeffery Baez MD [Primary Care Provider] - 1 Week Discharge Medications: New metronidazole 500 mg tablet 500 mg PO BID Qty: 14 0RF glipizide 5 mg tablet 2.5 mg PO BID Qty: 60 0RF Continued (DME) blood-glucose meter [FreeStyle Lite Meter] Kit See Rx Instructions .Route Qty: 1 0RF Rx Instructions: Test once daily levothyroxine 75 mcg tablet 75 mcg PO DAILY Qty: 90 0RF atorvastatin 10 mg tablet 10 mg PO DAILY Qty: 90 0RF (DME) FreeStyle Lite Strips Strip See Rx Instructions .Route Qty: 100 0RF Rx Instructions: Test once daily (DME) lancets [FreeStyle Lancets] 28 gauge misc See Rx Instructions .Route Qty: 100 0RF Rx Instructions: Test once daily Discontinued metformin 500 mg tablet extended release 24 hr 1,000 mg PO BID Qty: 120 1RF No Action sulfamethoxazole-trimethoprim [Bactrim DS] 800-160 mg tablet 1 tab PO BID 5 Days Qty: 10 0RF losartan 50 mg tablet 50 mg PO DAILY isosorbide mononitrate 60 mg tablet extended release 24 hr 60 mg PO DAILY Discharge Orders: Discharge Order (Routine); Ordered 03/26/22 Ordered By: Dony Haro Diet: Diabetic diet Activity on Discharge: As tolerated Stand Alone Forms: Patient Portal Discharge page Care Plan Goals: full recovery from diverticulitis Health Concerns: diverticulitis Plan of Treatment: take Flagyl and Ceftin as directed and follow up with your Doctor in a week due to lactic acidosis, metformin is been discontinued and replaced with glipizide 2.5 mg twice and to continue to check sugars as before Assessment: as above Discharge Date/Time: 03/26/22 11:59
== END 2022-03-26 11:59 | disposition home or self-care (01) | DRG 392 ==
LOC: HO.ED 18:11 → HO.EDOVER 03-25 10:14
PROVIDERS: Emergency Medicine; Hospitalist; Surgery; Admitting Provider Internal Medicine; Emergency Provider Emergency Medicine Emergency Medical Services; PCP Student in an Organized Health Care Education/Training Program; Visit Provider Internal Medicine
DX: K57.32 Diverticulitis of large intestine without perforation or abscess without bleeding (principal); J45.909 Unspecified asthma, uncomplicated; E03.9 Hypothyroidism, unspecified; I25.10 Atherosclerotic heart disease of native coronary artery without angina pectoris; E11.9 Type 2 diabetes mellitus without complications; I11.0 Hypertensive heart disease with heart failure; I50.9 Heart failure, unspecified; E78.5 Hyperlipidemia, unspecified; M79.7 Fibromyalgia; K42.9 Umbilical hernia without obstruction or gangrene; Z20.822 Contact with and (suspected) exposure to COVID-19; Z96.642 Presence of left artificial hip joint; Z91.041 Radiographic dye allergy status; Z91.030 Bee allergy status; Z88.0 Allergy status to penicillin; Z88.8 Allergy status to other drugs, medicaments and biological substances; Z79.84 Long term (current) use of oral hypoglycemic drugs; Z79.890 Hormone replacement therapy; Z79.899 Other long term (current) drug therapy
CPT/HCPCS: 36415; 71045; 74176; 80048; 80076; 81001; 82947; 83036; 83605; 83690; 83735; 84484; 85025; 87040; 87086; 87635; 93005; 99285; J0696; J1650; J2270; J2405

== ENCOUNTER 2022-04-27 15:26 | Outpatient (REF) | payer MEDICARE, SELFPAY ==
[2022-04-27 16:37] LABS: Hematocrit 36.1 % (37.0-47.0); Hemoglobin 12.1 g/dl (12.0-16.0); Mean Corpuscular HGB Conc 33.5 g/dl (31.0-35.0); Mean Corpuscular Hemoglobin 28.5 pg (27.0-33.0); Mean Corpuscular Volume 85.1 fL (80.0-98.0); Mean Platelet Volume 9.3 fL (9.4-12.3); Platelet Count 307 X10*3/uL (160-400); Red Blood Count 4.24 X10*6/uL (4.20-5.50); Red Cell Distribution Width 12.9 % (11.0-16.0); White Blood Count 12.8 X10*3/uL (4.8-10.8)
[2022-04-27 17:09] LABS: Alanine Aminotransferase 9 U/L (0-31); Albumin Level 3.8 g/dL (3.5-5.0); Alkaline Phosphatase 79 U/L (39-117); Anion Gap 16 (12-20); Aspartate Amino Transferase 13 U/L (5-31); Bilirubin Direct 0.4 mg/dL (0.0-0.5); Bilirubin Total 0.8 mg/dL (0.0-1.0); Blood Urea Nitrogen 12 mg/dL (9-16); Carbon Dioxide 25 mmol/L (22-29); Chloride 101 mmol/L (96-108); Cholesterol 141 mg/dL; Estimated Glomerular Filt Rate > 60; Glucose Random 132 mg/dL (60-115); HDL Cholesterol 34 mg/dL; LDL Cholesterol Calculated 83 mg/dl; Potassium 4.1 mmol/L (3.3-5.1); Sodium 138 mmol/L (135-145); Total Protein 7.3 g/dL (6.5-8.0); Triglycerides 123 mg/dL
[2022-04-27 17:19] LABS: Thyroid Stimulating Hormone 0.23 uIU/mL (0.32-4.0)
== END 2022-04-27 15:27 | disposition home or self-care (01) ==
LOC: HO.LAB 15:26
PROVIDERS: PCP Internal Medicine; Visit Provider Internal Medicine
DX: E11.9 Type 2 diabetes mellitus without complications (principal)
CPT/HCPCS: 36415; 80048; 80061; 80076; 84443; 85027

== ENCOUNTER 2022-09-13 06:22 | Emergency (ER) | payer MEDICARE, SELFPAY ==
--- NOTE | ~2022-09-13 | XR_ITS ---
EXAMINATION: XR LUMBOSACRAL SPINE CLINICAL INFORMATION: Back pain COMPARISON: November 2019. TECHNIQUE: Three views of the lumbosacral spine. FINDINGS: Wedge compression deformity again observed at L1 overall not appearing appreciably changed since November 2019. Anterolisthesis L4-L5, not appearing significantly changed. Degenerative disc space narrowing seen eccentrically at multiple levels but most pronounced L4-S1, with disc space narrowing L5-S1 slightly increased. There is multilevel facet arthrosis. No new compression fractures. XR/XR lumbar spine 2-3V IMPRESSION: 1. Wedge compression deformity at L1, not appearing significantly changed since November 2019. No new compression fractures seen. 2. Anterolisthesis L4-L5, not appearing significantly changed. Degenerative disc space narrowing L4-S1, slightly increased at L5-S1. 3. Multilevel facet arthrosis.
[2022-09-13 06:28] VITALS: BP 186/74; PULSE 64; O2SAT 94
[2022-09-13 06:37] VITALS: BP 145/49; PULSE 63; RESP 18; TEMP 36.7; O2SAT 98; BMI 35.6
--- NOTE | 2022-09-13 07:07 | ED_ITS ---
HPI - Back Pain/Injury General Chief Complaint: Back Pain/Injury Stated Complaint: lower back pain Time Seen by Provider: 09/13/22 06:57 Source: patient Mode of arrival: ambulatory Limitations: no limitations History of Present Illness HPI Narrative: 82-year-old female came in by ambulance for evaluation of back pain. Patient lives home by herself mostly independent patient normally able to ambulate at home this morning patient was trying to get out of her recliner and could not do so because of severe low back pain that the patient gets every now and then patient called 911 for help to get out of the recliner patient was transferred to the hospital by EMS despite patient did not want to go to the hospital. Related Data Home Medications Medication Instructions Recorded Confirmed losartan 50 mg tablet 50 mg PO DAILY 03/31/22 Previous Rx's Medication Instructions Recorded blood-glucose meter (Medical EnvelopeStyle #1 ea 09/29/21 Lite Meter kit) atorvastatin 10 mg tablet 10 mg PO DAILY #90 tabs 11/23/21 blood sugar diagnostic (FreeStyle #100 ea 11/23/21 Lite Strips) lancets 28 gauge (FreeStyle #100 ea 11/23/21 Lancets) levothyroxine 75 mcg tablet 75 mcg PO DAILY #90 tabs 01/26/22 metronidazole 500 mg tablet 500 mg PO BID #14 tabs 03/25/22 sulfamethoxazole 800 1 tab PO BID 5 days #10 tabs 04/30/22 mg-trimethoprim 160 mg tablet (Bactrim DS) glipizide 5 mg tablet 2.5 mg PO BID #60 tabs 05/26/22 isosorbide mononitrate 60 mg 60 mg PO DAILY #90 tabs 05/26/22 tablet,extended release 24 hr Allergies Allergy/AdvReac Type Severity Reaction Status Date / Time bee pollen [bee stings] Allergy Severe Anaphylaxis Verified 04/27/22 14:24 Iodinated Contrast Media Allergy Severe Anaphylaxis Verified 04/27/22 14:24 [IV CONTRAST] THERMONOL Allergy Severe ANAPHYLATIC, Verified 04/27/22 14:24 BRUISING metformin [METFORMIN] Allergy Unknown UNKNOWN Verified 04/27/22 14:24 oxybutynin Allergy Unknown Unknown Verified 04/27/22 14:24 Penicillins [PENICILLINS] Allergy Unknown UNKNOWN Verified 04/27/22 14:24 solifenacin [Vesicare] Allergy Unknown Unknown Verified 04/27/22 14:24 gluten [GLUTEN] AdvReac Intermediate STOMACH Verified 04/27/22 14:24 UPSET insulin detemir AdvReac Unknown BRUISES Verified 04/27/22 14:24 lisinopril [From ZESTRIL] AdvReac Unknown COUGH Verified 04/27/22 14:24 metoprolol [METOPROLOL] AdvReac Unknown SEVERE Verified 04/27/22 14:24 ANGINA Review of Systems Review of Systems: All other systems are reviewed and are negative Constitutional: Reports as per HPI and Reports no additional constitutional complaints Eyes: Reports as per HPI and Reports no additional eye complaints Reports system reviewed and no additional complaints, except as documented Cardiovascular: Reports as per HPI and Reports no additional cardiovascular complaints Respiratory: Reports as per HPI and Reports no additional respiratory complaints Gastrointestinal: Reports as per HPI and Reports no additional gastrointestinal complaints Genitourinary: Reports no additional female genitourinary complaints Musculoskeletal: Reports no additional musculoskeletal complaints Skin/Breast: Reports system reviewed and no additional complaints, except as docu Psychiatric: Reports no additional psychiatric complaints Endocrine: Reports no additional endocrine complaints Hematologic/Lymphatic: Reports no additional hematologic/lymphatic complaints Allergic/Immunologic: Reports no additional allergic/immunologic complaints Reports system reviewed and no additional complaints, except as documented and Reports Abnormal speech present [facility] Past Medical History Medical History Asthma CHF (congestive heart failure) Diabetes mellitus with hyperglycemia Diabetes type 2, controlled Essential hypertension Fibromyalgia Hypertension Hypothyroid Non compliance w medication regimen Sleep apnea Umbilical hernia Surgical History History of cholecystectomy History of left hip replacement History of thyroidectomy History of tooth extraction Social History Social History Housing: House Alcohol intake: never Patient Tobacco Use Status: Never used Tobacco e-Cigarette/Vaping Use: Never Used Second Hand Smoke Exposure: No Advance Directives: Yes Advance Directives on File: Yes Advance Directives Date on File: 11/02/21 service: No Current occupational status: retired Cognitive needs: Yes (cane) Hearing needs: No Vision needs: Yes (glasses) Physical Exam Vital Signs: Vital Signs: Last Vital Signs Temp 98.1 F 09/13/22 06:37 Pulse 63 09/13/22 06:37 Resp 18 09/13/22 06:37 BP 145/49 H 09/13/22 06:37 Pulse Ox 98 09/13/22 06:37 O2 Del Method 09/13/22 06:37 BMI result Body Mass Index 35.6 Vital signs have been reviewed as appeared to be correct. Blood pressure normal. Heart rate normal. Respiration rate normal. Temperature normal. Oxygen saturation normal. Appearance: Alert. Oriented X3. No acute distress. Head: Normal external exam. Normocephalic. Atraumatic. No Weinstein signs noted. No raccoon eyes noted Eyes: PERRLA. EOMI. Conjunctiva and sclera normal. Eyelids normal. ENT: TM's Normal. Pharynx normal. Uvula midline. Moist mucous membranes. No trismus noted. No drooling noted. No muffled voice noted. Neck: Normal inspection. Neck supple. FROM. No adenopathy. Thyroid Normal. No meningeal signs. No neck mass noted. CVS: Normal heart rate and rhythm. Heart sound normal. No murmurs noted. Pulses normal throughout. Respiratory: No respiratory distress. Painless inspiration. Breath sounds normal. No wheezes/rales/rhonchi noted. Chest nontender. No accessory muscle usage noted or decreased air movement noted. Abdomen: Soft and nontender. Bowel sounds normal in all 4 quadrants. No distention noted. No organomegaly noted. No visible injury noted. Back: No CVA tenderness. Full range of motion noted. Skin: Skin warm and dry. Normal skin color. Normal skin turgor. No rashes/lesions/lacerations noted. Extremities: No lower extremity edema. Extremities exhibit normal range of motion. Extremities nontender. Neuro: Oriented X 3. Cranial nerve exam: II-XII are grossly intact No motor deficit. No sensory deficit. Reflexes normal. Course Course Course Narrative: Acute on chronic low back pain patient could not get out of the recliner, x- ray/physical exam/UA are unremarkable patient was offered to be transferred to rehab for short-term patient decline and would like to go home. Patient is ambulating in the emergency department at her baseline. Medical Decision Making Differential Diagnosis Differential Diagnoses: The differential diagnosis associated with the presentation includes (Arthritis, myofascial back pain, compression fracture of L spine, UTI) Lab Data Labs: Lab Results 09/13/22 Range/Units 09:45 Urine Color Yellow Urine Appearance Clear Urine pH 6.5 (5.0-9.0) Ur Specific [place] 1.010 (1.005-1.025) Urine Protein Negative (Neg-Trace) mg/dL Urine Glucose (UA) 100 H (Negative) mg/dL Urine Ketones Negative (Negative) mg/dL Urine Blood Negative (Negative) Urine Nitrite Negative (Negative) Ur Leukocyte Esterase Negative (Negative) Discharge Plan Discharge Clinical Impression: Chronic back pain, Closed compression fracture of L1 vertebra Patient Disposition: Home, Self-Care Instructions: Back Pain (ED) Prescriptions: No Action (DME) blood-glucose meter [FreeStyle Lite Meter] Kit See Rx Instructions .Route Qty: 1 0RF Rx Instructions: Test once daily levothyroxine 75 mcg tablet 75 mcg PO DAILY Qty: 90 0RF sulfamethoxazole-trimethoprim [Bactrim DS] 800-160 mg tablet 1 tab PO BID 5 Days Qty: 10 0RF glipizide 5 mg tablet 2.5 mg PO BID Qty: 60 0RF isosorbide mononitrate 60 mg tablet extended release 24 hr 60 mg PO DAILY Qty: 90 1RF metronidazole 500 mg tablet 500 mg PO BID Qty: 14 0RF atorvastatin 10 mg tablet 10 mg PO DAILY Qty: 90 0RF (DME) FreeStyle Lite Strips Strip See Rx Instructions .Route Qty: 100 0RF Rx Instructions: Test once daily (DME) lancets [FreeStyle Lancets] 28 gauge misc See Rx Instructions .Route Qty: 100 0RF Rx Instructions: Test once daily losartan 50 mg tablet 50 mg PO DAILY
[2022-09-13 09:59] LABS: Appearance Urine Clear; Color Urine Yellow; Glucose Urine UA 100 mg/dL (Negative); Leukocyte Esterase Urine Negative (Negative); Nitrite Urine Negative (Negative); PH 6.5 (5.0-9.0); Urine Blood Negative (Negative); Urine Ketones Negative (Negative); Urine Protein Negative (Neg-Trace)
== END 2022-09-13 10:52 | disposition home or self-care (01) ==
PROVIDERS: Emergency Provider Emergency Medicine
DX: G89.29 Other chronic pain (principal); M54.50 Low back pain, unspecified; M48.56XA Collapsed vertebra, not elsewhere classified, lumbar region, initial encounter for fracture
CPT/HCPCS: 72100; 81003; 99282; 99283

== ENCOUNTER 2022-12-13 17:12 | Emergency (ER) | payer MEDICARE, SELFPAY ==
[2022-12-13 17:43] VITALS: BP 129/37; PULSE 69; RESP 18; TEMP 36.1; O2SAT 98; BMI 33.7
--- NOTE | 2022-12-13 18:03 | ED_ITS ---
HPI - General Adult General Chief complaint: Fall Stated complaint: fall Time Seen by Provider: 12/13/22 17:41 Source: patient Mode of arrival: ambulatory Limitations: no limitations History of Present Illness HPI narrative: 82 yold female female presents to the ED for DM, hypothyroid, chronic back pain presents to the ED for mechanical Fall. patient states fall led to head trauma after slipping. Patient states she was walking barefoot to her bathrrom and her feet slipped and she fell backwards unto her head and now has neck pain. patient denies any other complaints. patient denies having any chest pain, dizziness, headache, or abdominal pain before falling. Related Data Home Medications Medication Instructions Recorded Confirmed losartan 50 mg tablet 50 mg PO DAILY 03/31/22 Previous Rx's Medication Instructions Recorded blood-glucose meter (AlgenetixStyle #1 ea 09/29/21 Lite Meter kit) atorvastatin 10 mg tablet 10 mg PO DAILY #90 tabs 11/23/21 blood sugar diagnostic (FreeStyle #100 ea 11/23/21 Lite Strips) lancets 28 gauge (FreeStyle #100 ea 11/23/21 Lancets) levothyroxine 75 mcg tablet 75 mcg PO DAILY #90 tabs 01/26/22 metronidazole 500 mg tablet 500 mg PO BID #14 tabs 03/25/22 sulfamethoxazole 800 1 tab PO BID 5 days #10 tabs 04/30/22 mg-trimethoprim 160 mg tablet (Bactrim DS) glipizide 5 mg tablet 2.5 mg PO BID #60 tabs 05/26/22 isosorbide mononitrate 60 mg 60 mg PO DAILY #90 tabs 05/26/22 tablet,extended release 24 hr Allergies Allergy/AdvReac Type Severity Reaction Status Date / Time bee pollen [bee stings] Allergy Severe Anaphylaxis Verified 12/13/22 17:45 Iodinated Contrast Media Allergy Severe Anaphylaxis Verified 12/13/22 17:45 [IV CONTRAST] THERMONOL Allergy Severe ANAPHYLATIC, Verified 12/13/22 17:45 BRUISING metformin [METFORMIN] Allergy Unknown UNKNOWN Verified 12/13/22 17:45 oxybutynin Allergy Unknown Unknown Verified 12/13/22 17:45 Penicillins [PENICILLINS] Allergy Unknown UNKNOWN Verified 12/13/22 17:45 solifenacin [Vesicare] Allergy Unknown Unknown Verified 12/13/22 17:45 gluten [GLUTEN] AdvReac Intermediate STOMACH Verified 12/13/22 17:45 UPSET insulin detemir AdvReac Unknown BRUISES Verified 12/13/22 17:45 lisinopril [From ZESTRIL] AdvReac Unknown COUGH Verified 12/13/22 17:45 metoprolol [METOPROLOL] AdvReac Unknown SEVERE Verified 12/13/22 17:45 ANGINA Review of Systems Review of Systems: fall Yes all other systems are reviewed and are negative [facility] Past Medical History Medical History Asthma CHF (congestive heart failure) Diabetes mellitus with hyperglycemia Diabetes type 2, controlled Essential hypertension Fibromyalgia Hypertension Hypothyroid Non compliance w medication regimen Sleep apnea Umbilical hernia Surgical History History of cholecystectomy History of left hip replacement History of thyroidectomy History of tooth extraction Social History Social History Housing: House Alcohol intake: never Patient Tobacco Use Status: Never used Tobacco e-Cigarette/Vaping Use: Never Used Second Hand Smoke Exposure: No Advance Directives: Yes Advance Directives on File: Yes Advance Directives Date on File: 11/02/21 service: No Current occupational status: retired Cognitive needs: Yes (cane) Hearing needs: No Vision needs: Yes (glasses) Physical Exam ED Vital Signs: Vital Signs - 24 hr 12/13/22 17:43 Temperature 97.0 F Pulse Rate 69 Respiratory Rate 18 Blood Pressure 129/37 L Pulse Oximetry 98 Oxygen Delivery Method Room Air BMI result Body Mass Index 33.7 Const General: cooperative, healthy appearing, comfortable, no acute distress, well developed, alert, awake and Physically active Orientation/consciousness: oriented to person, oriented to place, oriented to time and patient oriented x3 HENMT Head: Yes normal to inspection, Yes No palpable skull fracture present, Yes normocephalic, Yes atraumatic and No abrasion Eyes General: appearance normal, both eyes and all related structures Neck Neck: Yes normal visual inspection, Yes full ROM, Yes no lymphadenopathy, Yes no meningeal signs, Yes trachea midline, Yes supple, No anterior neck swelling and Yes tender (positive posterior cervical spine tenderness on palpation. ) Chest Chest palpation & inspection: normal inspection of the chest and normal palpation of entire chest wall Resp Effort & Inspection: normal respiratory effort and able to speak in complete sentences Auscultation: clear to auscultation bilaterally Cardio Jugular venous distension: no JVD Heart sounds: S1 normal heart sound present and S2 normal heart sound present GI Inspection: Yes normal to inspection and No abdominal wall ecchymosis Palpation (GI): Soft to palpation, not firm, nontender, no guarding and not rigid General: No CVA tenderness and Yes no CVA tenderness Back/Spine/Pelvis Back: no CVA tenderness, No CVA tenderness and No back tenderness Skin General skin exam: no rashes or lesions noted and elasticity normal Neuro General: oriented to person, oriented to place, oriented to time, patient oriented x3, tone normal, moves all extremities, Normal light touch and pain sensation, no meningeal signs, no focal motor deficits, CN's II-XI intact bilaterally and normal sensation to monofilament Extrem General: Yes normal to inspection and Yes full ROM Psych Appearance: grossly normal, well kempt and not disheveled Course Course Course Narrative: Patient placed on Cervical-spine collar. Mechanical fall. Rest of body negative for trauma, crepitus, ecchymosis, or tenderness. only Cervical spine [place]. Head CT and Cervical Spine ordered. Reevaluation(s) Reevaluation #1: Patient refused CT scan of head and neck. Patient like to discharge against medical advice. Patient made aware risk of brain bleed, skull fracutre and risk of paralysis from cervical spine fracture patient is on blood thinner high risk. Patient understand risks and still wants to sign out against medical advice Knowing risk of and life altering disabilities. Patient placed in soft neck collar for AMA. Patient removed hard collar. Time: 20:00 Medical Decision Making Medical Decision Making MDM Narrative: 82-year-old female on blood thinners presents to ED for fall and hitting head and neck. Patient describes neck pain. Patient refused cervical spine CT and head CT scan to rule out bleed and cervical spine fracture. Patient informed she is high risk of brain bleed and paralysis but patient still wanted to sign out against medical advice known risk of and paralysis, skull fracture, and brain bleed. Patient signed against medical advice. Patient placed in soft collar. Differential Diagnosis Differential Diagnoses: The differential diagnosis associated with the presentation includes (Brain bleed, skull fracture, cervical spine subluxation,) Prescription Management I considered prescription management with: Other (Soft collar) Discharge Plan Discharge Clinical Impression: Head injury, Neck pain Patient Disposition: Left Against Medical Advice Instructions: Head Injury (ED), Soft Cervical Collar (ED), Acute Neck Pain (ED) Additional Instructions: You are signing out against medical advice known risk of , disability, and decreased quality of life. Return to the ED immediately for any headache, nausea, vomiting, abdominal pain, chest pain, shortness of breath, tingling paralysis of extremities, or any other concerning symptoms. Keep soft neck collar on. Please follow-up with primary care provider Prescriptions: No Action (DME) blood-glucose meter [FreeStyle Lite Meter] Kit See Rx Instructions .Route Qty: 1 0RF Rx Instructions: Test once daily levothyroxine 75 mcg tablet 75 mcg PO DAILY Qty: 90 0RF sulfamethoxazole-trimethoprim [Bactrim DS] 800-160 mg tablet 1 tab PO BID 5 Days Qty: 10 0RF glipizide 5 mg tablet 2.5 mg PO BID Qty: 60 0RF isosorbide mononitrate 60 mg tablet extended release 24 hr 60 mg PO DAILY Qty: 90 1RF metronidazole 500 mg tablet 500 mg PO BID Qty: 14 0RF atorvastatin 10 mg tablet 10 mg PO DAILY Qty: 90 0RF (DME) FreeStyle Lite Strips Strip See Rx Instructions .Route Qty: 100 0RF Rx Instructions: Test once daily (DME) lancets [FreeStyle Lancets] 28 gauge misc See Rx Instructions .Route Qty: 100 0RF Rx Instructions: Test once daily losartan 50 mg tablet 50 mg PO DAILY Stand Alone Forms: Against Medical Advice Interventions: ED Discharge Assessment Last Done: 12/13/22 20:03 Discharge Date/Time: 12/13/22 20:03 Print Language: Italian
--- NOTE | 2022-12-13 20:03 | PC.NURSE ---
this rn assumed care of pt @ [id number]. pt agitated by wait time, pt reports wanting to leave against medical advice. tasha rizvi to pt bedside. pt refusing to stay for medical treatment and CT scan. pt refused vs. pt given soft neck brace per cal request. pt ambulatory at time of leaving. pt signed AMA paperwork.
== END 2022-12-13 20:03 | disposition left against medical advice (07) ==
PROVIDERS: Emergency Provider Internal Medicine
DX: M54.2 Cervicalgia (principal); S09.90XA Unspecified injury of head, initial encounter; W01.0XXA Fall on same level from slipping, tripping and stumbling without subsequent striking against object, initial encounter; E11.9 Type 2 diabetes mellitus without complications; I11.0 Hypertensive heart disease with heart failure; Z79.02 Long term (current) use of antithrombotics/antiplatelets; Z79.899 Other long term (current) drug therapy; Y93.89 Activity, other specified; Y92.012 Bathroom of single-family (private) house as the place of occurrence of the external cause; Y99.9 Unspecified external cause status
CPT/HCPCS: 99282

== ENCOUNTER 2024-08-21 22:15 | Inpatient (IN) | payer MEDICARE, MEDICAID, SELFPAY ==
--- NOTE | 2024-08-21 | ECG_ITS ---
Test Reason : AMS Blood Pressure : */* mmHG Vent. Rate : 62 BPM Atrial Rate : * BPM P-R Int : * ms QRS Dur : 90 ms QT Int : 402 ms P-R-T Axes : * -50 93 degrees QTcB Int : 408 ms Normal sinus rhythm Left anterior fascicular block Nonspecific ST and T wave abnormality Abnormal ECG When compared with ECG of 24-Mar-2022 15:06, T wave inversion now evident in Lateral leads Referred By: Generic ED Physician Electronically Signed By: SAMAN SWEENEY MD
--- NOTE | ~2024-08-21 | CT_ITS ---
CLINICAL HISTORY: abd pain, dysuria CT abdomen and pelvis without contrast Comparison: CT/SR - CT ABDOMEN PELVIS WO IV CON - 03/24/22 15:37 EDT Findings: Small hiatal hernia. Atelectasis. Hepatomegaly with scattered calcified granulomas and hypodense lesions, inferiorly 1 of which is peripherally calcified. Findings are grossly similar to prior. This may be further evaluated with ultrasound. Cardiomegaly without significant pericardial effusion. Coronary artery calcifications. Atrophic pancreas. Tiny less than 2 mm nonobstructive calculus in the left lower pole kidney. Possible tiny hemorrhagic left lower pole renal cysts. No bowel obstruction, pneumoperitoneum, or pneumatosis. Fat containing umbilical hernia. Post hysterectomy. Scattered colonic diverticulosis with possible very subtle peridiverticular stranding along the sigmoid segment may reflect early diverticulitis. Normal appendix. Left total hip arthroplasty. 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 Osteopenia with diffuse multilevel spondylosis. Grade 1 anterolisthesis at L4-L5. L1 compression fracture, stable. Thoracic diffuse idiopathic skeletal hyperostosis. Diffuse atheromatous plaque disease throughout the aorta and branch vessels, without aneurysmal dilatation. 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 Postcholecystectomy. Left-sided phleboliths. IMPRESSION: 1. Possible early, mild sigmoid diverticulitis. 2. Tiny less than 2 mm nonobstructive calculus in the left lower pole kidney. 3. Additional findings as described. This document has been electronically signed by: Jose Alejandro Williamson MD on 08/22/2024 03:57:46
[2024-08-21 22:31] VITALS: BP 166/90; PULSE 68; O2SAT 98
[2024-08-21 22:48] VITALS: BP 141/46; PULSE 63; RESP 16; TEMP 36.9; O2SAT 100; BMI 37.9
[2024-08-21 23:42] LABS: Appearance Urine Clear; Color Urine Yellow; Glucose Urine UA Negative (Negative); Leukocyte Esterase Urine Small (1+) (Negative); Nitrite Urine Positive (Negative); PH 5.5 (5.0-9.0); UMIC TRIGGER UACC YES; Urine Blood Negative (Negative); Urine Ketones Negative (Negative); Urine Protein Negative (Neg-Trace)
[2024-08-21 23:47] LABS: Bacteria Urine 4+ (None Seen); Hyaline Casts Urine 0-2 /LPF (0-2); RBC Urine 0-2 /HPF (0-2); UACC Culture Trigger YES; WBC Urine 21-50 /HPF (0-5)
[2024-08-21 23:49] LABS: MANUAL DIFF FLAG NO
[2024-08-21 23:50] LABS: Basophils Absolute Auto 0.1 X10*3/uL (0.0-0.2); Basophils Percent Auto 0.6 % (0-2); Eosinophils Absolute Auto 0.5 X10*3/uL (0.0-0.4); Eosinophils Percent Auto 3.9 % (0-4); Hematocrit 31.9 % (37.0-47.0); Hemoglobin 10.8 g/dl (12.0-16.0); Imm Gran Abs Auto 0.05 X10*3/uL (0.00-0.03); Imm Gran Pct Auto 0.4 % (0.0-0.4); Lymphocytes Absolute Auto 2.7 X10*3/uL (1.2-4.9); Lymphocytes Percent Auto 23.5 % (20-40); Mean Corpuscular HGB Conc 33.9 g/dl (31.0-35.0); Mean Corpuscular Hemoglobin 28.7 pg (27.0-33.0); Mean Corpuscular Volume 84.8 fL (80.0-98.0); Monocytes Percent Auto 8.7 % (2-11); Neutrophils Absolute Auto 7.3 x10*3/uL (2.0-8.3); Neutrophils Percent Auto 62.9 % (45-73); Platelet Count 253 X10*3/uL (160-400); Red Blood Count 3.76 X10*6/uL (4.20-5.50); Red Cell Distribution Width 13.7 % (11.0-16.0); White Blood Count 11.6 X10*3/uL (4.8-10.8)
[2024-08-22] LABS: Troponin-I High Sensitivity 3.7 ng/L (<3.5-17.0)
--- NOTE | 2024-08-22 | PC.NURSE ---
call received from Atif, patient's family friend, who reports patient has dementia at baseline, he is part of her care team states there is about 12 people involved in her care who visit daily and help her with medications, ADLs, etc. he is concerned for her safety as he believes her dementia/physical health is declining. Atif states patient would benefit from case management consult to possibly assist in getting more help for patient at home. MD aware. for this RN patient is alert and oriented to self, pt is confused about situation, location, year, month.
[2024-08-22 00:12] LABS: Alanine Aminotransferase 9 U/L (0-31); Albumin Level 3.4 g/dL (3.5-5.0); Alkaline Phosphatase 55 U/L (39-117); Anion Gap 17 (12-20); Aspartate Amino Transferase 17 U/L (5-31); Bilirubin Total 0.2 mg/dL (0.0-1.0); Blood Urea Nitrogen 34 mg/dL (9-16); Calcium 8.9 mg/dL (8.4-10.2); Carbon Dioxide 21 mmol/L (22-29); Chloride 107 mmol/L (96-108); Creatinine Clr Calc Pharmacy 61.4; Estimated Glomerular Filt Rate > 60; Glucose Random 208 mg/dL (60-115); Potassium 4.6 mmol/L (3.3-5.1); Sodium 140 mmol/L (135-145); Total Protein 6.9 g/dL (6.5-8.0)
[2024-08-22 00:19] LABS: Influenza A PCR NEGATIVE (Negative); Influenza B PCR NEGATIVE (Negative); Resp Syncy Virus RNA Qual PCR NEGATIVE (Negative); SARS COV2 PCR INHOUSE NEGATIVE (Negative)
[2024-08-22 02:01] VITALS: BP 138/54; PULSE 70; RESP 18; TEMP 36.7; O2SAT 99
--- NOTE | 2024-08-22 02:12 | ED.GENADULT ---
HPI - General Adult General Chief complaint: Altered Mental Status Stated complaint: 03/30 back pain, hx 2w cellulitis legs and ankles Time Seen by Provider: 08/21/24 23:45 Source: EMS Mode of arrival: EMS Limitations: altered mental status History of Present Illness ED Provider: HPI narrative: Patient with history of dementia and diabetes complaining of back pain without radiation for last 2 days no history of fall patient does have history of dementia hypothyroidism hypotension diabetes hyperlipidemia forgetful does not remember why she came to the ER and who called the EMS does complain of intermittent urinary hesitancy and urgency is going on for last 2 days with back pain patient's lives alone on arrival patient's blood sugar was 404 Related Data Home Medications ?Medication ?Instructions ?Recorded ?Confirmed losartan 50 mg tablet 50 mg PO DAILY 03/31/22 Previous Rx's ?Medication ?Instructions ?Recorded blood-glucose meter (Curious HatStyle #1 ea 09/29/21 Lite Meter kit) atorvastatin 10 mg tablet 10 mg PO DAILY #90 tabs 11/23/21 blood sugar diagnostic (FreeStyle #100 ea 11/23/21 Lite Strips) lancets 28 gauge (FreeStyle #100 ea 11/23/21 Lancets) levothyroxine 75 mcg tablet 75 mcg PO DAILY #90 tabs 01/26/22 metronidazole 500 mg tablet 500 mg PO BID #14 tabs 03/25/22 sulfamethoxazole 800 1 tab PO BID 5 days #10 tabs 04/30/22 mg-trimethoprim 160 mg tablet (Bactrim DS) glipizide 5 mg tablet 2.5 mg (1/2 x 5 mg) PO BID #60 tabs 05/26/22 isosorbide mononitrate 60 mg 60 mg PO DAILY #90 tabs 05/26/22 tablet,extended release 24 hr Allergies Allergy/AdvReac Type Severity Reaction Status Date / Time bee pollen [bee stings] Allergy Severe Anaphylaxis Verified 08/21/24 22:51 Iodinated Contrast Media Allergy Severe Anaphylaxis Verified 08/21/24 22:51 [IV CONTRAST] THERMONOL Allergy Severe ANAPHYLATIC, Verified 08/21/24 22:51 BRUISING metformin [METFORMIN] Allergy Unknown UNKNOWN Verified 08/21/24 22:51 oxybutynin Allergy Unknown Unknown Verified 08/21/24 22:51 Penicillins [PENICILLINS] Allergy Unknown UNKNOWN Verified 08/21/24 22:51 solifenacin [Vesicare] Allergy Unknown Unknown Verified 08/21/24 22:51 gluten [GLUTEN] AdvReac Intermediate STOMACH Verified 08/21/24 22:51 UPSET insulin detemir AdvReac Unknown BRUISES Verified 08/21/24 22:51 lisinopril [From ZESTRIL] AdvReac Unknown COUGH Verified 08/21/24 22:51 metoprolol [METOPROLOL] AdvReac Unknown SEVERE Verified 08/21/24 22:51 ANGINA Review of Systems Review of Systems: Yes Unobtainable due to mental status [facility] Past Medical History Medical History Umbilical hernia Diabetes mellitus with hyperglycemia Non compliance w medication regimen Hypothyroid Diabetes type 2, controlled Essential hypertension Fibromyalgia Sleep apnea Asthma Hypertension Surgical History History of tooth extraction History of left hip replacement History of cholecystectomy History of thyroidectomy Social History Social History Housing: House Alcohol intake: never Patient Tobacco Use Status: Never used Tobacco Smoked in Last 30 Days: No e-Cigarette/Vaping Use: Never Used Second Hand Smoke Exposure: No Use of substances other than those prescribed or required for medical reasons: No Advance Directives: Yes Advance Directives on File: Yes Advance Directives Date on File: 11/02/21 Do you have a plan to hurt others: No Plan service: No Current occupational status: retired Cognitive needs: Yes (cane) Hearing needs: No Vision needs: Yes (glasses) Physical Exam ED Vital Signs: Vital Signs - 24 hr 08/21/24 22:48 08/22/24 02:01 Temperature 98.4 F 98.0 F Pulse Rate 63 70 Respiratory Rate 16 18 Blood Pressure 141/46 H 138/54 L Pulse Oximetry 100 99 Oxygen Delivery Method Room Air Room Air BMI result Body Mass Index 37.9 Appearance: Alert. Oriented X2. No acute distress. Eyes: PERRLA, No Nystagmus ENT: Pharynx normal. Oral Mucosa moist Neck: Normal inspection. Neck supple. CVS: Normal heart rate and rhythm. Pulses normal. Respiratory: No respiratory distress. Equal air entry bilateral, no wheezing/rales/rhonchi Abdomen: Soft and nontender. Bowel sounds are present, no mass palpable, no CVA tenderness Skin: Skin warm and dry. Normal skin color. Normal skin turgor. Extremities: Bilateral edematous lower extremity with erythema right more than the left with scratch falcon Neuro: Oriented X 2. No motor deficit. No sensory deficit.No cerebellar signs , cranial nerves II-XII intact Medications Administered Generic Name Dose Route Start Last Admin Trade Name Freq PRN Reason Stop Dose Admin Ceftriaxone Sodium 1 gm 08/22/24 04:00 08/22/24 04:51 Ceftriaxone Sodium 1 Gm Vial IVPUSH 1 gm Q24H BRY Administration Insulin Glargine 15 unit 08/22/24 03:45 08/22/24 04:51 Insulin Glargine,Hum.Rec.Anlog 100 Unit/Ml 10 Ml Vial SUBCUT 15 unit BEDTIME BRY Administration Discontinued Medications Generic Name Dose Route Start Last Admin Trade Name Freq PRN Reason Stop Dose Admin Vancomycin HCl 1,000 mg/ 270 mls @ 270 mls/hr 08/22/24 02:12 08/22/24 04:00 Sodium Chloride IV 08/22/24 03:11 Infused ONCE ONE Infusion Vancomycin HCl 1,000 mg/ 270 mls @ 270 mls/hr 08/22/24 04:00 08/22/24 05:51 Sodium Chloride IV 08/22/24 04:59 Infused ONCE ONE Infusion Lorazepam 0.5 mg 08/22/24 02:48 08/22/24 02:58 Lorazepam 2 Mg/Ml Vial IVPUSH 08/22/24 02:49 0.5 mg STAT STA Administration Medical Decision Making Medical Decision Making [facility] Narrative: Patient with UTI with hyperglycemia with cellulitis of lower extremity will admit patient started on IV vancomycin in the Rocephin CT scan of the abdomen showed possible mild sigmoid diverticulitis started on Flagyl Differential Diagnosis Differential Diagnoses: The differential diagnosis associated with the presentation includes Admission/Observation Consideration of admission/observation: Escalation of care including admission/observation considered Consult Healthcare Provider Management of the patient was discussed with: Hospitalist Lab Data [facility] Lab Attestation statement: I reviewed the patient's lab results. 08/22/24 04:50 08/22/24 04:50 Labs: Lab Results 02/11/25 02/11/25 02/11/25 Range/Units 23:34 23:35 23:46 WBC 11.6 H (4.8-10.8) X10*3/uL RBC 3.76 L (4.20-5.50) X10*6/uL Hgb 10.8 L (12.0-16.0) g/dl Hct 31.9 L (37.0-47.0) % MCV 84.8 (80.0-98.0) fL MCH 28.7 (27.0-33.0) pg MCHC 33.9 (31.0-35.0) g/dl RDW 13.7 (11.0-16.0) % Plt Count 253 (160-400) X10*3/uL MPV 9.0 L (9.4-12.3) fL Immature Gran % (Auto) 0.4 (0.0-0.4) % Neut % (Auto) 62.9 (45-73) % Lymph % (Auto) 23.5 (20-40) % [place] % (Auto) 8.7 (2-11) % Eos % (Auto) 3.9 (0-4) % Baso % (Auto) 0.6 (0-2) % Lymph # (Auto) 2.7 (1.2-4.9) X10*3/uL [place] # (Auto) 1.0 (0.1-1.2) X10*3/uL Eos # (Auto) 0.5 H (0.0-0.4) X10*3/uL Baso # (Auto) 0.1 (0.0-0.2) X10*3/uL Abs Immat Gran (auto) 0.05 H (0.00-0.03) X10*3/uL Absolute Neuts (auto) 7.3 (2.0-8.3) x10*3/uL Absolute Nucleated RBC 0.000 (0.0-0.012) X10*3/uL Nucleated RBC % (auto) 0.0 (0.0-0.2) /100WBC Sodium 140 (135-145) mmol/L Potassium 4.6 (3.3-5.1) mmol/L Chloride 107 (96-108) mmol/L Carbon Dioxide 21 L (22-29) mmol/L Anion Gap 17 (12-20) BUN 34 H (9-16) mg/dL Creatinine 0.77 (0.5-1.4) mg/dL Estim Creat Clear Calc 61.4 Estimated GFR > 60 Random Glucose 208 H (60-115) mg/dL Lactic Acid (0.5-2.0) mmol/L Calcium 8.9 (8.4-10.2) mg/dL Total Bilirubin 0.2 (0.0-1.0) mg/dL AST 17 (5-31) U/L ALT 9 (0-31) U/L Alkaline Phosphatase 55 (39-117) U/L Troponin I High Sens 3.7 (<3.5-17.0) ng/L Total Protein 6.9 (6.5-8.0) g/dL Albumin 3.4 L (3.5-5.0) g/dL Urine Color Yellow Urine Appearance Clear Urine pH 5.5 (5.0-9.0) Ur Specific [place] 1.020 (1.005-1.025) Urine Protein Negative (Neg-Trace) mg/dL Urine Glucose (UA) Negative (Negative) mg/dL Urine Ketones Negative (Negative) mg/dL Urine Blood Negative (Negative) Urine Nitrite Positive H (Negative) Ur Leukocyte Esterase Small (1+) H (Negative) Urine RBC 0-2 (0-2) /HPF Urine WBC 21-50 H (0-5) /HPF Ur Squamous Epith Cells 3-5 (0-2) /HPF Urine Bacteria 4+ (None Seen) Hyaline Casts 0-2 (0-2) /LPF Influenza Type A (PCR) NEGATIVE (Negative) Influenza Type B (PCR) NEGATIVE (Negative) RSV RNA Qual (PCR) NEGATIVE (Negative) SARS-CoV-2 RNA (RT-PCR) NEGATIVE (Negative) 08/22/24 Range/Units 02:32 WBC (4.8-10.8) X10*3/uL RBC (4.20-5.50) X10*6/uL Hgb (12.0-16.0) g/dl Hct (37.0-47.0) % MCV (80.0-98.0) fL MCH (27.0-33.0) pg MCHC (31.0-35.0) g/dl RDW (11.0-16.0) % Plt Count (160-400) X10*3/uL MPV (9.4-12.3) fL Immature Gran % (Auto) (0.0-0.4) % Neut % (Auto) (45-73) % Lymph % (Auto) (20-40) % [place] % (Auto) (2-11) % Eos % (Auto) (0-4) % Baso % (Auto) (0-2) % Lymph # (Auto) (1.2-4.9) X10*3/uL [place] # (Auto) (0.1-1.2) X10*3/uL Eos # (Auto) (0.0-0.4) X10*3/uL Baso # (Auto) (0.0-0.2) X10*3/uL Abs Immat Gran (auto) (0.00-0.03) X10*3/uL Absolute Neuts (auto) (2.0-8.3) x10*3/uL Absolute Nucleated RBC (0.0-0.012) X10*3/uL Nucleated RBC % (auto) (0.0-0.2) /100WBC Sodium (135-145) mmol/L Potassium (3.3-5.1) mmol/L Chloride (96-108) mmol/L Carbon Dioxide (22-29) mmol/L Anion Gap (12-20) BUN (9-16) mg/dL Creatinine (0.5-1.4) mg/dL Estim Creat Clear Calc Estimated GFR Random Glucose (60-115) mg/dL Lactic Acid 1.0 (0.5-2.0) mmol/L Calcium (8.4-10.2) mg/dL Total Bilirubin (0.0-1.0) mg/dL AST (5-31) U/L ALT (0-31) U/L Alkaline Phosphatase (39-117) U/L Troponin I High Sens (<3.5-17.0) ng/L Total Protein (6.5-8.0) g/dL Albumin (3.5-5.0) g/dL Urine Color Urine Appearance Urine pH (5.0-9.0) Ur Specific [place] (1.005-1.025) Urine Protein (Neg-Trace) mg/dL Urine Glucose (UA) (Negative) mg/dL Urine Ketones (Negative) mg/dL Urine Blood (Negative) Urine Nitrite (Negative) Ur Leukocyte Esterase (Negative) Urine RBC (0-2) /HPF Urine WBC (0-5) /HPF Ur Squamous Epith Cells (0-2) /HPF Urine Bacteria (None Seen) Hyaline Casts (0-2) /LPF Influenza Type A (PCR) (Negative) Influenza Type B (PCR) (Negative) RSV RNA Qual (PCR) (Negative) SARS-CoV-2 RNA (RT-PCR) (Negative) Independent Interpretation I performed an independent interpretation of an: EKG Interpretation: Sinus rhythm 62 beats per minute left anterior fascicular block no specific ST-T no acute ischemia Radiology Impression Discussion of test interpretation with radiology: I have reviewed the radiologist's reading. Radiologist Impression: tformin, oxybutynin, Penicillins, solifenacin, gluten, insulin detemir, lisinopril, metoprolol (More??) Close Abdomen/Pelvis CT (Signed) Jose Alejandro Williamson - 08/22/24 Lumbar Spine X-Ray (Signed) Pollo Whitmore - 09/13/22 Abdomen/Pelvis CT (Signed) Chari Tirado - 03/24/22 Chest X-Ray (Signed) Alexa Garcia - 03/24/22 Shoulder X-Ray (Signed) Daljit Miramontes - 03/16/[address] (Signed) Daljit Miramontes - 03/16/[address] (Signed) Daljit Miramontes - 03/16/22 Chest X-Ray (Signed) López Paul - 03/03/22 Chest X-Ray (Signed) Chari Tirado - 01/19/22 Shoulder X-Ray (Signed) Bhupendra Spann - 12/15/21 Ribs X-Ray (Signed) Bhupendra Spann - 12/15/21 Knee X-Ray (Signed) Bhupendra Spann - 12/15/21 Knee X-Ray (Signed) Bhupendra Spann - 12/15/21 Elbow X-Ray (Signed) Bhupendra Spann - 12/15/[address] (Signed) Lucy Rosa - 12/15/[address] (Signed) Lucy Rosa - 12/15/21 Hand X-Ray (Signed) Spencer Hu - 02/24/21 Venous Duplex (Signed) Spencer Mckeon - 09/18/20 Chest X-Ray (Signed) Spencer Mckeon - 09/18/20 Launch?Image [address] [address] [address] Scan Report Signed Patient: Ro Clark MR#: [id number] : 1940 Acct:[id number] Age/Sex: 84 / F ADM Date: 08/22/24 Loc: [place] [address]: Jeffery Baez MD Ordering Physician: Jeffery Baez MD Date of Service: 08/22/24 Procedure(s): CT abdomen pelvis wo IV con Accession Number(s): [id number] cc: Physician,Unknown ; Jeffery Baez MD~ Report Number: [id number]: Total DLP = 808.00 mGy-cm CLINICAL HISTORY: abd pain, dysuria CT abdomen and pelvis without contrast Comparison: CT/SR - CT ABDOMEN PELVIS WO IV CON - 03/24/22 15:37 EDT Findings: Small hiatal hernia. Atelectasis. Hepatomegaly with scattered calcified granulomas and hypodense lesions, inferiorly 1 of which is peripherally calcified. Findings are grossly similar to prior. This may be further evaluated with ultrasound. Cardiomegaly without significant pericardial effusion. Coronary artery calcifications. Atrophic pancreas. Tiny less than 2 mm nonobstructive calculus in the left lower pole kidney. Possible tiny hemorrhagic left lower pole renal cysts. No bowel obstruction, pneumoperitoneum, or pneumatosis. Fat containing umbilical hernia. Post hysterectomy. Scattered colonic diverticulosis with possible very subtle peridiverticular stranding along the sigmoid segment may reflect early diverticulitis. Normal appendix. Left total hip arthroplasty. 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 Osteopenia with diffuse multilevel spondylosis. Grade 1 anterolisthesis at L4-L5. L1 compression fracture, stable. Thoracic diffuse idiopathic skeletal hyperostosis. Diffuse atheromatous plaque disease throughout the aorta and branch vessels, without aneurysmal dilatation. 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 Postcholecystectomy. Left-sided phleboliths. IMPRESSION: 1. Possible early, mild sigmoid diverticulitis. 2. Tiny less than 2 mm nonobstructive calculus in the left lower pole kidney. 3. Additional findings as described. This document has been electronically signed by: Jose Alejandro Williamson MD on 08/22/2024 03:57:46 Discharge Plan Discharge Clinical Impression: Acute UTI, Hyperglycemia due to type 2 diabetes mellitus, Cellulitis, Metabolic encephalopathy, Diverticulitis Patient Disposition: Admitted As Inpatient
[2024-08-22] MEDS: vancomycin HCL 1,000 MG in 0.9 % Sodium Chloride 250 ML 270 MG IV ×2 (02:58→04:50)
[2024-08-22] MEDS: LORazepam 2 MG/ML VIAL 0.5 MG IVPUSH (02:58)
--- NOTE | 2024-08-22 03:32 | P.HPHOSP_ITS ---
History of Present Illness Date of Service: 08/22/24 Chief Complaint: Back pain This is a 84-year-old female with pertinent history of dementia, unspecified, hypothyroidism, hypertension, pgt-[id number]-nzwhmlywk diabetes mellitus, mixed hyperlipidemia who presents to the emergency department for evaluation of back pain and urinary urgency. Patient was brought to the ER via EMS but she does not remember calling EMS and does not know how she got to the hospital. She does endorse intermittent urinary hesitancy and urinary urgency that has been ongoing for the last 2 days. Also complains of back pain. States she is unable to perform ADLs and needs assistance. Has gotten progressively weak. No fever, chills, chest pain, palpitations, shortness of breath, changes in bowel habits. In the emergency department, patient was found to have UTI. Was initiated on broad-spectrum antibiotics. Review of Systems 2 Constitutional: Constitutional: Reports fatigue, Reports malaise and Reports weakness Cardiovascular: Cardiovascular: Reports no additional cardiovascular complaints Respiratory: Respiratory: Reports no additional respiratory complaints Genitourinary: Genitourinary: Reports urinary hesitancy and Reports urinary urgency Neurologic: Reports weakness Endocrine: Endocrine: Reports fatigue [facility] Medical History Umbilical hernia Diabetes mellitus with hyperglycemia Non compliance w medication regimen Hypothyroid Diabetes type 2, controlled Essential hypertension Fibromyalgia Sleep apnea Asthma Hypertension Surgical History History of tooth extraction History of left hip replacement History of cholecystectomy History of thyroidectomy Social History Housing: House Alcohol intake: never Patient Tobacco Use Status: Never used Tobacco Smoked in Last 30 Days: No e-Cigarette/Vaping Use: Never Used Second Hand Smoke Exposure: No Use of substances other than those prescribed or required for medical reasons: No Advance Directives: Yes Advance Directives on File: Yes Advance Directives Date on File: 11/02/21 Do you have a plan to hurt others: No Plan service: No Current occupational status: retired Cognitive needs: Yes (cane) Hearing needs: No Vision needs: Yes (glasses) Meds Allergies Allergy/AdvReac Type Severity Reaction Status Date / Time bee pollen [bee stings] Allergy Severe Anaphylaxis Verified 08/21/24 22:51 Iodinated Contrast Media Allergy Severe Anaphylaxis Verified 08/21/24 22:51 [IV CONTRAST] THERMONOL Allergy Severe ANAPHYLATIC, Verified 08/21/24 22:51 BRUISING metformin [METFORMIN] Allergy Unknown UNKNOWN Verified 08/21/24 22:51 oxybutynin Allergy Unknown Unknown Verified 08/21/24 22:51 Penicillins [PENICILLINS] Allergy Unknown UNKNOWN Verified 08/21/24 22:51 solifenacin [Vesicare] Allergy Unknown Unknown Verified 08/21/24 22:51 gluten [GLUTEN] AdvReac Intermediate STOMACH Verified 08/21/24 22:51 UPSET insulin detemir AdvReac Unknown BRUISES Verified 08/21/24 22:51 lisinopril [From ZESTRIL] AdvReac Unknown COUGH Verified 08/21/24 22:51 metoprolol [METOPROLOL] AdvReac Unknown SEVERE Verified 08/21/24 22:51 ANGINA Home Medications ?Medication ?Instructions ?Recorded ?Confirmed ?Last Taken ?Type losartan 50 mg tablet 50 mg PO DAILY 03/31/22 Unknown History Physical Exam 2 Vital Signs and Narrative: Vital Signs: Last Vital Signs Temp 98.0 F 08/22/24 02:01 Pulse 70 08/22/24 02:01 Resp 18 08/22/24 02:01 BP 138/54 L 08/22/24 02:01 Pulse Ox 99 08/22/24 02:01 O2 Del Method Room Air 08/22/24 02:01 BMI result Body Mass Index 37.9 Elderly female lying in bed in no distress Neck supple, no JVD Regular rate and rhythm, S1-S2 heard Regular breath sounds bilaterally, no wheezing or crackles appreciated Abdomen soft nontender, no guarding, no rigidity Patient is awake, alert and oriented x2 ; no focal motor deficit Psych: Normal mood Left lower extremity with erythema, warmth Results Labs 08/22/24 04:50 08/22/24 04:50 Labs: Laboratory Results - last 24 hr 08/21/24 08/21/24 08/21/24 23:34 23:35 23:46 MCV 84.8 MCH 28.7 MCHC 33.9 RDW 13.7 Plt Count 253 MPV 9.0 L Immature Gran % (Auto) 0.4 Neut % (Auto) 62.9 Lymph % (Auto) 23.5 [place] % (Auto) 8.7 Eos % (Auto) 3.9 Baso % (Auto) 0.6 Lymph # (Auto) 2.7 [place] # (Auto) 1.0 Eos # (Auto) 0.5 H Baso # (Auto) 0.1 Abs Immat Gran (auto) 0.05 H Absolute Neuts (auto) 7.3 Absolute Nucleated RBC 0.000 Nucleated RBC % (auto) 0.0 Anion Gap 17 Estim Creat Clear Calc 61.4 Estimated GFR > 60 Random Glucose 208 H Lactic Acid Calcium 8.9 Total Bilirubin 0.2 AST 17 ALT 9 Alkaline Phosphatase 55 Total Protein 6.9 Albumin 3.4 L Urine Color Yellow Urine Appearance Clear Urine pH 5.5 Ur Specific [place] 1.020 Urine Protein Negative Urine Glucose (UA) Negative Urine Ketones Negative Urine Blood Negative Urine Nitrite Positive H Ur Leukocyte Esterase Small (1+) H Urine RBC 0-2 Urine WBC 21-50 H Ur Squamous Epith Cells 3-5 Urine Bacteria 4+ Hyaline Casts 0-2 Influenza Type A (PCR) NEGATIVE Influenza Type B (PCR) NEGATIVE RSV RNA Qual (PCR) NEGATIVE SARS-CoV-2 RNA (RT-PCR) NEGATIVE 08/22/24 02:32 MCV MCH MCHC RDW Plt Count MPV Immature Gran % (Auto) Neut % (Auto) Lymph % (Auto) [place] % (Auto) Eos % (Auto) Baso % (Auto) Lymph # (Auto) [place] # (Auto) Eos # (Auto) Baso # (Auto) Abs Immat Gran (auto) Absolute Neuts (auto) Absolute Nucleated RBC Nucleated RBC % (auto) Anion Gap Estim Creat Clear Calc Estimated GFR Random Glucose Lactic Acid 1.0 Calcium Total Bilirubin AST ALT Alkaline Phosphatase Total Protein Albumin Urine Color Urine Appearance Urine pH Ur Specific [place] Urine Protein Urine Glucose (UA) Urine Ketones Urine Blood Urine Nitrite Ur Leukocyte Esterase Urine RBC Urine WBC Ur Squamous Epith Cells Urine Bacteria Hyaline Casts Influenza Type A (PCR) Influenza Type B (PCR) RSV RNA Qual (PCR) SARS-CoV-2 RNA (RT-PCR) Assessment and Plan (1) Acute metabolic encephalopathy: Status: Acute (2) Acute UTI: Status: Acute (3) Left leg cellulitis: Status: Acute Plan This is a 84-year-old female with pertinent history of dementia, unspecified, hypothyroidism, hypertension, rqk-fjwcdug-ubxryhscs diabetes mellitus, mixed hyperlipidemia who presents to the emergency department for evaluation of back pain and urinary urgency. #. Acute metabolic encephalopathy due to acute UTI: Will admit patient with IV ceftriaxone. Monitor mentation. Urine culture obtained. No sepsis #. Left lower extremity cellulitis: Initiating vancomycin. Monitor for improvement #. ?Sigmoid diverticulitis: Tolerating p.o. diet. Add Flagyl to ceftriaxone. #. Mha-yisrcet-rdascjqzk diabetes mellitus with hyperglycemia: Initiating basal plus insulin regimen #. Dementia, unspecified: Maintain sleep-wake cycle #. Progressive debility and weakness: Consulting Physical therapy to evaluate and treat #. Hypertension: Continue home antihypertensives #. Hypothyroidism: On Synthroid Med rec pending DVT prophylaxis: Lovenox DNR/DNI. Discussed with patient at bedside Admit as inpatient and will require two night minimum hospital stay for IV antibiotics (as above), which is not possible in a lesser acute setting. Quality Stroke Does the patient have a stroke diagnosis?: No VTE Prior VTE?: No VTE Risk Level:: Medical - moderate - high VTE Device Contraindication: Treatment Not Indicated VTE Drug Contraindication: N/A - Med Ordered
--- NOTE | 2024-08-22 03:49 | PC.NURSE ---
pt placed in hospital bed d/t confusion and pt is adamant she needs to leave. multiple attempts of redirecting/reeducation. bed alarm on for safety. currently resting comfortably in bed.
[2024-08-22 04:31] LABS: Glucose, Whole Blood 186 mg/dL (60-115)
[2024-08-22] MEDS: cefTRIAXone sodium 1 GM VIAL IVPUSH (04:51)
[2024-08-22] MEDS: Insulin Glargine,Hum.rec.anlog 100 UNIT/ML 10 ML VIAL 15 UNIT SUBCUT ×2 (04:51→20:59)
[2024-08-22 05:09] LABS: Hemoglobin 9.9 g/dl (12.0-16.0); Mean Corpuscular Volume 86.4 fL (80.0-98.0); PLT CLUMP 1; Red Cell Distribution Width 13.7 % (11.0-16.0); SCAN SMEAR FLAG 1
[2024-08-22 05:10] LABS: Basophils Absolute Auto 0.1 X10*3/uL (0.0-0.2); Basophils Percent Auto 0.8 % (0-2); Eosinophils Absolute Auto 0.4 X10*3/uL (0.0-0.4); Eosinophils Percent Auto 4.5 % (0-4); Hematocrit 30.5 % (37.0-47.0); Imm Gran Abs Auto 0.03 X10*3/uL (0.00-0.03); Imm Gran Pct Auto 0.3 % (0.0-0.4); Lymphocytes Percent Auto 30.2 % (20-40); MANUAL DIFF FLAG SCAN; Mean Corpuscular HGB Conc 32.5 g/dl (31.0-35.0); Mean Platelet Volume 10.3 fL (9.4-12.3); Monocytes Absolute Auto 0.9 X10*3/uL (0.1-1.2); Monocytes Percent Auto 8.9 % (2-11); Neutrophils Absolute Auto 5.5 x10*3/uL (2.0-8.3); Neutrophils Percent Auto 55.3 % (45-73); Red Blood Count 3.53 X10*6/uL (4.20-5.50)
[2024-08-22 05:12] LABS: White Blood Count 9.9 X10*3/uL (4.8-10.8)
[2024-08-22 05:13] VITALS: RESP 18
[2024-08-22 05:20] LABS: Anion Gap 11 (12-20); Blood Urea Nitrogen 31 mg/dL (9-16); Calcium 8.7 mg/dL (8.4-10.2); Carbon Dioxide 21 mmol/L (22-29); Chloride 110 mmol/L (96-108); Creatinine Clr Calc Pharmacy 66.6; Estimated Glomerular Filt Rate > 60; Glucose Random 193 mg/dL (60-115); Sodium 138 mmol/L (135-145)
[2024-08-22 05:40] LABS: Platelet Count 209 X10*3/uL (160-400); SLIDE REVIEW VERIFIED
[2024-08-22 06:36] VITALS: BP 144/55; PULSE 64; RESP 12; TEMP 37.1; O2SAT 97
[2024-08-22 07:07] VITALS: BP 153/61; PULSE 62; RESP 12; O2SAT 99
[2024-08-22 07:27] LABS: Glucose, Whole Blood 164 mg/dL (60-115)
--- NOTE | 2024-08-22 08:23 | PC.NURSE ---
Pt ate breakfast, currenly working with PT at this time.
[2024-08-22] MEDS: metroNIDAZOLE/NS 500 MG/100 ML PIGGYBACK 100 MG IV (08:34)
[2024-08-22] MEDS: Insulin Lispro 100 UNIT/ML 3 ML VIAL SUBCUT ×4 (08:34→20:58)
[2024-08-22] MEDS: Enoxaparin Sodium 40 MG/0.4 ML SYRINGE SUBCUT (08:34)
[2024-08-22] MEDS: 0.9 % Sodium Chloride Flush 3 ML SYRINGE IVFLUSH ×2 (08:36→16:20)
--- NOTE | 2024-08-22 09:07 | PC.NURSE ---
Med list received from pt's HCP At[facility]. List faxed to pharmacy and entered into computer. Jenelle SANDRA made aware of completed med rec so pt's home meds can be ordered.
--- NOTE | 2024-08-22 09:18 | PHA.PROG ---
Admission Date/Time: August 22, 2024 03:31 Indication: SKIN Weight in k.1 kg Adjusted body weight in Kg: [place] body weight in Kg: Obesity Dosing Indication % IBW: Serum Creatinine - Last 168 Hours 08/21/24 08/22/24 23:46 04:50 Creatinine 0.77 0.71 Estimated CrCl and GFR - Last 168 Hours 08/21/24 08/22/24 23:46 04:50 Estim Creat Clear Calc 61.4 66.6 Estimated GFR > 60 > 60 Vancomycin Loading Dose: 2000 MG Current Vancomycin Dosing Regimen: 750 MG Q12H Vancomycin Monitoring using AUC goal of 400 - 600 range with trough as surrogate marker: SWE=[id number] TROUGH=14 Date and Time for next Vancomycin Level to be drawn: 08/23/24 @1300 Pharmacist Comments on Vancomycin Plan: Vancomycin dosing will take advantage of [employer] as a clinical decision support tool that uses Bayesian modeling to calculate individual patient's pharmacokinetic parameters and forecast the patient's drug concentration time course with the target goal AUC 24 range of 400 - 600 mg/L/hr.
--- NOTE | 2024-08-22 10:00 | PHA.MEDREC ---
Addendum entered by Denae Greco RPh 08/22/24 10:13: Reviewed by [facility]. Original Note: Pharmacy Consult ? Medication Reconciliation Pharmacy has reviewed the medication reconciliation done by nursing. Utilized the list from LISA Srivastava.
--- NOTE | 2024-08-22 11:07 | MHC.CM.PN ---
PPT LIVES ALONE IS INDEPENDENT HAD NO SERVICES HAS OWN RIDE HOME DC PLAN HOME NO SERVICES
--- NOTE | 2024-08-22 12:17 | PC.NURSE ---
Assumed care of this patient at 1100, patient incontinent of urine, walked to BR and changed by EDT Shefali. Bed linens replaced, patient repositioned, sitting quietly on bed at this time. Patient repetitive and confused, easily reoriented, waiting for bed assignment at this time.
[2024-08-22 12:28] LABS: Glucose, Whole Blood 158 mg/dL (60-115)
--- NOTE | 2024-08-22 13:08 | PM.EVENT ---
Event Note Date of Service: 08/22/24 Event Note: This is a 84-year-old female with pertinent history of dementia, unspecified, hypothyroidism, hypertension, sml-kvqihkg-isyhbfeof diabetes mellitus, mixed hyperlipidemia who presents to the emergency department for evaluation of back pain and urinary urgency. Acute metabolic encephalopathy due to acute UTI IV ceftriaxone. Monitor mentation. Urine culture obtained. No sepsis Left lower extremity cellulitis Initiating vancomycin. Monitor for improvement Mild Sigmoid diverticulitis Tolerating p.o. diet. GI consultation Ndi-hjsaghb-taomsvbfi diabetes mellitus 2 with hyperglycemia ss, ada diet normocytic anemia no bleeding stable HH Dementia, unspecified Maintain sleep-wake cycle Progressive debility and weakness Physical therapy to evaluate and treat Hypertension Continue home antihypertensives Hypothyroidism On Synthroid DVT prophylaxis: Lovenox DNR/DNI. Discussed with patient at bedside Time Spent With Patient Time: Total time managing care of this patient today ____ minutes.
--- NOTE | 2024-08-22 14:52 | PC.NURSE ---
Patient and HCP @ bedside unhappy they are still boarding in the lang, apologized for the delay, HCP demanding to speak to the provider. Jenelle provider made aware, provided HCP's phone number, Jenelle to call when available.
[2024-08-22] MEDS: vancomycin HCL 750 MG in 0.9 % Sodium Chloride 250 ML 265 MG IV (16:20)
[2024-08-22 17:09] LABS: Glucose, Whole Blood 160 mg/dL (60-115)
[2024-08-22 17:38] VITALS: PULSE 72; RESP 18; O2SAT 100
[2024-08-22 19:29] VITALS: BP 146/56; PULSE 71; RESP 18; TEMP 37; O2SAT 100
--- NOTE | 2024-08-22 19:37 | MHC.EDTECH ---
checked patients vitals, patient asked for some warm blankets. Patient visibly comfortable at this time.
--- NOTE | 2024-08-22 20:26 | PC.NURSE ---
Patient complaining of 10/10 back pain, messaged doctor per patient request for lidocaine patch. MD ordered.
[2024-08-22] MEDS: Lidocaine 4 % Patch ADH..PATCH 1 PATCH TRANSDERMA (20:33)
[2024-08-22 20:51] LABS: Glucose, Whole Blood 200 mg/dL (60-115)
[2024-08-22] MEDS: Melatonin 3 MG TABLET 6 MG PO (21:37)
[2024-08-22] MEDS: QUEtiapine Fumarate 25 MG TABLET PO (21:37)
[2024-08-23] VITALS (7 sets, daily range): BP systolic 109–139; BP diastolic 53–62; PULSE 65–81; RESP 16–18; TEMP 36.3–36.8; O2SAT 96–99
[2024-08-23] MEDS: vancomycin HCL 750 MG in 0.9 % Sodium Chloride 250 ML 265 MG IV (02:06)
[2024-08-23] MEDS: cefTRIAXone sodium 1 GM VIAL IVPUSH (03:16)
[2024-08-23] MEDS: Levothyroxine Sodium 75 MCG TABLET PO (06:43)
[2024-08-23 06:56] LABS: Vancomycin Random 18.7 mcg/mL (15-20)
[2024-08-23 06:57] LABS: Creatinine Clr Calc Pharmacy 59.8; Estimated Glomerular Filt Rate > 60
[2024-08-23 08:16] LABS: Glucose, Whole Blood 161 mg/dL (60-115)
[2024-08-23] MEDS: Insulin Lispro 100 UNIT/ML 3 ML VIAL SUBCUT ×2 (08:45→16:24)
[2024-08-23] MEDS: Aspirin Enteric Coated 81 MG TABLET.DR PO (09:03)
[2024-08-23] MEDS: Losartan Potassium 50 MG TABLET 100 MG PO (09:04)
[2024-08-23] MEDS: Metoprolol Succinate ER 25 MG TAB.ER.24H PO (09:04)
[2024-08-23] MEDS: Atorvastatin Calcium 10 MG TABLET PO (09:04)
[2024-08-23] MEDS: Enoxaparin Sodium 40 MG/0.4 ML SYRINGE SUBCUT (09:04)
[2024-08-23] MEDS: 0.9 % Sodium Chloride Flush 3 ML SYRINGE IVFLUSH ×2 (09:05→14:59)
--- NOTE | 2024-08-23 10:32 | CONS_ITS ---
DATE OF SERVICE: 08/23/2024 REASON FOR CONSULTATION: Diverticulitis. HISTORY OF PRESENT ILLNESS: The patient is an 84-year-old woman who was admitted to the hospital after presenting to the emergency room with complaints of back pain and urinary urgency. As part of her evaluation she underwent CT scanning, which is reviewed. This is interpreted as showing changes in the sigmoid consistent with early diverticulitis. She has been treated with antibiotics. She describes chronic and intermittent left lower quadrant pain and a previous history of diverticular disease. She believes she underwent colonoscopy many years ago, but is unsure on the details. She is a vague historian. She has no records of recent colonoscopy in the hospital system. Since admission she has had no reported rectal bleeding, nausea, vomiting, fevers, or chills. PAST MEDICAL HISTORY: 1. Diabetes mellitus. 2. Hypothyroidism. 3. Hypertension. 4. Fibromyalgia. 5. Sleep apnea. 6. Asthma. 7. Memory impairment. 8. Hyperlipidemia. CURRENT MEDICATIONS: Her current medication list is reviewed in the chart. ALLERGIES: THERE ARE MULTIPLE ALLERGIES THAT ARE ALSO REVIEWED. PAST SURGICAL HISTORY: Includes dental extraction, hip replacement left, cholecystectomy, and thyroidectomy. REVIEW OF SYSTEMS: This is not reliably obtainable. PHYSICAL EXAMINATION: GENERAL: Shows a pleasant elderly female, in no acute distress. VITAL SIGNS: Reviewed in electronic medical record and are stable. SKIN: Anicteric. HEENT: No scleral icterus. NECK: Without lymphadenopathy or thyromegaly. LUNGS: Clear. HEART: Regular rate and rhythm. S1, S2. No murmur. ABDOMEN: Soft. Bowel sounds are present. There is no tenderness to palpation over the left lower quadrant. EXTREMITIES: Trace edema. LABORATORY DATA AND IMAGING STUDIES: Reviewed. IMPRESSION: Uncomplicated mild sigmoid diverticulitis. I agree with treating her with antibiotics, these can be continued for 7 days and discontinued. We will attempt to review any outside records when they become available. Colonoscopy could be considered as an outpatient once her diverticulitis has resolved; however, based on her comorbid conditions, it would be optional. Thanks for asking me to see her. I will follow her in the hospital with you. MD MATT Wasserman/ELISE / [phone]
--- NOTE | 2024-08-23 11:08 | PC.NURSE ---
Pt received from ER . Pt noted to have a red full body rash arms back anterior neck . RUBY Joy notified and at bed side to evaluated pt
[2024-08-23] MEDS: Loratadine 10 MG TABLET PO (11:16)
[2024-08-23 11:26] LABS: Glucose, Whole Blood 135 mg/dL (60-115)
--- NOTE | 2024-08-23 13:09 | HO.PM.IMPN ---
Subjective Subjective Date of Service: 08/23/24 Interval History: seen and examined this morning follow up for UTI, cellulitis and possible diverticulitis awake, alert, confused; reporting some pain LLQ noted to have rash when arrived to floor Review of Systems Review of Systems: Yes all other systems are reviewed and are negative Constitutional Constitutional: Denies fever(s) Physical Exam Vital Signs: Vital Signs: Last Vital Signs Temp 97.5 F 08/23/24 10:40 Pulse 67 08/23/24 10:40 Resp 16 08/23/24 10:40 BP 124/55 L 08/23/24 10:40 Pulse Ox 97 08/23/24 10:40 O2 Del Method Room Air 08/23/24 10:40 BMI result Body Mass Index 37.9 Const: General: alert and awake Orientation/consciousness: oriented to person Resp: Effort & Inspection: normal respiratory effort, able to speak in complete sentences, no respiratory distress and no use of accessory muscles Cardio: Rate: regular rate GI: Inspection: No distended Palpation (GI): Soft to palpation Skin: Other: mild erythema noted lower extremities L>R Neuro: General: oriented to person, moves all extremities and CN's II-XI intact bilaterally Objective Data Active Medications Acetaminophen (Acetaminophen 325 Mg Tablet) 650 mg PO Q6H PRN PRN Reason: Pain, Mild 1-3,fever,headache Aspirin (Aspirin Enteric Coated 81 Mg Tablet.) 81 mg PO DAILY [facility] Last Admin: 08/23/24 09:03 Dose: 81 mg Documented By: GRACE Atorvastatin Calcium (Atorvastatin Calcium 10 Mg Tablet) 10 mg PO DAILY [facility] Last Admin: 08/23/24 09:04 Dose: 10 mg Documented By: GRACE Calcium Carbonate (Calcium Carbonate 750 Mg Tab.Chew) 750 mg PO Q4H PRN PRN Reason: Heartburn Dextrose (Dextrose 50 % 25 Gm/50 Ml Syringe) 25 gm IVPUSH Q15M PRN; Protocol PRN Reason: per Hypoglycemia Standing Ord. Enoxaparin Sodium (Enoxaparin Sodium 40 Mg/0.4 Ml Syringe) 40 mg SUBCUT Q24H [facility] Last Admin: 08/23/24 09:04 Dose: 40 mg Documented By: GRACE Glucose (Glucose Gel 15 Gm Gel..Gram.) 15 gm PO Q15M PRN; Protocol PRN Reason: per Hypoglycemia Standing Ord. Insulin Glargine (Insulin Glargine,Hum.Rec.Anlog 100 Unit/Ml 10 Ml Vial) 15 unit SUBCUT BEDTIME [facility] Last Admin: 08/22/24 20:59 Dose: 15 unit Documented By: SARITA Insulin Human Lispro (Insulin Lispro 100 Unit/Ml 3 Ml Vial) 0 unit SUBCUT QIDACHS [facility]; Protocol Last Admin: 08/23/24 11:13 Dose: Not Given Documented By: TOMAS Non-Admin Reason: No Insulin Coverage Levothyroxine Sodium (Levothyroxine Sodium 75 Mcg Tablet) 75 mcg PO DAILY@0600 [facility] Last Admin: 08/23/24 06:43 Dose: 75 mcg Documented By: SARITA Losartan Potassium (Losartan Potassium 50 Mg Tablet) 100 mg PO DAILY [facility]; Protocol Last Admin: 08/23/24 09:04 Dose: 100 mg Documented By: GRACE Magnesium Hydroxide (Milk Of Magnesia 30 Ml Oral.Susp) 30 ml PO DAILY PRN PRN Reason: Constipation Melatonin (Melatonin 3 Mg Tablet) 6 mg PO BEDTIME PRN PRN Reason: Insomnia Last Admin: 08/22/24 21:37 Dose: 6 mg Documented By: SARITA Metoprolol Succinate (Metoprolol Succinate Er 25 Mg Tab.Er.24h) 25 mg PO DAILY [facility]; Protocol Last Admin: 08/23/24 09:04 Dose: 25 mg Documented By: GRACE Nitroglycerin (Nitroglycerin 0.4 Mg Tab.Subl) 0.4 mg SUBLINGUAL Q5M PRN PRN Reason: Chest Pain Nystatin (Nystatin Powder 15 Gm Bottle) 1 appl TOPICAL BID [facility]; Protocol Last Admin: 08/23/24 11:14 Dose: Not Given Documented By: TOMAS Non-Admin Reason: Med Not Available Ondansetron HCl (Ondansetron Hcl 4 Mg/2 Ml Vial) 4 mg IVPUSH Q8H PRN PRN Reason: Nausea and Vomiting Quetiapine Fumarate (Quetiapine Fumarate 25 Mg Tablet) 25 mg PO BEDTIME [facility] Last Admin: 08/22/24 21:37 Dose: 25 mg Documented By: SARITA Sodium Chloride (0.9 % Sodium Chloride Flush 3 Ml Syringe) 3 ml IVFLUSH QSHIFT [facility] Last Admin: 08/23/24 09:05 Dose: 3 ml Documented By: GRACE Labs 08/22/24 04:50 08/23/24 06:40 Labs: Laboratory Results - last 24 hr 08/22/24 08/22/24 08/23/24 17:03 20:43 06:40 Estim Creat Clear Calc 59.8 Estimated GFR > 60 POC Glucose 160 H 200 H Random Vancomycin 18.7 08/23/24 08/23/24 08:09 11:08 Estim Creat Clear Calc Estimated GFR POC Glucose 161 H 135 H Random Vancomycin Microbiology Microbiology Results: Microbiology 08/21/24 Unknown Urine Culture - Preliminary Urine clean catch - Clean Catch Midstream Gram negative jessica 08/22/24 02:32 Blood Culture - Preliminary Blood - Venous No growth after 24 hours. 08/22/24 02:32 Blood Culture - Preliminary Blood - Venous No growth after 24 hours. Assessment and Plan (1) Cellulitis: Status: Acute (2) Metabolic encephalopathy: Status: Acute Plan This is a 84-year-old female with pertinent history of dementia, unspecified, hypothyroidism, hypertension, rxv-fixsexl-lohwmhaue diabetes mellitus, mixed hyperlipidemia who presents to the emergency department for evaluation of back pain and urinary urgency. Acute metabolic encephalopathy due to acute UTI on a background of unspecified dementia initially treated with IV ceftriaxone, developed a rash, unclear if related, but will stop and switch to levaquin Urine culture growing GNR - follow final results Monitor mentation, unclear baseline No sepsis ID consult pending, given multiple infections, PCN allergy and possible rash due to abx Left lower extremity cellulitis stop vanco; levaquin started as above Monitor for improvement Mild Sigmoid diverticulitis Tolerating p.o. diet. seen by GI - continue abx for 7 days and outpatient follow up with GI Rwu-atjmltl-qlnhneptd diabetes mellitus 2 with hyperglycemia ss, ada diet lantus during hospital stay, BS controlled hold glipizide, metformin check hba1c normocytic anemia no bleeding stable HH Dementia, unspecified Maintain sleep-wake cycle Progressive debility and weakness Physical therapy - possible D/c home with services depending on maintining mobility during hospitalization Hypertension Continue home metoprolol, losartan Hypothyroidism On Synthroid DVT prophylaxis: Lovenox DNR/DNI Requires ongoing inpatient stay for management of multiple infections, specialist evaluation, close monitoring Quality Stroke Does the patient have a stroke diagnosis?: No VTE Prior VTE?: No VTE Risk Level:: Medical - moderate - high VTE Device Contraindication: Treatment Not Indicated VTE Drug Contraindication: N/A - Med Ordered
[2024-08-23 13:42] LABS: Vancomycin Trough 14.2 mcg/mL (10.0-20.0)
[2024-08-23] MEDS: metroNIDAZOLE/NS 500 MG/100 ML PIGGYBACK 100 MG IV ×2 (14:55→21:12)
[2024-08-23 16:04] LABS: Glucose, Whole Blood 200 mg/dL (60-115)
[2024-08-23 20:21] LABS: Glucose, Whole Blood 142 mg/dL (60-115)
[2024-08-23] MEDS: QUEtiapine Fumarate 25 MG TABLET PO (21:04)
[2024-08-23] MEDS: Insulin Glargine,Hum.rec.anlog 100 UNIT/ML 10 ML VIAL 15 UNIT SUBCUT (21:05)
[2024-08-23] MEDS: Nystatin Powder 15 GM BOTTLE 1 APPL TOPICAL (21:06)
[2024-08-24] MEDS: Levothyroxine Sodium 75 MCG TABLET PO (06:08)
[2024-08-24] MEDS: metroNIDAZOLE/NS 500 MG/100 ML PIGGYBACK 100 MG IV ×3 (06:12→21:58)
[2024-08-24 06:13] LABS: Anion Gap 10 (12-20); Blood Urea Nitrogen 24 mg/dL (9-16); Calcium 8.5 mg/dL (8.4-10.2); Carbon Dioxide 25 mmol/L (22-29); Chloride 107 mmol/L (96-108); Creatinine Clr Calc Pharmacy 59.1; Estimated Glomerular Filt Rate > 60; Glucose Random 145 mg/dL (60-115); Potassium 4.2 mmol/L (3.3-5.1); Sodium 138 mmol/L (135-145)
[2024-08-24 07:06] LABS: Estimated Average Glucose 183 mg/dL; Hemoglobin A1C 180.4307 umol/L; Total Hemoglobin (HGBA1C) 2840.6956 umol/L
[2024-08-24 07:15] VITALS: BP 112/51; PULSE 86; RESP 16; TEMP 36.8; O2SAT 96
[2024-08-24 07:25] LABS: Glucose, Whole Blood 137 mg/dL (60-115)
[2024-08-24] MEDS: Aspirin Enteric Coated 81 MG TABLET.DR PO (07:54)
[2024-08-24] MEDS: Losartan Potassium 50 MG TABLET 100 MG PO (07:54)
[2024-08-24] MEDS: Atorvastatin Calcium 10 MG TABLET PO (07:54)
[2024-08-24] MEDS: Metoprolol Succinate ER 25 MG TAB.ER.24H PO (07:54)
[2024-08-24] MEDS: 0.9 % Sodium Chloride Flush 3 ML SYRINGE IVFLUSH ×3 (07:56→21:53)
[2024-08-24] MEDS: Enoxaparin Sodium 40 MG/0.4 ML SYRINGE SUBCUT (07:58)
[2024-08-24] MEDS: Nystatin Powder 15 GM BOTTLE 1 APPL TOPICAL ×2 (08:00→21:59)
[2024-08-24] MEDS: Acetaminophen 325 MG TABLET 650 MG PO (09:35)
[2024-08-24 11:17] LABS: Glucose, Whole Blood 175 mg/dL (60-115)
--- NOTE | 2024-08-24 11:28 | MHC.CM.PN ---
Per MD rounds patient not medically cleared for dc. CM will continue to follow.
[2024-08-24] MEDS: Insulin Lispro 100 UNIT/ML 3 ML VIAL SUBCUT ×2 (12:21→21:50)
[2024-08-24] MEDS: diphenhydrAMINE HCL 25 MG CAPSULE PO (12:32)
--- NOTE | 2024-08-24 14:42 | P.PNGI_ITS ---
Subjective Subjective Date of Service: 08/24/24 Interval History: no complaits of abd pain Critical Care Time (minutes): 0 Physical Exam 2 Vital Signs: Vital Signs: Last Vital Signs Temp 98.3 F 08/24/24 07:15 Pulse 86 08/24/24 07:15 Resp 16 08/24/24 07:15 BP 112/51 L 08/24/24 07:15 Pulse Ox 96 08/24/24 07:15 O2 Del Method Room Air 08/24/24 07:15 BMI result Body Mass Index 37.9 Cardio: Other: abd is soft and nontender Objective Data Labs 08/22/24 04:50 08/24/24 05:29 Microbiology Microbiology Results: Microbiology 08/21/24 Unknown Urine clean catch - Clean Catch Midstream Urine Culture - Final Escherichia coli 08/22/24 02:32 Blood - Venous Blood Culture - Preliminary No growth after 48 hours. 08/22/24 02:32 Blood - Venous Blood Culture - Preliminary No growth after 48 hours. Procedures Date of Service Date of Service: 08/24/24 Progress Note: A&P Assessment and plan (1) Diverticulitis: Status: Acute Assessment and Plan: appears stable on abx tolerating diet. continue present rx Time Spent With Patient Time: Total time managing care of this patient today ____ minutes. Quality Stroke Does the patient have a stroke diagnosis?: No VTE Prior VTE?: No VTE Risk Level:: Medical - moderate - high VTE Device Contraindication: Treatment Not Indicated VTE Drug Contraindication: N/A - Med Ordered
[2024-08-24 15:24] VITALS: BP 127/73; PULSE 97; RESP 16; TEMP 36.5; O2SAT 95
[2024-08-24 16:20] LABS: Glucose, Whole Blood 131 mg/dL (60-115)
--- NOTE | 2024-08-24 16:57 | P.PNIM_ITS ---
Subjective Subjective Date of Service: 08/24/24 Interval History: seen and examined this morning follow up for UTI, cellulitis, diverticulitis has body wide rash which is itchy; no hives less confused this am, but still forgetful Review of Systems Review of Systems: Yes all other systems are reviewed and are negative Constitutional Constitutional: Denies chills and Denies fever(s) Physical Exam 2 Vital Signs: Vital Signs: Last Vital Signs Temp 97.7 F 08/24/24 15:24 Pulse 97 08/24/24 15:24 Resp 16 08/24/24 15:24 BP 127/73 08/24/24 15:24 Pulse Ox 95 08/24/24 15:24 O2 Del Method Room Air 08/24/24 15:24 BMI result Body Mass Index 37.9 Const: General: cooperative, comfortable, no acute distress, alert and awake Orientation/consciousness: oriented to person and oriented to place Resp: Effort & Inspection: normal respiratory effort, able to speak in complete sentences, no respiratory distress and no use of accessory muscles Cardio: Rate: regular rate GI: Inspection: No distended Palpation (GI): Soft to palpation Skin: Other: diffuse erythema to back, b/l arms, under chin and b/l ears; no hives, no lesions; cellulitic changes of legs improving Neuro: General: oriented to person, oriented to place, moves all extremities and CN's II-XI intact bilaterally Objective Data Active Medications Acetaminophen (Acetaminophen 325 Mg Tablet) 650 mg PO Q6H PRN PRN Reason: Pain, Mild 1-3,fever,headache Last Admin: 08/24/24 09:35 Dose: 650 mg Documented By: NESTOR Aspirin (Aspirin Enteric Coated 81 Mg Tablet.) 81 mg PO DAILY [facility] Last Admin: 08/24/24 07:54 Dose: 81 mg Documented By: NESTOR Atorvastatin Calcium (Atorvastatin Calcium 10 Mg Tablet) 10 mg PO DAILY [facility] Last Admin: 08/24/24 07:54 Dose: 10 mg Documented By: NESTOR Calamine (Calamine/Zinc Oxide Lotion 177 Ml Bottle) 1 appl TOPICAL Q3H PRN; Protocol PRN Reason: Itching Calcium Carbonate (Calcium Carbonate 750 Mg Tab.Chew) 750 mg PO Q4H PRN PRN Reason: Heartburn Dextrose (Dextrose 50 % 25 Gm/50 Ml Syringe) 25 gm IVPUSH Q15M PRN; Protocol PRN Reason: per Hypoglycemia Standing Ord. Diphenhydramine HCl (Diphenhydramine Hcl 25 Mg Capsule) 25 mg PO Q6H PRN PRN Reason: Itching Last Admin: 08/24/24 12:32 Dose: 25 mg Documented By: NESTOR Enoxaparin Sodium (Enoxaparin Sodium 40 Mg/0.4 Ml Syringe) 40 mg SUBCUT Q24H [facility] Last Admin: 08/24/24 07:58 Dose: 40 mg Documented By: NESTOR Glucose (Glucose Gel 15 Gm Gel..Gram.) 15 gm PO Q15M PRN; Protocol PRN Reason: per Hypoglycemia Standing Ord. Metronidazole (Flagyl) 500 mg in 100 mls @ 100 mls/hr IV Q8H [facility] Last Infusion: 08/24/24 13:32 Dose: Infused Documented By: NESTOR Insulin Glargine (Insulin Glargine,Hum.Rec.Anlog 100 Unit/Ml 10 Ml Vial) 15 unit SUBCUT BEDTIME [facility] Last Admin: 08/23/24 21:05 Dose: 15 unit Documented By: SERENA Insulin Human Lispro (Insulin Lispro 100 Unit/Ml 3 Ml Vial) 0 unit SUBCUT QIDACHS [facility]; Protocol Last Admin: 08/24/24 16:33 Dose: Not Given Documented By: NESTOR Non-Admin Reason: No Insulin Coverage Levothyroxine Sodium (Levothyroxine Sodium 75 Mcg Tablet) 75 mcg PO DAILY@0600 [facility] Last Admin: 08/24/24 06:08 Dose: 75 mcg Documented By: SERENA Losartan Potassium (Losartan Potassium 50 Mg Tablet) 100 mg PO DAILY [facility]; Protocol Last Admin: 08/24/24 07:54 Dose: 100 mg Documented By: NESTOR Magnesium Hydroxide (Milk Of Magnesia 30 Ml Oral.Susp) 30 ml PO DAILY PRN PRN Reason: Constipation Melatonin (Melatonin 3 Mg Tablet) 6 mg PO BEDTIME PRN PRN Reason: Insomnia Last Admin: 08/22/24 21:37 Dose: 6 mg Documented By: SARITA Metoprolol Succinate (Metoprolol Succinate Er 25 Mg Tab.Er.24h) 25 mg PO DAILY [facility]; Protocol Last Admin: 08/24/24 07:54 Dose: 25 mg Documented By: NESTOR Nitroglycerin (Nitroglycerin 0.4 Mg Tab.Subl) 0.4 mg SUBLINGUAL Q5M PRN PRN Reason: Chest Pain Nystatin (Nystatin Powder 15 Gm Bottle) 1 appl TOPICAL BID [facility]; Protocol Last Admin: 08/24/24 08:00 Dose: 1 appl Documented By: NESTOR Ondansetron HCl (Ondansetron Hcl 4 Mg/2 Ml Vial) 4 mg IVPUSH Q8H PRN PRN Reason: Nausea and Vomiting Quetiapine Fumarate (Quetiapine Fumarate 25 Mg Tablet) 25 mg PO BEDTIME [facility] Last Admin: 08/23/24 21:04 Dose: 25 mg Documented By: SERENA Sodium Chloride (0.9 % Sodium Chloride Flush 3 Ml Syringe) 3 ml IVFLUSH QSHIFT [facility] Last Admin: 08/24/24 16:34 Dose: 3 ml Documented By: NESTOR Labs 08/22/24 04:50 08/24/24 05:29 Labs: Laboratory Results - last 24 hr 08/23/24 08/24/24 08/24/24 20:15 05:29 07:13 Anion Gap 10 L Estim Creat Clear Calc 59.1 Estimated GFR > 60 POC Glucose 142 H 137 H Random Glucose 145 H Estimat Average Glucose 183 Hemoglobin A1c % 8.0 H Calcium 8.5 08/24/24 08/24/24 11:13 16:13 Anion Gap Estim Creat Clear Calc Estimated GFR POC Glucose 175 H 131 H Random Glucose Estimat Average Glucose Hemoglobin A1c % Calcium Microbiology Microbiology Results: Microbiology 08/21/24 Unknown Urine Culture - Final Urine clean catch - Clean Catch Midstream Escherichia coli 08/22/24 02:32 Blood Culture - Preliminary Blood - Venous No growth after 48 hours. 08/22/24 02:32 Blood Culture - Preliminary Blood - Venous No growth after 48 hours. Assessment and Plan (1) Cellulitis: Status: Acute (2) Diverticulitis: Status: Acute Plan This is a 84-year-old female with pertinent history of dementia, unspecified, hypothyroidism, hypertension, cza-eusbjjv-bhezdgcar diabetes mellitus, mixed hyperlipidemia who presents to the emergency department for evaluation of back pain and urinary urgency. Acute metabolic encephalopathy due to acute UTI on a background of unspecified dementia initially treated with IV ceftriaxone, developed a rash, unclear if related, but will stop and switch to levaquin Urine culture growing pansensitive e.coli Monitor mentation, unclear baseline No sepsis ID consult pending, given multiple infections, PCN allergy and possible rash due to abx Left lower extremity cellulitis stop vanco; levaquin started as above Monitor for improvement Mild Sigmoid diverticulitis Tolerating p.o. diet. seen by GI - continue abx for 7 days and outpatient follow up with GI rash less likely drug rash symptomatic treatment, if not improvement with benadryl and topical cream may need low dose steroids Fjo-pjuuyrw-gozysncwz diabetes mellitus 2 with hyperglycemia ss, ada diet lantus during hospital stay, BS controlled hold glipizide, metformin hba1c 8.0 normocytic anemia no bleeding stable HH Dementia, unspecified Maintain sleep-wake cycle Progressive debility and weakness Physical therapy - possible D/c home with services depending on maintining mobility during hospitalization Hypertension Continue home metoprolol, losartan Hypothyroidism On Synthroid DVT prophylaxis: Lovenox DNR/DNI Requires ongoing inpatient stay for management of multiple infections, specialist evaluation, close monitoring Quality Stroke Does the patient have a stroke diagnosis?: No VTE Prior VTE?: No VTE Risk Level:: Medical - moderate - high VTE Device Contraindication: Treatment Not Indicated VTE Drug Contraindication: N/A - Med Ordered
[2024-08-24 20:53] LABS: Glucose, Whole Blood 221 mg/dL (60-115)
[2024-08-24] MEDS: QUEtiapine Fumarate 25 MG TABLET PO (21:50)
[2024-08-24] MEDS: Insulin Glargine,Hum.rec.anlog 100 UNIT/ML 10 ML VIAL 15 UNIT SUBCUT (21:50)
[2024-08-24 23:54] VITALS: BP 114/55; PULSE 67; RESP 17; TEMP 36; O2SAT 99
[2024-08-25] MEDS: Levothyroxine Sodium 75 MCG TABLET PO (06:35)
[2024-08-25] MEDS: metroNIDAZOLE/NS 500 MG/100 ML PIGGYBACK 100 MG IV ×3 (06:54→22:48)
[2024-08-25 06:55] LABS: Creatinine Clr Calc Pharmacy 52.5; Estimated Glomerular Filt Rate 60
[2024-08-25 07:24] VITALS: BP 116/56; PULSE 75; RESP 18; TEMP 36.3; O2SAT 98
[2024-08-25 07:34] LABS: Glucose, Whole Blood 151 mg/dL (60-115)
[2024-08-25] MEDS: Insulin Lispro 100 UNIT/ML 3 ML VIAL SUBCUT ×2 (08:09→11:56)
[2024-08-25] MEDS: 0.9 % Sodium Chloride Flush 3 ML SYRINGE IVFLUSH ×2 (08:09→22:36)
[2024-08-25] MEDS: Losartan Potassium 50 MG TABLET 100 MG PO (08:10)
[2024-08-25] MEDS: Atorvastatin Calcium 10 MG TABLET PO (08:10)
[2024-08-25] MEDS: Enoxaparin Sodium 40 MG/0.4 ML SYRINGE SUBCUT (08:10)
[2024-08-25] MEDS: Aspirin Enteric Coated 81 MG TABLET.DR PO (08:10)
[2024-08-25] MEDS: Nystatin Powder 15 GM BOTTLE 1 APPL TOPICAL ×2 (08:11→22:48)
[2024-08-25] MEDS: Metoprolol Succinate ER 25 MG TAB.ER.24H PO (08:11)
--- NOTE | 2024-08-25 10:51 | P.PNIM_ITS ---
Subjective Subjective Date of Service: 08/25/24 Interval History: seen and examined this morning follow up for UTI, cellulitis, diverticulitis has body wide rash which is itchy; no hives less confused this am, but still forgetful Review of Systems Review of Systems: Yes all other systems are reviewed and are negative Constitutional Constitutional: Denies chills and Denies fever(s) Physical Exam 2 Vital Signs: Vital Signs: Last Vital Signs Temp 97.3 F 08/25/24 07:24 Pulse 75 08/25/24 07:24 Resp 18 08/25/24 07:24 BP 116/56 L 08/25/24 07:24 Pulse Ox 98 08/25/24 07:24 O2 Del Method Room Air 08/25/24 07:24 BMI result Body Mass Index 37.9 Appearing in no acute distress lung sounds are clear to auscultation heart regular rate rhythm, clear S1, S2 positive bowel sounds, abdomen is soft, nontender neuro patient is alert x3, no focal deficits Objective Data Active Medications Acetaminophen (Acetaminophen 325 Mg Tablet) 650 mg PO Q6H PRN PRN Reason: Pain, Mild 1-3,fever,headache Last Admin: 08/24/24 09:35 Dose: 650 mg Documented By: NESTOR Aspirin (Aspirin Enteric Coated 81 Mg Tablet.) 81 mg PO DAILY [facility] Last Admin: 08/25/24 08:10 Dose: 81 mg Documented By: RADHA Atorvastatin Calcium (Atorvastatin Calcium 10 Mg Tablet) 10 mg PO DAILY [facility] Last Admin: 08/25/24 08:10 Dose: 10 mg Documented By: RADHA Calamine (Calamine/Zinc Oxide Lotion 177 Ml Bottle) 1 appl TOPICAL Q3H PRN; Protocol PRN Reason: Itching Calcium Carbonate (Calcium Carbonate 750 Mg Tab.Chew) 750 mg PO Q4H PRN PRN Reason: Heartburn Dextrose (Dextrose 50 % 25 Gm/50 Ml Syringe) 25 gm IVPUSH Q15M PRN; Protocol PRN Reason: per Hypoglycemia Standing Ord. Diphenhydramine HCl (Diphenhydramine Hcl 25 Mg Capsule) 25 mg PO Q6H PRN PRN Reason: Itching Last Admin: 08/24/24 12:32 Dose: 25 mg Documented By: NESTOR Enoxaparin Sodium (Enoxaparin Sodium 40 Mg/0.4 Ml Syringe) 40 mg SUBCUT Q24H [facility] Last Admin: 08/25/24 08:10 Dose: 40 mg Documented By: RADHA Glucose (Glucose Gel 15 Gm Gel..Gram.) 15 gm PO Q15M PRN; Protocol PRN Reason: per Hypoglycemia Standing Ord. Metronidazole (Flagyl) 500 mg in 100 mls @ 100 mls/hr IV Q8H [facility] Last Infusion: 08/25/24 08:09 Dose: Infused Documented By: RADHA Insulin Glargine (Insulin Glargine,Hum.Rec.Anlog 100 Unit/Ml 10 Ml Vial) 15 unit SUBCUT BEDTIME [facility] Last Admin: 08/24/24 21:50 Dose: 15 unit Documented By: SERENA Insulin Human Lispro (Insulin Lispro 100 Unit/Ml 3 Ml Vial) 0 unit SUBCUT QIDACHS [facility]; Protocol Last Admin: 08/25/24 08:09 Dose: 2 unit Documented By: RADHA Levothyroxine Sodium (Levothyroxine Sodium 75 Mcg Tablet) 75 mcg PO DAILY@0600 [facility] Last Admin: 08/25/24 06:35 Dose: 75 mcg Documented By: SERENA Losartan Potassium (Losartan Potassium 50 Mg Tablet) 100 mg PO DAILY [facility]; Protocol Last Admin: 08/25/24 08:10 Dose: 100 mg Documented By: RADHA Magnesium Hydroxide (Milk Of Magnesia 30 Ml Oral.Susp) 30 ml PO DAILY PRN PRN Reason: Constipation Melatonin (Melatonin 3 Mg Tablet) 6 mg PO BEDTIME PRN PRN Reason: Insomnia Last Admin: 08/22/24 21:37 Dose: 6 mg Documented By: SARITA Metoprolol Succinate (Metoprolol Succinate Er 25 Mg Tab.Er.24h) 25 mg PO DAILY [facility]; Protocol Last Admin: 08/25/24 08:11 Dose: 25 mg Documented By: RADHA Nitroglycerin (Nitroglycerin 0.4 Mg Tab.Subl) 0.4 mg SUBLINGUAL Q5M PRN PRN Reason: Chest Pain Nystatin (Nystatin Powder 15 Gm Bottle) 1 appl TOPICAL BID [facility]; Protocol Last Admin: 08/25/24 08:11 Dose: 1 appl Documented By: RADHA Ondansetron HCl (Ondansetron Hcl 4 Mg/2 Ml Vial) 4 mg IVPUSH Q8H PRN PRN Reason: Nausea and Vomiting Quetiapine Fumarate (Quetiapine Fumarate 25 Mg Tablet) 25 mg PO BEDTIME [facility] Last Admin: 08/24/24 21:50 Dose: 25 mg Documented By: SERENA Sodium Chloride (0.9 % Sodium Chloride Flush 3 Ml Syringe) 3 ml IVFLUSH QSHIFT [facility] Last Admin: 08/25/24 08:09 Dose: 3 ml Documented By: RADHA Labs 08/22/24 04:50 08/25/24 06:23 Labs: Laboratory Results - last 24 hr 08/24/24 08/24/24 08/24/24 11:13 16:13 20:49 Hold Purple Top Estim Creat Clear Calc Estimated GFR POC Glucose 175 H 131 H 221 H 08/25/24 08/25/24 06:23 07:29 Hold Purple Top SEE NOTE Estim Creat Clear Calc 52.5 Estimated GFR 60 POC Glucose 151 H Microbiology Microbiology Results: Microbiology 08/21/24 Unknown Urine Culture - Final Urine clean catch - Clean Catch Midstream Escherichia coli Assessment and Plan (1) Cellulitis: Status: Acute (2) Diverticulitis: Status: Acute Plan This is a 84-year-old female with pertinent history of dementia, unspecified, hypothyroidism, hypertension, oby-joiiudw-hxotxcxgx diabetes mellitus, mixed hyperlipidemia who presents to the emergency department for evaluation of back pain and urinary urgency. Acute metabolic encephalopathy due to acute UTI on a background of unspecified dementia initially treated with IV ceftriaxone, developed a rash, unclear if related, but will stop and switch to levaquin Urine culture growing pansensitive e.coli Monitor mentation, unclear baseline No sepsis ID consult pending Left lower extremity cellulitis stop vanco; levaquin started as above Monitor for improvement Mild Sigmoid diverticulitis Tolerating p.o. diet. seen by GI >continue abx for 7 days and outpatient follow up with GI rash less likely drug rash symptomatic treatment, if not improvement with benadryl and topical cream may need low dose steroids Nad-kpzocsp-ogiltthff diabetes mellitus 2 with hyperglycemia ss, ada diet lantus during hospital stay, BS controlled hold glipizide, metformin hba1c 8.0 normocytic anemia no bleeding stable HH Dementia, unspecified Maintain sleep-wake cycle Progressive debility and weakness Physical therapy - possible D/c home with services depending on maintining mobility during hospitalization Hypertension Continue home metoprolol, losartan Hypothyroidism On Synthroid DVT prophylaxis: Lovenox attending Dr. Haro DNR/DNI Requires ongoing inpatient stay for management of multiple infections, specialist evaluation, close monitoring Quality Stroke Does the patient have a stroke diagnosis?: No VTE Prior VTE?: No VTE Risk Level:: Medical - moderate - high VTE Device Contraindication: Treatment Not Indicated VTE Drug Contraindication: N/A - Med Ordered
[2024-08-25 11:13] LABS: Glucose, Whole Blood 238 mg/dL (60-115)
[2024-08-25 15:24] VITALS: BP 119/55; PULSE 65; RESP 16; TEMP 36.1; O2SAT 97
[2024-08-25 16:44] LABS: Glucose, Whole Blood 116 mg/dL (60-115)
[2024-08-25 20:58] LABS: Glucose, Whole Blood 144 mg/dL (60-115)
--- NOTE | 2024-08-25 21:39 | P.CNID_ITS ---
History of Present Illness Data of Consult Service Date: 08/24/24 Requesting physician: Alanis Joy Primary Care Provider: Unknown Physician HPI Reason for consult: rash,dysuria,redness leg She presents with vague abdominal discomfort for two days?dysuria. She has PCN allergy and has had rash. She has improving redness legs. Review of Systems 2 Review of Systems: Yes all other systems are reviewed and are negative PMFSH Past Medical History Medical History Umbilical hernia Diabetes mellitus with hyperglycemia Non compliance w medication regimen Hypothyroid Diabetes type 2, controlled Essential hypertension Fibromyalgia Sleep apnea Asthma Hypertension Family History Family history: reviewed and not pertinent Surgical History Surgical History History of tooth extraction History of left hip replacement History of cholecystectomy History of thyroidectomy Social History Social History Household Members: None Housing: House Do you presently have visiting nurse or other home services: No Alcohol intake: never Patient Tobacco Use Status: Never used Tobacco e-Cigarette/Vaping Use: Never Used Second Hand Smoke Exposure: No Advance Directives Date on File: 11/02/21 service: No Current occupational status: retired Cognitive needs: Yes (cane) Hearing needs: No Vision needs: Yes (glasses) Meds Allergies Allergy/AdvReac Type Severity Reaction Status Date / Time bee pollen [bee stings] Allergy Severe Anaphylaxis Verified 08/21/24 22:51 Iodinated Contrast Media Allergy Severe Anaphylaxis Verified 08/21/24 22:51 [IV CONTRAST] THERMONOL Allergy Severe ANAPHYLATIC, Verified 08/21/24 22:51 BRUISING metformin [METFORMIN] Allergy Unknown UNKNOWN Verified 08/21/24 22:51 oxybutynin Allergy Unknown Unknown Verified 08/21/24 22:51 Penicillins [PENICILLINS] Allergy Unknown UNKNOWN Verified 08/21/24 22:51 solifenacin [Vesicare] Allergy Unknown Unknown Verified 08/21/24 22:51 gluten [GLUTEN] AdvReac Intermediate STOMACH Verified 08/21/24 22:51 UPSET insulin detemir AdvReac Unknown BRUISES Verified 08/21/24 22:51 lisinopril [From ZESTRIL] AdvReac Unknown COUGH Verified 08/21/24 22:51 metoprolol [METOPROLOL] AdvReac Unknown SEVERE Verified 08/21/24 22:51 ANGINA Active Medications: Current Medications Acetaminophen (Acetaminophen 325 Mg Tablet) 650 mg PO Q6H PRN PRN Reason: Pain, Mild 1-3,fever,headache Last Admin: 08/24/24 09:35 Dose: 650 mg Aspirin (Aspirin Enteric Coated 81 Mg Tablet.Dr) 81 mg PO DAILY [facility] Last Admin: 08/25/24 08:10 Dose: 81 mg Atorvastatin Calcium (Atorvastatin Calcium 10 Mg Tablet) 10 mg PO DAILY [facility] Last Admin: 08/25/24 08:10 Dose: 10 mg Calamine (Calamine/Zinc Oxide Lotion 177 Ml Bottle) 1 appl TOPICAL Q3H PRN; Protocol PRN Reason: Itching Calcium Carbonate (Calcium Carbonate 750 Mg Tab.Chew) 750 mg PO Q4H PRN PRN Reason: Heartburn Dextrose (Dextrose 50 % 25 Gm/50 Ml Syringe) 25 gm IVPUSH Q15M PRN; Protocol PRN Reason: per Hypoglycemia Standing Ord. Diphenhydramine HCl (Diphenhydramine Hcl 25 Mg Capsule) 25 mg PO Q6H PRN PRN Reason: Itching Last Admin: 08/24/24 12:32 Dose: 25 mg Enoxaparin Sodium (Enoxaparin Sodium 40 Mg/0.4 Ml Syringe) 40 mg SUBCUT Q24H [facility] Last Admin: 08/25/24 08:10 Dose: 40 mg Glucose (Glucose Gel 15 Gm Gel..Gram.) 15 gm PO Q15M PRN; Protocol PRN Reason: per Hypoglycemia Standing Ord. Metronidazole (Flagyl) 500 mg in 100 mls @ 100 mls/hr IV Q8H [facility] Last Infusion: 08/25/24 14:40 Dose: Infused Insulin Glargine (Insulin Glargine,Hum.Rec.Anlog 100 Unit/Ml 10 Ml Vial) 15 unit SUBCUT BEDTIME [facility] Last Admin: 08/24/24 21:50 Dose: 15 unit Insulin Human Lispro (Insulin Lispro 100 Unit/Ml 3 Ml Vial) 0 unit SUBCUT QIDACHS [facility]; Protocol Last Admin: 08/25/24 16:57 Dose: Not Given Levothyroxine Sodium (Levothyroxine Sodium 75 Mcg Tablet) 75 mcg PO DAILY@0600 [facility] Last Admin: 08/25/24 06:35 Dose: 75 mcg Losartan Potassium (Losartan Potassium 50 Mg Tablet) 100 mg PO DAILY [facility]; Protocol Last Admin: 08/25/24 08:10 Dose: 100 mg Magnesium Hydroxide (Milk Of Magnesia 30 Ml Oral.Susp) 30 ml PO DAILY PRN PRN Reason: Constipation Melatonin (Melatonin 3 Mg Tablet) 6 mg PO BEDTIME PRN PRN Reason: Insomnia Last Admin: 08/22/24 21:37 Dose: 6 mg Metoprolol Succinate (Metoprolol Succinate Er 25 Mg Tab.Er.24h) 25 mg PO DAILY [facility]; Protocol Last Admin: 08/25/24 08:11 Dose: 25 mg Nitroglycerin (Nitroglycerin 0.4 Mg Tab.Subl) 0.4 mg SUBLINGUAL Q5M PRN PRN Reason: Chest Pain Nystatin (Nystatin Powder 15 Gm Bottle) 1 appl TOPICAL BID [facility]; Protocol Last Admin: 08/25/24 08:11 Dose: 1 appl Ondansetron HCl (Ondansetron Hcl 4 Mg/2 Ml Vial) 4 mg IVPUSH Q8H PRN PRN Reason: Nausea and Vomiting Quetiapine Fumarate (Quetiapine Fumarate 25 Mg Tablet) 25 mg PO BEDTIME [facility] Last Admin: 08/24/24 21:50 Dose: 25 mg Sodium Chloride (0.9 % Sodium Chloride Flush 3 Ml Syringe) 3 ml IVFLUSH QSHIFT [facility] Last Admin: 08/25/24 16:57 Dose: Not Given Home Medications ?Medication ?Instructions ?Recorded ?Confirmed ?Last Taken ?Type aspirin 81 mg tablet,delayed 81 mg PO DAILY 08/22/24 08/22/24 Unknown History release glipizide 10 mg tablet 10 mg PO DAILY 08/22/24 08/22/24 Unknown History levothyroxine 75 mcg tablet 75 mcg PO DAILY@0600 08/22/24 08/22/24 Unknown History losartan 100 mg tablet 100 mg PO DAILY 08/22/24 08/22/24 Unknown History metformin 1,000 mg tablet 1,000 mg DAILY@0800 08/22/24 08/22/24 Unknown History metoprolol succinate 25 mg 25 mg PO DAILY 08/22/24 08/22/24 Unknown History tablet,extended release 24 hr nitroglycerin 0.4 mg sublingual 0.4 mg sublingual Q5M PRN Chest 08/22/24 08/22/24 Unknown History tablet Pain Physical Exam 2 Vital Signs: Vital Signs: Last Vital Signs Temp 97.0 F 08/25/24 15:24 Pulse 65 08/25/24 15:24 Resp 16 08/25/24 15:24 BP 119/55 L 08/25/24 15:24 Pulse Ox 97 08/25/24 15:24 O2 Del Method Room Air 08/25/24 15:24 BMI result Body Mass Index 37.9 Const: General: cooperative HEENT: Head: Yes normal to inspection Face and sinus: Yes normal facial exam Mouth: Normal oral and palatal mucosa present Teeth and gingiva: d entition normal Eyes: General: appearance normal, both eyes and all related structures P upils: Equal, round and reactive pupils present Resp: Effort & Inspection: normal respiratory effort Cardio: Rate: regular rate Rhythm: regular rhythm GI: Palpation (GI): Soft to palpation and nontender : General: Yes no CVA tenderness Back/Spine/Pelvis: Back: no CVA tenderness Skin: General skin exam: no rashes or lesions noted Neuro: General: moves all extremities Cranial nerves: Yes Equal, round and reactive pupils present Extrem: Other: improving redness legs General: Yes normal to inspection Psych: Appearance: grossly normal Results Labs 08/22/24 04:50 08/25/24 06:23 Labs: BMP 08/25/24 06:23 Creatinine 0.90 Microbiology Microbiology Results: Microbiology 08/21/24 Unknown Urine clean catch - Clean Catch Midstream Urine Culture - Final Escherichia coli 08/22/24 02:32 Blood - Venous Blood Culture - Preliminary No growth after 48 hours. 08/22/24 02:32 Blood - Venous Blood Culture - Preliminary No growth after 48 hours. Assessment and Plan (1) Diverticulitis: Status: Acute (2) Cellulitis: Status: Acute Plan Possibly resolving cellulitis and concern over abdominal discomfort resolving as well. Would continue Levaquin and Flagyl cover potential diverticulitis as well.
[2024-08-25] MEDS: Insulin Glargine,Hum.rec.anlog 100 UNIT/ML 10 ML VIAL 15 UNIT SUBCUT (22:32)
[2024-08-25] MEDS: QUEtiapine Fumarate 25 MG TABLET PO (22:32)
[2024-08-25 23:34] VITALS: BP 119/56; PULSE 67; RESP 17; TEMP 36.1; O2SAT 97
[2024-08-26] MEDS: Levothyroxine Sodium 75 MCG TABLET PO (05:26)
[2024-08-26] MEDS: metroNIDAZOLE/NS 500 MG/100 ML PIGGYBACK 100 MG IV (05:30)
[2024-08-26 07:07] LABS: Creatinine Clr Calc Pharmacy 59.8; Estimated Glomerular Filt Rate > 60
[2024-08-26 07:20] VITALS: BP 170/74; PULSE 69; RESP 16; TEMP 36; O2SAT 99
[2024-08-26 07:39] LABS: Glucose, Whole Blood 178 mg/dL (60-115)
[2024-08-26] MEDS: Insulin Lispro 100 UNIT/ML 3 ML VIAL SUBCUT ×3 (07:52→20:27)
[2024-08-26] MEDS: Enoxaparin Sodium 40 MG/0.4 ML SYRINGE SUBCUT (07:52)
[2024-08-26] MEDS: Aspirin Enteric Coated 81 MG TABLET.DR PO (07:53)
[2024-08-26] MEDS: Losartan Potassium 50 MG TABLET 100 MG PO (07:53)
[2024-08-26] MEDS: Atorvastatin Calcium 10 MG TABLET PO (07:53)
[2024-08-26] MEDS: Metoprolol Succinate ER 25 MG TAB.ER.24H PO (07:53)
[2024-08-26] MEDS: Nystatin Powder 15 GM BOTTLE 1 APPL TOPICAL ×2 (07:56→20:28)
[2024-08-26] MEDS: 0.9 % Sodium Chloride Flush 3 ML SYRINGE IVFLUSH ×3 (07:58→20:16)
--- NOTE | 2024-08-26 11:18 | HO.PM.IMPN ---
Subjective Subjective Date of Service: 08/26/24 Interval History: seen and examined this morning follow up for UTI, cellulitis, diverticulitis has body wide rash which is itchy; no hives less confused this am, but still forgetful Review of Systems Review of Systems: Yes all other systems are reviewed and are negative Constitutional Constitutional: Denies chills and Denies fever(s) Physical Exam Vital Signs: Vital Signs: Last Vital Signs Temp 96.8 F 08/26/24 07:20 Pulse 69 08/26/24 07:20 Resp 16 08/26/24 07:20 BP 170/74 H 08/26/24 07:20 Pulse Ox 99 08/26/24 07:20 O2 Del Method Room Air 08/26/24 07:20 BMI result Body Mass Index 37.9 Appearing in no acute distress lung sounds are clear to auscultation heart regular rate rhythm, clear S1, S2 positive bowel sounds, abdomen is soft, nontender neuro patient is alert x3, no focal deficits Objective Data Active Medications Acetaminophen (Acetaminophen 325 Mg Tablet) 650 mg PO Q6H PRN PRN Reason: Pain, Mild 1-3,fever,headache Last Admin: 08/24/24 09:35 Dose: 650 mg Documented By: NESTOR Aspirin (Aspirin Enteric Coated 81 Mg Tablet.) 81 mg PO DAILY [facility] Last Admin: 08/26/24 07:53 Dose: 81 mg Documented By: RADHA Atorvastatin Calcium (Atorvastatin Calcium 10 Mg Tablet) 10 mg PO DAILY [facility] Last Admin: 08/26/24 07:53 Dose: 10 mg Documented By: RADHA Calamine (Calamine/Zinc Oxide Lotion 177 Ml Bottle) 1 appl TOPICAL Q3H PRN; Protocol PRN Reason: Itching Calcium Carbonate (Calcium Carbonate 750 Mg Tab.Chew) 750 mg PO Q4H PRN PRN Reason: Heartburn Dextrose (Dextrose 50 % 25 Gm/50 Ml Syringe) 25 gm IVPUSH Q15M PRN; Protocol PRN Reason: per Hypoglycemia Standing Ord. Diphenhydramine HCl (Diphenhydramine Hcl 25 Mg Capsule) 25 mg PO Q6H PRN PRN Reason: Itching Last Admin: 08/24/24 12:32 Dose: 25 mg Documented By: NESTOR Enoxaparin Sodium (Enoxaparin Sodium 40 Mg/0.4 Ml Syringe) 40 mg SUBCUT Q24H [facility] Last Admin: 08/26/24 07:52 Dose: 40 mg Documented By: RADHA Glucose (Glucose Gel 15 Gm Gel..Gram.) 15 gm PO Q15M PRN; Protocol PRN Reason: per Hypoglycemia Standing Ord. Insulin Glargine (Insulin Glargine,Hum.Rec.Anlog 100 Unit/Ml 10 Ml Vial) 15 unit SUBCUT BEDTIME [facility] Last Admin: 08/25/24 22:32 Dose: 15 unit Documented By: SERENA Insulin Human Lispro (Insulin Lispro 100 Unit/Ml 3 Ml Vial) 0 unit SUBCUT QIDACHS [facility]; Protocol Last Admin: 08/26/24 07:52 Dose: 2 unit Documented By: RADHA Levothyroxine Sodium (Levothyroxine Sodium 75 Mcg Tablet) 75 mcg PO DAILY@0600 [facility] Last Admin: 08/26/24 05:26 Dose: 75 mcg Documented By: SERENA Losartan Potassium (Losartan Potassium 50 Mg Tablet) 100 mg PO DAILY [facility]; Protocol Last Admin: 08/26/24 07:53 Dose: 100 mg Documented By: RADHA Magnesium Hydroxide (Milk Of Magnesia 30 Ml Oral.Susp) 30 ml PO DAILY PRN PRN Reason: Constipation Melatonin (Melatonin 3 Mg Tablet) 6 mg PO BEDTIME PRN PRN Reason: Insomnia Last Admin: 08/22/24 21:37 Dose: 6 mg Documented By: SARITA Metoprolol Succinate (Metoprolol Succinate Er 25 Mg Tab.Er.24h) 25 mg PO DAILY [facility]; Protocol Last Admin: 08/26/24 07:53 Dose: 25 mg Documented By: RADHA Metronidazole (Metronidazole 500 Mg Tablet) 500 mg PO Q8H [facility] Nitroglycerin (Nitroglycerin 0.4 Mg Tab.Subl) 0.4 mg SUBLINGUAL Q5M PRN PRN Reason: Chest Pain Nystatin (Nystatin Powder 15 Gm Bottle) 1 appl TOPICAL BID [facility]; Protocol Last Admin: 08/26/24 07:56 Dose: 1 appl Documented By: RADHA Ondansetron HCl (Ondansetron Hcl 4 Mg/2 Ml Vial) 4 mg IVPUSH Q8H PRN PRN Reason: Nausea and Vomiting Quetiapine Fumarate (Quetiapine Fumarate 25 Mg Tablet) 25 mg PO BEDTIME [facility] Last Admin: 08/25/24 22:32 Dose: 25 mg Documented By: SERENA Sodium Chloride (0.9 % Sodium Chloride Flush 3 Ml Syringe) 3 ml IVFLUSH QSHIFT [facility] Last Admin: 08/26/24 07:58 Dose: 3 ml Documented By: RADHA Labs 08/22/24 04:50 08/26/24 05:53 Labs: Laboratory Results - last 24 hr 08/25/24 08/25/24 08/26/24 16:34 20:50 05:53 Estim Creat Clear Calc 59.8 Estimated GFR > 60 POC Glucose 116 H 144 H 08/26/24 07:19 Estim Creat Clear Calc Estimated GFR POC Glucose 178 H Assessment and Plan (1) Cellulitis: Status: Acute (2) Diverticulitis: Status: Acute Plan This is a 84-year-old female with pertinent history of dementia, unspecified, hypothyroidism, hypertension, kdp-vaamhti-mjgsbcext diabetes mellitus, mixed hyperlipidemia who presents to the emergency department for evaluation of back pain and urinary urgency. Acute metabolic encephalopathy due to acute UTI on a background of unspecified dementia initially treated with IV ceftriaxone, developed a rash, unclear if related, but will stop and switch to levaquin Urine culture growing pansensitive e.coli Monitor mentation, unclear baseline No sepsis ID consult pending Left lower extremity cellulitis stop vanco; levaquin started as above Monitor for improvement Mild Sigmoid diverticulitis Tolerating p.o. diet. seen by GI >continue abx for 7 days and outpatient follow up with GI rash. Resolving less likely drug rash symptomatic treatment, if not improvement with benadryl and topical cream may need low dose steroids Clc-ftksqow-rimxcsddb diabetes mellitus 2 with hyperglycemia ss, ada diet lantus during hospital stay, BS controlled hold glipizide, metformin hba1c 8.0 normocytic anemia no bleeding stable HH Dementia, unspecified Maintain sleep-wake cycle Progressive debility and weakness Physical therapy - possible D/c home with services depending on maintining mobility during hospitalization Hypertension Continue home metoprolol, losartan Hypothyroidism On Synthroid DVT prophylaxis: Lovejossuex attending Dr. Haro DNR/DNI Requires ongoing inpatient stay for management of multiple infections, specialist evaluation, close monitoring Quality Stroke Does the patient have a stroke diagnosis?: No VTE Prior VTE?: No VTE Risk Level:: Medical - moderate - high VTE Device Contraindication: Treatment Not Indicated VTE Drug Contraindication: N/A - Med Ordered
[2024-08-26 12:21] LABS: Glucose, Whole Blood 200 mg/dL (60-115)
[2024-08-26] MEDS: metroNIDAZOLE 500 MG TABLET PO ×2 (13:55→22:06)
[2024-08-26 16:00] VITALS: BP 113/53; PULSE 67; RESP 16; TEMP 36.3; O2SAT 97
[2024-08-26 16:48] LABS: Glucose, Whole Blood 132 mg/dL (60-115)
[2024-08-26 19:19] VITALS: BP 136/60; PULSE 65; RESP 18; TEMP 36.9; O2SAT 99
[2024-08-26 19:48] LABS: Glucose, Whole Blood 209 mg/dL (60-115)
[2024-08-26] MEDS: QUEtiapine Fumarate 25 MG TABLET PO (20:15)
[2024-08-26] MEDS: Melatonin 3 MG TABLET 6 MG PO (20:16)
[2024-08-26] MEDS: Insulin Glargine,Hum.rec.anlog 100 UNIT/ML 10 ML VIAL 15 UNIT SUBCUT (20:27)
[2024-08-26 23:25] VITALS: BP 151/62; PULSE 61; RESP 16; TEMP 36.3; O2SAT 99
[2024-08-27] MEDS: Levothyroxine Sodium 75 MCG TABLET PO (06:04)
[2024-08-27] MEDS: metroNIDAZOLE 500 MG TABLET PO (06:04)
[2024-08-27 06:38] LABS: Creatinine Clr Calc Pharmacy 60.6; Estimated Glomerular Filt Rate > 60
[2024-08-27 06:47] VITALS: BP 142/74; PULSE 64; RESP 17; TEMP 36.6; O2SAT 98
[2024-08-27 07:12] LABS: Glucose, Whole Blood 129 mg/dL (60-115)
--- NOTE | 2024-08-27 07:40 | PM.DS ---
DS: Providers Provider Date of Service: 08/27/24 Date of admission: 08/22/24 03:31 Date of discharge: 08/27/24 Primary care physician: Unknown Physician Consults: 08/22/24 13:11 Consult to Gastroenterology Routine Consulting Provider: Brent Whalen Reason for consultation: diverticultiis 08/23/24 13:12 Consult to Infectious Diseases Routine Consulting Provider: [facility] Reason for consultation: LLE cellulitis, UTI; rash; pcn allergy Has provider been notified: No DS: Diagnosis Discharge Diagnosis (1) Cellulitis: Status: Acute (2) Diverticulitis: Status: Acute DS: Summary Hospital Course Hospital Course: History and physical as per admitting provider. This is a 84-year-old female with pertinent history of dementia, unspecified, hypothyroidism, hypertension, liw-gpjufel-fatopzrun diabetes mellitus, mixed hyperlipidemia who presents to the emergency department for evaluation of back pain and urinary urgency. Patient was brought to the ER via EMS but she does not remember calling EMS and does not know how she got to the hospital. She does endorse intermittent urinary hesitancy and urinary urgency that has been ongoing for the last 2 days. Also complains of back pain. States she is unable to perform ADLs and needs assistance. Has gotten progressively weak. No fever, chills, chest pain, palpitations, shortness of breath, changes in bowel habits. In the emergency department, patient was found to have UTI. Was initiated on broad-spectrum antibiotics. Acute metabolic encephalopathy due to acute UTI on a background of unspecified dementia. initially treated with IV ceftriaxone, developed a rash, unclear if related, stopped and switched to levaquin. Urine culture growing pansensitive e.coli. Monitor mentation, unclear baseline. No sepsis. ID consult pending Left lower extremity cellulitis. initially treated with Vancomycin. changed to levaquin. will continue for a few more days. Mild Sigmoid diverticulitis. Tolerating p.o. diet. seen by GI >continue abx for 7 days and outpatient follow up with GI Rash. Resolving . less likely drug rash. symptomatic treatment, if not improvement with benadryl and topical cream may need low dose steroids Kjg-xyalwtq-yulkkgvnt diabetes mellitus 2 with hyperglycemia. A1C 8.0. treated with ss, continue glipizide and metformin at home. normocytic anemia . no bleeding . stable HH Dementia, unspecified. Maintain sleep-wake cycle Progressive debility and weakness. Physical therapy Hypertension. Continue home metoprolol, losartan Hypothyroidism. On Synthroid Time Attestation Discharge Coordination Time (in mins): 40 Quality: Safe Use of Opioids Does Pt have an Active Cancer Diagnosis on the Problem List?: No Quality: Stroke Does the patient have a stroke diagnosis?: No Physical Exam Vital Signs: Vital Signs: Last Vital Signs Temp 98 F 08/27/24 06:47 Pulse 64 08/27/24 06:47 Resp 17 08/27/24 06:47 BP 142/74 H 08/27/24 06:47 Pulse Ox 98 08/27/24 06:47 O2 Del Method Room Air 08/27/24 06:47 BMI result Body Mass Index 37.9 Appearing in no acute distress head is normocephalic atraumatic eyes pupils are PERRLA sclera is anicteric mouth throat mucous membranes are intact and moist neck is supple no lymphadenopathy, no JVD noted lung sounds are clear to auscultation heart regular rate rhythm, clear S1, S2 positive bowel sounds, abdomen is soft, nontender neuro patient is alert x3, no focal deficits DS: Data Data Completed and Pending Labs on day of discharge: Laboratory Results - last 24 hr 08/26/24 08/26/24 08/26/24 12:16 16:40 19:21 Creatinine Estim Creat Clear Calc Estimated GFR POC Glucose 200 H 132 H 209 H 08/27/24 08/27/24 05:23 06:59 Creatinine 0.78 Estim Creat Clear Calc 60.6 Estimated GFR > 60 POC Glucose 129 H Discharge Plan Discharge Anticipated Discharge Date/Time: 08/27/24 07:39 Patient Disposition: Home Health Service Discharge Diagnosis: Cellulitis Acute metabolic encephalopathy UTI Discharge Medications: New metronidazole 500 mg Tablet 500 mg PO Q8H Qty: 9 0RF levofloxacin 750 mg tablet 750 mg PO DAILY Qty: 3 0RF Continued (DME) blood-glucose meter [FreeStyle Lite Meter] Kit See Rx Instructions .Route Qty: 1 0RF Rx Instructions: Test once daily aspirin 81 mg tablet,delayed release (DR/EC) 81 mg PO DAILY losartan 100 mg tablet 100 mg PO DAILY metformin 1,000 mg tablet 1,000 mg DAILY@0800 metoprolol succinate 25 mg tablet extended release 24 hr 25 mg PO DAILY levothyroxine 75 mcg Tablet 75 mcg PO DAILY@0600 glipizide 10 mg tablet 10 mg PO DAILY nitroglycerin 0.4 mg Tablet, Sublingual 0.4 mg SUBLINGUAL Q5M PRN (Reason: Chest Pain) Rx Instructions: do not exceed 3 doses per episode atorvastatin 10 mg tablet 10 mg PO DAILY Qty: 90 0RF (DME) FreeStyle Lite Strips Strip See Rx Instructions .Route Qty: 100 0RF Rx Instructions: Test once daily (DME) lancets [FreeStyle Lancets] 28 gauge misc See Rx Instructions .Route Qty: 100 0RF Rx Instructions: Test once daily Discharge Orders: Discharge Order (Routine); Ordered 08/27/24 Ordered By: Jenelle Chacon Diet: Advance to usual diet Activity on Discharge: As tolerated Stand Alone Forms: Patient Portal Discharge page Print Language: Irish Care Plan Goals: Complete antibiotics Health Concerns: Cellulitis Acute metabolic encephalopathy UTI Mild sigmoid diverticulitis Plan of Treatment: Follow-up with primary care provider as needed Take all medications as prescribed Assessment: See discharge summary
--- NOTE | 2024-08-27 07:48 | W.MHC.F2F ---
Service Date Service Date: 08/27/24 Encounter Date of encounter: 08/27/24 Reasons for Services Signs and symptoms assessed: UTI Cellulitis Reason for usp: CV/CP assess and/or care Reason for physical therapy: home safety and mobility Homebound: Leaving the home is medically contraindicated at this time without the asist of a device and/or another person due th the listed conditions above and below. Reason homebound: unsteady gait / fall risk and weakness related to hospital stay Certification: Based on the above findings, I certify that this patient is confined to the home and needs intermittent usp care, physical therapy and/or speech therapy, or continues to need occupational therapy. The patient is under my care, and I have initiated the establishment of the plan of care. The patient will be followed by a physician who will periodically review the plan of care. Time Spent With Patient Time: Total time managing care of this patient today ____ minutes.
[2024-08-27] MEDS: Metoprolol Succinate ER 25 MG TAB.ER.24H PO (09:36)
[2024-08-27] MEDS: Losartan Potassium 50 MG TABLET 100 MG PO (09:36)
[2024-08-27] MEDS: Atorvastatin Calcium 10 MG TABLET PO (09:36)
[2024-08-27] MEDS: Aspirin Enteric Coated 81 MG TABLET.DR PO (09:36)
[2024-08-27] MEDS: 0.9 % Sodium Chloride Flush 3 ML SYRINGE IVFLUSH (09:36)
[2024-08-27] MEDS: Nystatin Powder 15 GM BOTTLE 1 APPL TOPICAL (09:37)
[2024-08-27] MEDS: Enoxaparin Sodium 40 MG/0.4 ML SYRINGE SUBCUT (09:37)
--- NOTE | 2024-08-27 09:40 | MHC.CM.PN ---
pt dcd home via [facility] hcp notified and will meet pt there hvns notofied of dc
== END 2024-08-27 10:50 | disposition home health service (06) | DRG 689 ==
LOC: HO.ED 23:45 → HO.EDOVER 08-22 03:35 → HO.S3 08-23 09:59
PROVIDERS: Physician Assistant Medical; Admitting Provider Student in an Organized Health Care Education/Training Program; Emergency Provider Internal Medicine; Visit Provider Nurse Practitioner Acute Care
DX: N39.0 Urinary tract infection, site not specified (principal); G93.41 Metabolic encephalopathy; K57.32 Diverticulitis of large intestine without perforation or abscess without bleeding; L03.116 Cellulitis of left lower limb; D64.9 Anemia, unspecified; E11.65 Type 2 diabetes mellitus with hyperglycemia; Z66 Do not resuscitate; I10 Essential (primary) hypertension; L27.0 Generalized skin eruption due to drugs and medicaments taken internally; B96.20 Unspecified Escherichia coli [E. coli] as the cause of diseases classified elsewhere; T36.1X5A Adverse effect of cephalosporins and other beta-lactam antibiotics, initial encounter; F03.90 Unspecified dementia, unspecified severity, without behavioral disturbance, psychotic disturbance, mood disturbance, and anxiety; E03.9 Hypothyroidism, unspecified; R53.81 Other malaise; Z20.822 Contact with and (suspected) exposure to COVID-19; Z79.82 Long term (current) use of aspirin; Z79.84 Long term (current) use of oral hypoglycemic drugs; Z79.890 Hormone replacement therapy; Z79.899 Other long term (current) drug therapy
CPT/HCPCS: 0241U; 36415; 74176; 80048; 80053; 80202; 81001; 82565; 82947; 83036; 83605; 84484; 85025; 87040; 87086; 87088; 87186; 93005; 97162; 99285; J0696; J1650; J1836; J2060; J3370

== ENCOUNTER → 2024-08-21 23:14 | Outpatient (BNV) | payer MEDICARE, SELFPAY | PROVIDERS: Admitting Provider Student in an Organized Health Care Education/Training Program; Emergency Provider Internal Medicine; Visit Provider Internal Medicine Cardiovascular Disease | DX: R94.31 Abnormal electrocardiogram [ECG] [EKG] (principal); I44.4 Left anterior fascicular block; R41.82 Altered mental status, unspecified | CPT/HCPCS: 93010 ==

== ENCOUNTER → 2024-08-22 03:25 | Outpatient (BNV) | payer MEDICARE, SELFPAY | PROVIDERS: Admitting Provider Student in an Organized Health Care Education/Training Program; Emergency Provider Internal Medicine; Visit Provider Radiology Diagnostic Radiology | DX: R10.9 Unspecified abdominal pain (principal); R30.0 Dysuria; K57.32 Diverticulitis of large intestine without perforation or abscess without bleeding; N20.0 Calculus of kidney | CPT/HCPCS: 74176 ==

== ENCOUNTER → 2024-08-22 03:31 | Outpatient (BNV) | payer MEDICARE, SELFPAY | PROVIDERS: Admitting Provider Student in an Organized Health Care Education/Training Program; Emergency Provider Internal Medicine; Visit Provider Student in an Organized Health Care Education/Training Program | DX: L03.116 Cellulitis of left lower limb (principal); G93.41 Metabolic encephalopathy; F02.80 Dementia in other diseases classified elsewhere, unspecified severity, without behavioral disturbance, psychotic disturbance, mood disturbance, and anxiety; E11.65 Type 2 diabetes mellitus with hyperglycemia | CPT/HCPCS: 99222; 99232; 99499 ==

== ENCOUNTER → 2024-08-22 03:31 | Outpatient (BNV) | payer MEDICARE, SELFPAY | PROVIDERS: Admitting Provider Student in an Organized Health Care Education/Training Program; Emergency Provider Internal Medicine; Visit Provider Internal Medicine | DX: K57.92 Diverticulitis of intestine, part unspecified, without perforation or abscess without bleeding (principal); L03.90 Cellulitis, unspecified | CPT/HCPCS: 99222 ==

== ENCOUNTER 2024-09-02 17:40 | Inpatient (IN) | payer MEDICARE, OTHER, SELFPAY ==
--- NOTE | ~2024-09-02 | XR_ITS ---
CLINICAL HISTORY: chf? 1 view chest x-ray Comparison: CR/VT/SR - XR CHEST 1V - 03/24/22 15:07 EDT Findings: Mild diffuse interstitial prominence of both lungs. No significant pleural effusion or pneumothorax. Normal size heart. No acute fracture. IMPRESSION: Mild diffuse interstitial prominence of both lungs may represent pulmonary vascular congestion/pulmonary edema. This document has been electronically signed by: Manasa Neil MD on 09/02/2024 19:07:46
[2024-09-02 17:47] VITALS: BP 140/75; PULSE 76; O2SAT 97
[2024-09-02 18:01] VITALS: BP 154/67; PULSE 71; RESP 20; TEMP 36.6; O2SAT 100; BMI 34.1
--- NOTE | 2024-09-02 18:02 | ED_ITS ---
HPI - General Adult General Chief complaint: General Medical Stated complaint: EDEMA IN LOWER LEGS Time Seen by Provider: 09/02/24 18:00 Source: patient Mode of arrival: ambulatory Limitations: no limitations History of Present Illness ED Provider: HPI narrative: Patient is 84 years old with history of dementia, hypothyroidism, hypotension, diabetes, hyperlipidemia with just admitted and discharged on 08/27 for UTI and cellulitis lower extremity comes back as noticed increased swelling of the lower extremity with increased redness spreading all the way to the knee. Patient denies any significant shortness a breath no fever no chills her friend came to her house and who noticed a swelling and told her about it hence she came to the hospital patient lives alone has poor support no chest pain no shortness a breath no fever or chills Related Data Home Medications ?Medication ?Instructions ?Recorded ?Confirmed aspirin 81 mg tablet,delayed 81 mg PO DAILY 08/22/24 08/22/24 release glipizide 10 mg tablet 10 mg PO DAILY 08/22/24 08/22/24 levothyroxine 75 mcg tablet 75 mcg PO DAILY@0600 08/22/24 08/22/24 losartan 100 mg tablet 100 mg PO DAILY 08/22/24 08/22/24 metformin 1,000 mg tablet 1,000 mg DAILY@0800 08/22/24 08/22/24 metoprolol succinate 25 mg 25 mg PO DAILY 08/22/24 08/22/24 tablet,extended release 24 hr nitroglycerin 0.4 mg sublingual 0.4 mg sublingual Q5M PRN Chest 08/22/24 08/22/24 tablet Pain Previous Rx's ?Medication ?Instructions ?Recorded blood-glucose meter (FreeStyle #1 ea 09/29/21 Lite Meter kit) atorvastatin 10 mg tablet 10 mg PO DAILY #90 tabs 11/23/21 blood sugar diagnostic (FreeStyle #100 ea 11/23/21 Lite Strips) lancets 28 gauge (FreeStyle #100 ea 11/23/21 Lancets) levofloxacin 750 mg tablet 750 mg PO DAILY #3 tabs 08/26/24 metronidazole 500 mg tablet 500 mg PO Q8H #9 tabs 08/26/24 Allergies Allergy/AdvReac Type Severity Reaction Status Date / Time bee pollen [bee stings] Allergy Severe Anaphylaxis Verified 09/02/24 18:09 Iodinated Contrast Media Allergy Severe Anaphylaxis Verified 09/02/24 18:09 [IV CONTRAST] THERMONOL Allergy Severe ANAPHYLATIC, Verified 09/02/24 18:09 BRUISING metformin [METFORMIN] Allergy Unknown UNKNOWN Verified 09/02/24 18:09 oxybutynin Allergy Unknown Unknown Verified 09/02/24 18:09 Penicillins [PENICILLINS] Allergy Unknown UNKNOWN Verified 09/02/24 18:09 solifenacin [Vesicare] Allergy Unknown Unknown Verified 09/02/24 18:09 gluten [GLUTEN] AdvReac Intermediate STOMACH Verified 09/02/24 18:09 UPSET insulin detemir AdvReac Unknown BRUISES Verified 09/02/24 18:09 lisinopril [From ZESTRIL] AdvReac Unknown COUGH Verified 09/02/24 18:09 metoprolol [METOPROLOL] AdvReac Unknown SEVERE Verified 09/02/24 18:09 ANGINA Review of Systems 2 Review of Systems: Yes all other systems are reviewed and are negative PMFSH Past Medical History Medical History Umbilical hernia Diabetes mellitus with hyperglycemia Non compliance w medication regimen Hypothyroid Diabetes type 2, controlled Essential hypertension Fibromyalgia Sleep apnea Asthma Hypertension Surgical History History of tooth extraction History of left hip replacement History of cholecystectomy History of thyroidectomy Social History Social History Household Members: None Housing: House Do you presently have visiting nurse or other home services: No Alcohol intake: never Patient Tobacco Use Status: Never used Tobacco e-Cigarette/Vaping Use: Never Used Second Hand Smoke Exposure: No Advance Directives: Yes Advance Directives on File: Yes Advance Directives Date on File: 11/02/21 service: No Current occupational status: retired Cognitive needs: Yes (cane) Hearing needs: No Vision needs: Yes (glasses) Physical Exam ED Vital Signs: Vital Signs - 24 hr 09/02/24 18:01 09/02/24 21:07 09/02/24 21:35 Temperature 97.8 F Pulse Rate 71 Respiratory Rate 20 16 18 Blood Pressure 154/67 H Pulse Oximetry 100 Oxygen Delivery Method Room Air BMI result Body Mass Index 34.1 Appearance: Alert. Oriented X2-3 demented. No acute distress. Unkept condition Eyes: PERRLA, No Nystagmus ENT: Pharynx normal. Oral Mucosa moist Neck: Normal inspection. Neck supple. CVS: Normal heart rate and rhythm. Pulses normal. Respiratory: No respiratory distress. Equal air entry bilateral, no wheezing/rales/rhonchi Abdomen: Soft and nontender. Bowel sounds are present, no mass palpable, no CVA tenderness Skin: Skin warm and dry. Normal skin color. Normal skin turgor. Extremities: 3+ leg edema with erythema till the knee. No calf tenderness Neuro: Oriented X 2-3 dementia++. No motor deficit. No sensory deficit.No cerebellar signs , cranial nerves II-XII intact Medications Administered Generic Name Dose Route Start Last Admin Trade Name Freq PRN Reason Stop Dose Admin Acetaminophen 975 mg 09/02/24 22:14 09/03/24 00:04 Acetaminophen 325 Mg Tablet PO 975 mg Q6H PRN Administration Pain, Mild 1-3,fever,headache Enoxaparin Sodium 40 mg 09/02/24 23:00 09/03/24 00:06 Enoxaparin Sodium 40 Mg/0.4 Ml Syringe SUBCUT 40 mg Q24H BRY Administration Doxycycline Hyclate 100 mg/ 250 mls @ 166.67 mls/hr 09/02/24 22:00 09/03/24 00:38 Sodium Chloride IV Infused Q12H BRY Infusion Melatonin 6 mg 09/02/24 22:14 09/03/24 00:04 Melatonin 3 Mg Tablet PO 6 mg BEDTIME PRN Administration Insomnia Sodium Chloride 3 ml 09/03/24 00:00 09/03/24 00:40 0.9 % Sodium Chloride Flush 3 Ml Syringe IVFLUSH Not Given QSHIFT BRY Discontinued Medications Generic Name Dose Route Start Last Admin Trade Name Freq PRN Reason Stop Dose Admin Furosemide 20 mg 09/02/24 20:52 09/03/24 00:06 Furosemide 20 Mg/2 Ml Vial IVPUSH 09/02/24 20:53 20 mg ONCE ONE Administration Protocol Morphine Sulfate 2 mg 09/02/24 20:57 09/02/24 21:07 Morphine Sulfate 2 Mg/Ml Cartridge IVPUSH 09/02/24 20:58 2 mg ONCE ONE Administration Protocol Medical Decision Making Medical Decision Making MDM Narrative: Patient has cellulitis of both lower extremities with fluid overload will start patient on vancomycin admit Differential Diagnosis Differential Diagnoses: The differential diagnosis associated with the presentation includes Admission/Observation Consideration of admission/observation: Escalation of care including admission/observation considered Consult Healthcare Provider Management of the patient was discussed with: Hospitalist Lab Data [facility] Lab Attestation statement: I reviewed the patient's lab results. 09/02/24 18:39 09/02/24 18:39 Labs: Lab Results 09/02/24 Range/Units 18:39 WBC 14.6 H (4.8-10.8) X10*3/uL RBC 3.82 L (4.20-5.50) X10*6/uL Hgb 10.9 L (12.0-16.0) g/dl Hct 32.8 L (37.0-47.0) % MCV 85.9 (80.0-98.0) fL MCH 28.5 (27.0-33.0) pg MCHC 33.2 (31.0-35.0) g/dl RDW 14.3 (11.0-16.0) % Plt Count 329 D (160-400) X10*3/uL MPV 9.4 (9.4-12.3) fL Immature Gran % (Auto) 0.9 H (0.0-0.4) % Neut % (Auto) 67.4 (45-73) % Lymph % (Auto) 19.1 L (20-40) % [place] % (Auto) 8.3 (2-11) % Eos % (Auto) 3.6 (0-4) % Baso % (Auto) 0.7 (0-2) % Lymph # (Auto) 2.8 (1.2-4.9) X10*3/uL [place] # (Auto) 1.2 (0.1-1.2) X10*3/uL Eos # (Auto) 0.5 H (0.0-0.4) X10*3/uL Baso # (Auto) 0.1 (0.0-0.2) X10*3/uL Abs Immat Gran (auto) 0.13 H (0.00-0.03) X10*3/uL Absolute Neuts (auto) 9.9 H (2.0-8.3) x10*3/uL Absolute Nucleated RBC 0.000 (0.0-0.012) X10*3/uL Nucleated RBC % (auto) 0.0 (0.0-0.2) /100WBC Smear Tech's Comments VERIFIED Sodium 140 (135-145) mmol/L Potassium 4.0 (3.3-5.1) mmol/L Chloride 110 H (96-108) mmol/L Carbon Dioxide 20 L (22-29) mmol/L Anion Gap 14 (12-20) BUN 23 H (9-16) mg/dL Creatinine 0.88 (0.5-1.4) mg/dL Estim Creat Clear Calc 52.6 Estimated GFR > 60 Random Glucose 121 H (60-115) mg/dL Lactic Acid 2.0 (0.5-2.0) mmol/L Calcium 9.1 D (8.4-10.2) mg/dL Magnesium 1.9 (1.6-2.6) mg/dL Total Bilirubin 0.3 (0.0-1.0) mg/dL AST 19 (5-31) U/L ALT 16 (0-31) U/L Alkaline Phosphatase 54 (39-117) U/L Troponin I High Sens 11.5 D (<3.5-17.0) ng/L B-Natriuretic Peptide 72 (<100) pg/mL Total Protein 7.4 (6.5-8.0) g/dL Albumin 3.6 (3.5-5.0) g/dL Independent Interpretation I performed an independent interpretation of an: EKG Interpretation: Normal sinus rhythm heart rate 87 beats per minute left axis deviation no acute STT wave changes no acute ischemia Radiology Impression Discussion of test interpretation with radiology: I have reviewed the radiologist's reading. Radiologist Impression: NAD Discharge Plan Discharge Clinical Impression: Cellulitis, Leg edema Patient Disposition: Admitted As Inpatient
--- NOTE | 2024-09-02 18:19 | ECG_ITS ---
Test Reason : ?CHF Blood Pressure : */* mmHG Vent. Rate : 87 BPM Atrial Rate : * BPM P-R Int : * ms QRS Dur : 82 ms QT Int : 356 ms P-R-T Axes : * -49 28 degrees QTcB Int : 428 ms Baseline artifact Undetermined rhythm Left axis deviation Nonspecific ST and T wave abnormality Abnormal ECG When compared with ECG of 21-Aug-2024 23:14, No significant changes seen Referred By: John De La Paz Electronically Signed By: WASHINGTON LYNN
[2024-09-02 18:46] LABS: PLT CLUMP 1; SCAN SMEAR FLAG 1
[2024-09-02 18:51] LABS: Basophils Absolute Auto 0.1 X10*3/uL (0.0-0.2); Basophils Percent Auto 0.7 % (0-2); Mean Corpuscular HGB Conc 33.2 g/dl (31.0-35.0); Mean Corpuscular Hemoglobin 28.5 pg (27.0-33.0); Red Cell Distribution Width 14.3 % (11.0-16.0)
[2024-09-02 18:53] LABS: Eosinophils Absolute Auto 0.5 X10*3/uL (0.0-0.4); Eosinophils Percent Auto 3.6 % (0-4); Hematocrit 32.8 % (37.0-47.0); Hemoglobin 10.9 g/dl (12.0-16.0); Imm Gran Abs Auto 0.13 X10*3/uL (0.00-0.03); Imm Gran Pct Auto 0.9 % (0.0-0.4); Lymphocytes Absolute Auto 2.8 X10*3/uL (1.2-4.9); Lymphocytes Percent Auto 19.1 % (20-40); MANUAL DIFF FLAG SCAN; Mean Corpuscular Volume 85.9 fL (80.0-98.0); Mean Platelet Volume 9.4 fL (9.4-12.3); Monocytes Absolute Auto 1.2 X10*3/uL (0.1-1.2); Monocytes Percent Auto 8.3 % (2-11); Neutrophils Absolute Auto 9.9 x10*3/uL (2.0-8.3); Neutrophils Percent Auto 67.4 % (45-73); Red Blood Count 3.82 X10*6/uL (4.20-5.50)
[2024-09-02 18:55] LABS: White Blood Count 14.6 X10*3/uL (4.8-10.8)
[2024-09-02 19:08] LABS: Alanine Aminotransferase 16 U/L (0-31); Albumin Level 3.6 g/dL (3.5-5.0); Alkaline Phosphatase 54 U/L (39-117); Anion Gap 14 (12-20); Aspartate Amino Transferase 19 U/L (5-31); Bilirubin Total 0.3 mg/dL (0.0-1.0); Blood Urea Nitrogen 23 mg/dL (9-16); Calcium 9.1 mg/dL (8.4-10.2); Carbon Dioxide 20 mmol/L (22-29); Chloride 110 mmol/L (96-108); Creatinine Clr Calc Pharmacy 52.6; Estimated Glomerular Filt Rate > 60; Glucose Random 121 mg/dL (60-115); Magnesium 1.9 mg/dL (1.6-2.6); Sodium 140 mmol/L (135-145); Total Protein 7.4 g/dL (6.5-8.0)
[2024-09-02 19:14] LABS: B Type Natriuretic Peptide 72 pg/mL (<100)
[2024-09-02 19:15] LABS: Troponin-I High Sensitivity 11.5 ng/L (<3.5-17.0)
[2024-09-02 19:19] LABS: Platelet Count 329 X10*3/uL (160-400); SLIDE REVIEW VERIFIED
--- NOTE | 2024-09-02 20:02 | PC.NURSE ---
spoke with contact Buster Gonzáles. gave this RN a med list. emphasizes pt is not taking HCTZ
[2024-09-02 21:07] VITALS: RESP 16
[2024-09-02] MEDS: Morphine Sulfate 2 MG/ML CARTRIDGE IVPUSH (21:07)
--- NOTE | 2024-09-02 21:15 | PC.NURSE ---
spoke to yasmany BELTRAN. no vanco given yet. concern for possible allergy. RUBY told this RN that she will contact after convening with MD about alternative ABX. patient stable. meidcated for pain. transferred one assist to recliner
--- NOTE | 2024-09-02 21:31 | P.HPHOSP_ITS ---
History of Present Illness Date of Service: 09/02/24 Attending physician on admission: [facility] Chief Complaint: worsening cellulitis Patient is a 84-year-old female with a past medical history significant for dementia, hypothyroid, HTN, tyv-buvuitf-cfcfgrsec diabetes, mixed hyperlipidemia, presented to the ED due to worsening bilateral lower extremity cellulitis and edema. The patient was recently admitted from 08/22/24-08/27/24 for UTI/diverticulitis/cellulitis and suggested d/c to nursing facility but pt reports that she went home and lives alone. she reported to triage that she ran out of her medications today and has not taken them and does not know her medical history or medications. she states that the erythema and edema in her lower extremities has been worsening over the past few days and has been traveling up to the knee. she continues to complain of low back pain related to the stretcher, and was transferred to the patient chair while in the ED. She is unable to give me a history as she is too distracted by others in the ED and her back pain as well as she is encephalopathic. She denied SOB, fever, chills, or chest pain. Review of Systems 2 Constitutional: Constitutional: Denies body ache(s), Denies chills, Denies fatigue, Denies fever(s) and Denies headache(s) Eyes: Eyes: Denies change in vision and Denies photophobia ENT: Denies headache(s), Denies nasal congestion, Denies nasal discharge and Denies sore throat Cardiovascular: Cardiovascular: Denies chest pain, Denies rapid heart rate, Reports leg edema, Denies lightheadedness and Denies dyspnea Respiratory: Respiratory: Denies chest congestion, Denies cough, Denies dyspnea and Denies wheezing Gastrointestinal: Gastrointestinal: Denies diarrhea, Denies nausea and Denies vomiting Genitourinary: Genitourinary: Denies hematuria, Denies difficulty voiding, Denies dysuria and Denies urinary urgency Musculoskeletal: Musculoskeletal: Reports back pain Integumentary/Breasts: Skin/Breast: Reports as per HPI Neurologic: Denies headache(s) and Reports memory loss Psychiatric: Psychiatric: Reports memory loss Endocrine: Endocrine: Denies fatigue Hematologic/Lymphatic: Hematologic/Lymphatic: Denies easy bleeding and Denies easy bruising Allergic/Immunologic: Allergic/Immunologic: Denies wheezing PMFSH Medical History Umbilical hernia Diabetes mellitus with hyperglycemia Non compliance w medication regimen Hypothyroid Diabetes type 2, controlled Essential hypertension Fibromyalgia Sleep apnea Asthma Hypertension Functional capacity: uses cane/walker Surgical History History of tooth extraction History of left hip replacement History of cholecystectomy History of thyroidectomy Social History Household Members: None Housing: House Do you presently have visiting nurse or other home services: No Alcohol intake: never Patient Tobacco Use Status: Never used Tobacco e-Cigarette/Vaping Use: Never Used Second Hand Smoke Exposure: No Advance Directives: Yes Advance Directives on File: Yes Advance Directives Date on File: 11/02/21 service: No Current occupational status: retired Cognitive needs: Yes (cane) Hearing needs: No Vision needs: Yes (glasses) Meds Allergies Allergy/AdvReac Type Severity Reaction Status Date / Time bee pollen [bee stings] Allergy Severe Anaphylaxis Verified 09/02/24 18:09 Iodinated Contrast Media Allergy Severe Anaphylaxis Verified 09/02/24 18:09 [IV CONTRAST] THERMONOL Allergy Severe ANAPHYLATIC, Verified 09/02/24 18:09 BRUISING metformin [METFORMIN] Allergy Unknown UNKNOWN Verified 09/02/24 18:09 oxybutynin Allergy Unknown Unknown Verified 09/02/24 18:09 Penicillins [PENICILLINS] Allergy Unknown UNKNOWN Verified 09/02/24 18:09 solifenacin [Vesicare] Allergy Unknown Unknown Verified 09/02/24 18:09 gluten [GLUTEN] AdvReac Intermediate STOMACH Verified 09/02/24 18:09 UPSET insulin detemir AdvReac Unknown BRUISES Verified 09/02/24 18:09 lisinopril [From ZESTRIL] AdvReac Unknown COUGH Verified 09/02/24 18:09 metoprolol [METOPROLOL] AdvReac Unknown SEVERE Verified 09/02/24 18:09 ANGINA Active Medications: Current Medications Doxycycline Hyclate 100 mg/ (Sodium Chloride) 250 mls @ 166.67 mls/hr IV Q12H [facility] Home Medications ?Medication ?Instructions ?Recorded ?Confirmed ?Last Taken ?Type aspirin 81 mg tablet,delayed 81 mg PO DAILY 08/22/24 08/22/24 Unknown History release glipizide 10 mg tablet 10 mg PO DAILY 08/22/24 08/22/24 Unknown History levothyroxine 75 mcg tablet 75 mcg PO DAILY@0600 08/22/24 08/22/24 Unknown History losartan 100 mg tablet 100 mg PO DAILY 08/22/24 08/22/24 Unknown History metformin 1,000 mg tablet 1,000 mg DAILY@0800 08/22/24 08/22/24 Unknown History metoprolol succinate 25 mg 25 mg PO DAILY 08/22/24 08/22/24 Unknown History tablet,extended release 24 hr nitroglycerin 0.4 mg sublingual 0.4 mg sublingual Q5M PRN Chest 08/22/24 08/22/24 Unknown History tablet Pain Physical Exam 2 Vital Signs and Narrative: Vital Signs: Last Vital Signs Temp 97.8 F 09/02/24 18:01 Pulse 71 09/02/24 18:01 Resp 16 09/02/24 21:07 BP 154/67 H 09/02/24 18:01 Pulse Ox 100 09/02/24 18:01 O2 Del Method Room Air 09/02/24 18:01 BMI result Body Mass Index 34.1 General: AOx3, no acute distress Resp: CTA bilaterally CVS: S1, S2, RRR GI: +BS, NT, no distention Skin: Warm, dry. patchy erythema bilateral upper extremities and neck with cellulitic erythema and 3+ edema with warmth bilateral lower extremities. no wound on low back or pain with palpation. Neuro: Cranial nerves II-XII grossly intact bilaterally. Motor grossly intact bilaterally Extremities: see skin exam. Psych: Appropriate affect Eyes: Direct Ophthalmoscopy: No photophobia Results Labs 09/02/24 18:39 09/02/24 18:39 Labs: Laboratory Results - last 24 hr 09/02/24 18:39 MCV 85.9 MCH 28.5 MCHC 33.2 RDW 14.3 Plt Count 329 D MPV 9.4 Immature Gran % (Auto) 0.9 H Neut % (Auto) 67.4 Lymph % (Auto) 19.1 L [place] % (Auto) 8.3 Eos % (Auto) 3.6 Baso % (Auto) 0.7 Lymph # (Auto) 2.8 [place] # (Auto) 1.2 Eos # (Auto) 0.5 H Baso # (Auto) 0.1 Abs Immat Gran (auto) 0.13 H Absolute Neuts (auto) 9.9 H Absolute Nucleated RBC 0.000 Nucleated RBC % (auto) 0.0 Smear Tech's Comments VERIFIED Anion Gap 14 Estim Creat Clear Calc 52.6 Estimated GFR > 60 Random Glucose 121 H Lactic Acid 2.0 Calcium 9.1 D Magnesium 1.9 Total Bilirubin 0.3 AST 19 ALT 16 Alkaline Phosphatase 54 B-Natriuretic Peptide 72 Total Protein 7.4 Albumin 3.6 Assessment and Plan (1) Metabolic encephalopathy: Status: Acute (2) Cellulitis: Status: Acute (3) Metabolic acidosis: Status: Acute (4) Pulmonary edema: Status: Acute (5) Chronic back pain: Status: Acute (6) Anemia: Status: Acute (7) Obesity (BMI 30.0-34.9): Status: Chronic Plan Patient is a 84-year-old female with a past medical history significant for dementia, hypothyroid, HTN, uhs-imdskod-gcaexjqua diabetes, mixed hyperlipidemia, presented to the ED due to worsening bilateral lower extremity cellulitis and edema. The patient was recently admitted from 08/22/24-08/27/24 for UTI, diverticulitis and cellulitis and suggested d/c to nursing facility but pt reports that she went home and lives alone. she reported to triage that she ran out of her medications today and has not taken them and does not know her medical history or medications. history is difficult to obtain, due to dementia and possibly metabolic encephalopathy. metabolic encephalopathy/acidosis secondary to bilateral LE cellulitis - WBC 14.6, vitals stable, lactic acid 2.0 (likely due to metformin), blood cultures x2 pending, no sepsis - recently admitted for UTI/diverticulitis/cellulitis, ?reaction to ceftriaxone, also did get vanco. ultimately switched to levaquin and flagyl at that time - labs with metabolic acidosis, fluids deferred due to pulmonary edema and LE edema, BP stable. metformin can be contributing. - start doxycycline 100mg Q12H for cellulitis - monitor CBC and BMP pulmonary edema - no dx of CHF - pt denies any SOB or upper respiratory sx - pt states she ran out of her medications but does not take any diuretics - BNP 72 - given 20mg IV lasix in ED - echo - monitor BMP chronic back pain - no wounds on low back during exam or significant pain with exam - transfer to hospital bed for comfort - tylenol PRN for pain anemia - H+H stable, no need for transfusion - monitor CBC obesity - BMI 34.1 - weight loss encouraged hypothyroid - continue levothyroxine HTN - continue losartan and metoprolol Diabetes - hold glipizide and metformin - sliding scale insulin - diabetic diet HLD - continue atorvastatin DNR/DNI VTE prophylaxis: Lovenox Patient with acute metabolic encephalopathy secondary to bilateral lower extremity cellulitis, failed outpatient treatment, complicated by pulmonary edema, requiring admission for at least 2 midnights stay for IV antibiotics, further workup and monitoring. Quality Stroke Does the patient have a stroke diagnosis?: No VTE Prior VTE?: No VTE Risk Level:: Medical - moderate - high VTE Device Contraindication: Treatment Not Indicated VTE Drug Contraindication: N/A - Med Ordered
[2024-09-02 21:35] VITALS: RESP 18
[2024-09-02] MEDS: Doxycycline Hyclate 100 MG in 0.9 % Sodium Chloride 250 ML 166.67 MG IV (22:07)
[2024-09-03 00:02] VITALS: BP 156/60; PULSE 86; RESP 16; TEMP 36.6; O2SAT 99
[2024-09-03] MEDS: Melatonin 3 MG TABLET 6 MG PO (00:04)
[2024-09-03] MEDS: Acetaminophen 325 MG TABLET 975 MG PO (00:04)
[2024-09-03] MEDS: Furosemide 20 MG/2 ML VIAL IVPUSH (00:06)
[2024-09-03] MEDS: Enoxaparin Sodium 40 MG/0.4 ML SYRINGE SUBCUT ×2 (00:06→22:09)
[2024-09-03 00:43] LABS: Glucose, Whole Blood 118 mg/dL (60-115)
--- NOTE | 2024-09-03 01:47 | PC.NURSE ---
tolerated ambulation one assist to toilet with walker. insists on sleeping in recliner. legs elevated. call nieves in reach
[2024-09-03 06:37] LABS: MANUAL DIFF FLAG NO
[2024-09-03 06:46] LABS: Basophils Absolute Auto 0.1 X10*3/uL (0.0-0.2); Basophils Percent Auto 0.7 % (0-2); Eosinophils Absolute Auto 0.6 X10*3/uL (0.0-0.4); Eosinophils Percent Auto 5.2 % (0-4); Hematocrit 30.6 % (37.0-47.0); Hemoglobin 10.1 g/dl (12.0-16.0); Imm Gran Pct Auto 0.8 % (0.0-0.4); Lymphocytes Percent Auto 24.9 % (20-40); Mean Corpuscular Hemoglobin 28.7 pg (27.0-33.0); Mean Corpuscular Volume 86.9 fL (80.0-98.0); Monocytes Percent Auto 8.4 % (2-11); Neutrophils Absolute Auto 7.3 x10*3/uL (2.0-8.3); Platelet Count 298 X10*3/uL (160-400); Red Blood Count 3.52 X10*6/uL (4.20-5.50); Red Cell Distribution Width 14.2 % (11.0-16.0); White Blood Count 12.2 X10*3/uL (4.8-10.8)
[2024-09-03 06:59] LABS: Anion Gap 14 (12-20); Blood Urea Nitrogen 19 mg/dL (9-16); Calcium 8.6 mg/dL (8.4-10.2); Carbon Dioxide 22 mmol/L (22-29); Chloride 110 mmol/L (96-108); Creatinine Clr Calc Pharmacy 55.8; Estimated Glomerular Filt Rate > 60; Glucose Random 109 mg/dL (60-115); Potassium 3.9 mmol/L (3.3-5.1); Sodium 142 mmol/L (135-145)
[2024-09-03 07:10] LABS: Glucose, Whole Blood 107 mg/dL (60-115)
--- NOTE | 2024-09-03 08:16 | PC.NURSE ---
Pt assisted to a stretcher instead of recliner. Stated her back was hurting. was able to stand to walker w/o assist. Legs are swollen, cellulitic. Now elevated
[2024-09-03 08:33] VITALS: BP 142/37; PULSE 60; RESP 16; O2SAT 100
[2024-09-03 09:00] LABS: C Reactive Protein 1.56 mg/dL (< or = 0.50)
[2024-09-03] MEDS: vancomycin/NS 2,000 MG/500 ML PLAST..BAG 250 MG IV (09:38)
--- NOTE | 2024-09-03 09:43 | PC.NURSE ---
assumed care of patient at 0700. patient is awake and alert, resp even and unlabored. patient is pleasantly confused, oriented to self and place. patient noted bilateral lower legs are red, warm to the touch swollen. patient arms noted to have red blotchy patches, noted to be warm to the touch. nothing noted on patient abdomen/chest. inpatient attending made aware.
--- NOTE | 2024-09-03 09:55 | PHA.MEDREC ---
Pharmacy Consult ? Medication Reconciliation Pharmacy has completed the medication reconciliation. Spoke to Atif Gonzáles (primary contact/HCP) over the phone to confirm medication. Per Nivia, pt has finished the levofloxacin and metronidazole, she is NOT taking hctz and last dose of medications was yesterday.
--- NOTE | 2024-09-03 10:48 | PC.NURSE ---
inpatient provider requested vanco to be d/c, vanco stopped, iv line flushed. awaiting new orders for antibiotics at this time. patient shows no acute signs of distress, resting quietly, resp even and unlabored
[2024-09-03 12:14] VITALS: BP 132/32; PULSE 66; RESP 16; O2SAT 100
[2024-09-03 12:18] LABS: Glucose, Whole Blood 132 mg/dL (60-115)
--- NOTE | 2024-09-03 12:34 | P.PNIM_ITS ---
Subjective Subjective Date of Service: 09/03/24 Interval History: bilateral leg redness/swelling, R>L faint splotches of red on upper arms that started over weekend, not itchy no fever no abd pain Review of Systems Review of Systems: Yes all other systems are reviewed and are negative Physical Exam 2 Vital Signs: Vital Signs: Last Vital Signs Temp 97.9 F 09/03/24 00:02 Pulse 66 09/03/24 12:14 Resp 16 09/03/24 12:14 BP 132/32 L 09/03/24 12:14 Pulse Ox 100 09/03/24 12:14 O2 Del Method Room Air 09/03/24 12:14 BMI result Body Mass Index 34.1 Gen: in no acute distress HEENT: sclera anicteric, moist mucus membranes Neck: supple Lungs: clear to auscultation bilaterally Heart: regular rate and rhythm, no murmurs Abd: soft, non-tender, non-distended Ext: 2+ BLE edema Skin: bright red erythema of bilateral legs R>L; patchy blanching faint erythematous macules on upper arms Neuro: alert and oriented x3, no focal findings Psych: appropriate affect Objective Data Active Medications Acetaminophen (Acetaminophen 325 Mg Tablet) 975 mg PO Q6H PRN PRN Reason: Pain, Mild 1-3,fever,headache Last Admin: 09/03/24 00:04 Dose: 975 mg Documented By: ABDIAIZZ Calcium Carbonate (Calcium Carbonate 750 Mg Tab.Chew) 750 mg PO Q4H PRN PRN Reason: Heartburn Dextrose (Dextrose 50 % 25 Gm/50 Ml Syringe) 25 gm IVPUSH Q15M PRN; Protocol PRN Reason: per Hypoglycemia Standing Ord. Enoxaparin Sodium (Enoxaparin Sodium 40 Mg/0.4 Ml Syringe) 40 mg SUBCUT Q24H BRY Last Admin: 09/03/24 00:06 Dose: 40 mg Documented By: ABDIAZIZ Glucose (Glucose Gel 15 Gm Gel..Gram.) 15 gm PO Q15M PRN; Protocol PRN Reason: per Hypoglycemia Standing Ord. Linezolid (Zyvox/D5w) 600 mg in 300 mls @ 300 mls/hr IV Q12H BRY Insulin Human Lispro (Insulin Lispro 100 Unit/Ml 3 Ml Vial) 0 unit SUBCUT QIDACHS [facility]; Protocol Last Admin: 09/03/24 07:22 Dose: Not Given Documented By: ALIYA Non-Admin Reason: No Insulin Coverage Magnesium Hydroxide (Milk Of Magnesia 30 Ml Oral.Susp) 30 ml PO DAILY PRN PRN Reason: Constipation Melatonin (Melatonin 3 Mg Tablet) 6 mg PO BEDTIME PRN PRN Reason: Insomnia Last Admin: 09/03/24 00:04 Dose: 6 mg Documented By: ABDIAZIZ Ondansetron HCl (Ondansetron Hcl 4 Mg/2 Ml Vial) 4 mg IVPUSH Q8H PRN PRN Reason: Nausea and Vomiting Sodium Chloride (0.9 % Sodium Chloride Flush 3 Ml Syringe) 3 ml IVFLUSH QSHIFT [facility] Last Admin: 09/03/24 07:22 Dose: Not Given Documented By: ALIYA Non-Admin Reason: See Note Labs 09/03/24 06:00 09/03/24 06:00 Labs: Laboratory Results - last 24 hr 09/02/24 09/03/24 09/03/24 18:39 00:37 06:00 MCV 85.9 86.9 MCH 28.5 28.7 MCHC 33.2 33.0 RDW 14.3 14.2 Plt Count 329 D 298 MPV 9.4 9.0 L Immature Gran % (Auto) 0.9 H 0.8 H Neut % (Auto) 67.4 60.0 Lymph % (Auto) 19.1 L 24.9 [place] % (Auto) 8.3 8.4 Eos % (Auto) 3.6 5.2 H Baso % (Auto) 0.7 0.7 Lymph # (Auto) 2.8 3.0 [place] # (Auto) 1.2 1.0 Eos # (Auto) 0.5 H 0.6 H Baso # (Auto) 0.1 0.1 Abs Immat Gran (auto) 0.13 H 0.10 H Absolute Neuts (auto) 9.9 H 7.3 Absolute Nucleated RBC 0.000 0.000 Nucleated RBC % (auto) 0.0 0.0 Smear Tech's Comments VERIFIED Anion Gap 14 14 Estim Creat Clear Calc 52.6 55.8 Estimated GFR > 60 > 60 POC Glucose 118 H Random Glucose 121 H 109 Lactic Acid 2.0 Calcium 9.1 D 8.6 Magnesium 1.9 Total Bilirubin 0.3 AST 19 ALT 16 Alkaline Phosphatase 54 C-Reactive Protein 1.56 H B-Natriuretic Peptide 72 Total Protein 7.4 Albumin 3.6 09/03/24 09/03/24 07:05 12:13 MCV MCH MCHC RDW Plt Count MPV Immature Gran % (Auto) Neut % (Auto) Lymph % (Auto) [place] % (Auto) Eos % (Auto) Baso % (Auto) Lymph # (Auto) [place] # (Auto) Eos # (Auto) Baso # (Auto) Abs Immat Gran (auto) Absolute Neuts (auto) Absolute Nucleated RBC Nucleated RBC % (auto) Smear Tech's Comments Anion Gap Estim Creat Clear Calc Estimated GFR POC Glucose 107 132 H Random Glucose Lactic Acid Calcium Magnesium Total Bilirubin AST ALT Alkaline Phosphatase C-Reactive Protein B-Natriuretic Peptide Total Protein Albumin Assessment and Plan (1) Cellulitis: Status: Acute Assessment and Plan: d2 for 84yo F with dementia, hypothyroidism, HTN, DM2, and HLD; recent admission 08/22-08/27/24 for UTI, diverticulitis, and cellulitis and discharged home after refusing STR plcaement presents with worsening redness of legs after completing doxycycline course admitted for cellulitis bilateral leg cellulitis - follow BCx, had rash with ceftriaxone last admission, discharged on levofloxacin, got 1 dose doxycycline here, will change to linezolid for better Gram-positive coverage 09/03- encephalopathy due to infection - resolved question of pulmonary edema on CXR - BNP normal, no hx CHF; was given 20 mg of IV furosemide in ED; will check TTE normocytic anemia - chronic, stable hypothyroidism - continue LT4 HTN - losartan, metoprolol succinate HLD - statin DM2 - hold MTF + GPZ, give karin-dose lispro VTE prophylaxis - enoxaparin dispo - PT consulted: plan home with VNA In my clinical judgment, the patient requires continued inpatient hospitalization for the following reasons: IV ABX Quality Stroke Does the patient have a stroke diagnosis?: No VTE Prior VTE?: No VTE Risk Level:: Medical - moderate - high VTE Device Contraindication: Treatment Not Indicated VTE Drug Contraindication: N/A - Med Ordered
[2024-09-03] MEDS: Metoprolol Succinate ER 25 MG TAB.ER.24H PO (14:04)
[2024-09-03] MEDS: Atorvastatin Calcium 10 MG TABLET PO (14:04)
[2024-09-03] MEDS: Levothyroxine Sodium 75 MCG TABLET PO (14:04)
[2024-09-03] MEDS: Aspirin Enteric Coated 81 MG TABLET.DR PO (14:04)
[2024-09-03] MEDS: Losartan Potassium 50 MG TABLET 100 MG PO (14:04)
[2024-09-03] MEDS: Linezolid/D5W 600 MG/300 ML PIGGYBACK 300 MG IV ×2 (14:05→22:16)
[2024-09-03 14:07] VITALS: BP 140/117; PULSE 68; RESP 20; TEMP 36.6; O2SAT 99
--- NOTE | 2024-09-03 15:43 | PC.NURSE ---
patient transitioned from recliner to wheelchair for transport using walker and standby assist. patient ate her lunch tray- no insulin covreage
[2024-09-03 15:58] VITALS: BP 136/59; PULSE 67; RESP 18; TEMP 36.1; O2SAT 100
[2024-09-03 15:59] VITALS: BMI 34.1
[2024-09-03] MEDS: 0.9 % Sodium Chloride Flush 3 ML SYRINGE IVFLUSH (16:10)
[2024-09-03 16:19] LABS: Glucose, Whole Blood 284 mg/dL (60-115)
[2024-09-03] MEDS: Insulin Lispro 100 UNIT/ML 3 ML VIAL SUBCUT (16:19)
[2024-09-03 19:34] VITALS: BP 159/69; PULSE 66; RESP 18; TEMP 36.4; O2SAT 100
[2024-09-03 20:52] LABS: Glucose, Whole Blood 150 mg/dL (60-115)
[2024-09-04 03:21] VITALS: BP 135/59; PULSE 63; RESP 18; TEMP 36.3; O2SAT 98
[2024-09-04] MEDS: Acetaminophen 325 MG TABLET 975 MG PO (04:53)
[2024-09-04] MEDS: Levothyroxine Sodium 75 MCG TABLET PO (04:53)
[2024-09-04 06:26] LABS: MANUAL DIFF FLAG NO
[2024-09-04 06:29] LABS: Basophils Absolute Auto 0.1 X10*3/uL (0.0-0.2); Basophils Percent Auto 0.8 % (0-2); Eosinophils Absolute Auto 0.6 X10*3/uL (0.0-0.4); Eosinophils Percent Auto 5.7 % (0-4); Hematocrit 29.5 % (37.0-47.0); Hemoglobin 9.5 g/dl (12.0-16.0); Imm Gran Abs Auto 0.09 X10*3/uL (0.00-0.03); Imm Gran Pct Auto 0.9 % (0.0-0.4); Lymphocytes Absolute Auto 2.8 X10*3/uL (1.2-4.9); Lymphocytes Percent Auto 28.9 % (20-40); Mean Corpuscular HGB Conc 32.2 g/dl (31.0-35.0); Mean Platelet Volume 9.2 fL (9.4-12.3); Monocytes Absolute Auto 0.8 X10*3/uL (0.1-1.2); Monocytes Percent Auto 8.4 % (2-11); Neutrophils Absolute Auto 5.4 x10*3/uL (2.0-8.3); Neutrophils Percent Auto 55.3 % (45-73); Platelet Count 299 X10*3/uL (160-400); Red Blood Count 3.39 X10*6/uL (4.20-5.50); Red Cell Distribution Width 14.2 % (11.0-16.0); White Blood Count 9.7 X10*3/uL (4.8-10.8)
[2024-09-04 06:47] LABS: Anion Gap 12 (12-20); Blood Urea Nitrogen 16 mg/dL (9-16); Calcium 8.4 mg/dL (8.4-10.2); Carbon Dioxide 24 mmol/L (22-29); Chloride 108 mmol/L (96-108); Creatinine Clr Calc Pharmacy 54.5; Estimated Glomerular Filt Rate > 60; Glucose Random 164 mg/dL (60-115); Potassium 4.1 mmol/L (3.3-5.1); Sodium 140 mmol/L (135-145)
[2024-09-04] MEDS: 0.9 % Sodium Chloride Flush 3 ML SYRINGE IVFLUSH ×3 (06:57→22:18)
--- NOTE | 2024-09-04 07:00 | CA_ITS ---
Transthoracic Echocardiogram Patient (Last, First, Middle): Ro Clark, Gender: Female Date of : 1940 Age: 84 Procedure Date: 09/04/2024 Procedure Type: Transthoracic Echocardiogram Location: E Height: 165.1 cm Weight: 92.99 kg BSA: 2.00 m2 Heart Rate: bpm BP: 156 / 60 mmHg Pound Attendant: SB Referring MD: Shannon Pineda PA-C Symptoms: pulmonary edema, no CHF dx Study Quality: Fair ECG Rhythm: Sinus Conclusions: - The visually estimated ejection fraction is between 65-70%. - There is moderate aortic valve stenosis. - There is moderate mitral annular calcification. Findings Left Ventricle Normal left ventricular cavity size. The left ventricular systolic function is normal. The visually estimated ejection fraction is between 65-70%. There is no evidence of regional wall motion abnormalities. There is moderate septal asymmetric hypertrophy. Right Ventricle Normal right ventricular cavity size and systolic function. Atria Both atria are normal in size. Aortic Valve There is moderate calcification of the aortic valve. There is moderate aortic valve stenosis. The peak aortic velocity is 3.57 m/s with a calculated peak gradient of 51 mmHg. The mean gradient is 30 mmHg. The aortic valve area is 0.99 cm2. There is no aortic valve regurgitation. Dimensionless index 0.3. Stroke volume index 45 mL/m2. Mitral Valve There is moderate mitral annular calcification. There is mild mitral valve regurgitation. There is no mitral valve stenosis. Pulmonic Valve The pulmonic valve is likely normal. Tricuspid Valve There is trace tricuspid valve regurgitation. Tricuspid regurgitation envelope is inadequate for calculation of right ventricular systolic pressure. Great Vessels The asc aorta is normal in size. Venous The inferior vena cava is normal in size and collapses greater than 50% with inspiration. Pericardium/Pleural There is no evidence of pericardial effusion. Prior Study Comparison No prior study available for comparison. Measurements 2D Linear Measurements IVSd: 1.32 0.6-0.9/0.6-1.0 cm LVIDd: 4.26 3.9-5.3/4.2-5.9 cm LVIDd Index: 2.13 2.4-3.2/2.2-3.1 cm/m2 LVIDs: 2.84 2.0-3.6 cm LVPWd: 0.82 0.7-1.1 cm LA Diam: 4.60 2.7-3.8/3.0-4.0 cm LAIDs Index: 2.30 1.5-2.3 cm/m2 LV Mass: 192.61 67-162/88-224 g LV Mass Index: 96.31 43-95/49-115 g/m2 LVOT Diam: 2.10 3.0+(-)1.3 cm 2D Systolic Function EF 4C: 61.40 >55% EF 2C: 71.70 >55% Mitral Valve MV VTI: 0.52 MV Pk Frank: 1.45 MV Mn Frank: 0.94 MV Pk Grad: 8.00 MV Mn Grad: 4.00 MV Pk E: 1.26 MV PK A: 1.33 MV Decel Time: 310.00 E/A: 0.90 E'Lateral: 6.31 E'Medial: 4.46 E/E' Med: 28.30 E/E' Lat: 20.00 PHT: 91.00 MVA PHT: 2.42 MVA Continuity: 1.74 Decel [place]: 4.07 Aortic Valve AoV Pk Frank: 3.57 AoV Mn Frank: 2.62 AoV VTI: 0.92 AoV Pk Grad: 51.00 Aov Mn Grad: 30.00 JORDEN Cont.VTI: 0.99 LVOT LVOT Pk Frank: 1.07 LVOT Mn Frank: 0.72 LVOT VTI: 0.26 LVOT Pk Grad: 5.00 LVOT Mn Grad: 3.00 LVOT Diam: 2.10 LVOT Area: 3.46 Diastolic Function MV Pk E: 1.26 MV Pk A: 1.33 E/A: 0.90 E'Medial: 4.46 E/E' Med: 28.30 E' Laterial: 6.31 E/E' Lat: 20.00 Right Ventricle TAPSE (mm): 21.90 TVS' Frank: 11.30 Great Vessels Aorta Sinus of Valsalva: 2.80 2.0-3.5 cm Ao Asc: 3.50 2.1-3.4 cm Pulmonary Valve PV Pk Frank: 0.85 Peak PV Grad: 3.00 Updated in Other Vendor System with Status of Final Jl Fabian MD electronically signed on 09/04/2024 10:30:19 AM with status of Final
[2024-09-04 07:31] VITALS: BP 124/56; PULSE 83; RESP 16; TEMP 36; O2SAT 98
[2024-09-04] MEDS: Atorvastatin Calcium 10 MG TABLET PO (07:36)
[2024-09-04] MEDS: Aspirin Enteric Coated 81 MG TABLET.DR PO (07:37)
[2024-09-04] MEDS: Losartan Potassium 50 MG TABLET 100 MG PO (07:37)
[2024-09-04] MEDS: Metoprolol Succinate ER 25 MG TAB.ER.24H PO (07:37)
[2024-09-04 07:44] LABS: Glucose, Whole Blood 164 mg/dL (60-115)
[2024-09-04] MEDS: Insulin Lispro 100 UNIT/ML 3 ML VIAL SUBCUT ×3 (07:52→21:05)
[2024-09-04 08:01] LABS: Immature Retic Fraction 18.8 % (3.0-15.9); Retic HGB Equivalent 30.2 pg (30.0-35.0); Reticulocyte Percent 2.9 % (0.5-1.8); Reticulocytes Absolute 0.096 X10*6/uL (0.026-0.095)
[2024-09-04 08:16] LABS: Iron 39 mcg/dL (30-160); Lactate Dehydrogenase 209 U/L (122-220); Percent Iron Saturation 19 % (15-50); Total Iron Binding Capacity 208 mcg/dL (228-428); Unsaturated Iron Binding 169 ug/dL
[2024-09-04 08:30] LABS: Ferritin 74 ng/mL (10-250)
[2024-09-04] MEDS: Linezolid/D5W 600 MG/300 ML PIGGYBACK 300 MG IV ×2 (10:24→22:15)
--- NOTE | 2024-09-04 10:52 | MHC.CM.PN ---
PT LIVES ALONE IS ACTIVE WITH [facility] HAS OWN RIDE HOME PT ADDIONALLY HAS BEEN ACCEPTED THRU [facility] FOR FRAIL ELDER WAIVER .PT HAS PRIVATE SUPPORT WELL ON Tue AND TUE 9 TO 2 AND TUE AFTERNOONS FOR 3 HRS [facility]
--- NOTE | 2024-09-04 11:06 | P.PNIM_ITS ---
Subjective Subjective Date of Service: 09/04/24 Interval History: redness + swelling of legs improving, pain improved, no fever no dyspnea Review of Systems Review of Systems: Yes all other systems are reviewed and are negative Physical Exam 2 Vital Signs: Vital Signs: Last Vital Signs Temp 96.8 F 09/04/24 07:31 Pulse 83 09/04/24 07:31 Resp 16 09/04/24 07:31 BP 124/56 L 09/04/24 07:31 Pulse Ox 98 09/04/24 07:31 O2 Del Method Room Air 09/04/24 07:31 BMI result Body Mass Index 34.1 Gen: in no acute distress HEENT: sclera anicteric, moist mucus membranes Neck: supple Lungs: clear to auscultation bilaterally Heart: regular rate and rhythm, no murmurs Abd: soft, non-tender, non-distended Ext: 1+ BLE edema Skin: erythema of bilateral legs R>L improving from yesterday; patchy blanching faint erythematous macules on upper arms Neuro: alert and oriented x3, no focal findings Psych: appropriate affect Objective Data Active Medications Acetaminophen (Acetaminophen 325 Mg Tablet) 975 mg PO Q6H PRN PRN Reason: Pain, Mild 1-3,fever,headache Last Admin: 09/04/24 04:53 Dose: 975 mg Documented By: MANJULA Aspirin (Aspirin Enteric Coated 81 Mg Tablet.) 81 mg PO DAILY [facility] Last Admin: 09/04/24 07:37 Dose: 81 mg Documented By: LUAN Atorvastatin Calcium (Atorvastatin Calcium 10 Mg Tablet) 10 mg PO DAILY [facility] Last Admin: 09/04/24 07:36 Dose: 10 mg Documented By: LUAN Calcium Carbonate (Calcium Carbonate 750 Mg Tab.Chew) 750 mg PO Q4H PRN PRN Reason: Heartburn Dextrose (Dextrose 50 % 25 Gm/50 Ml Syringe) 25 gm IVPUSH Q15M PRN; Protocol PRN Reason: per Hypoglycemia Standing Ord. Enoxaparin Sodium (Enoxaparin Sodium 40 Mg/0.4 Ml Syringe) 40 mg SUBCUT Q24H [facility] Last Admin: 09/03/24 22:09 Dose: 40 mg Documented By: MANJULA Glucose (Glucose Gel 15 Gm Gel..Gram.) 15 gm PO Q15M PRN; Protocol PRN Reason: per Hypoglycemia Standing Ord. Linezolid (Zyvox/D5w) 600 mg in 300 mls @ 300 mls/hr IV Q12H [facility] Last Admin: 09/04/24 10:24 Dose: 300 mls/hr Documented By: LUAN Insulin Human Lispro (Insulin Lispro 100 Unit/Ml 3 Ml Vial) 0 unit SUBCUT QIDACHS [facility]; Protocol Last Admin: 09/04/24 07:52 Dose: 2 unit Documented By: LUAN Levothyroxine Sodium (Levothyroxine Sodium 75 Mcg Tablet) 75 mcg PO DAILY@0600 [facility] Last Admin: 09/04/24 04:53 Dose: 75 mcg Documented By: MANJULA Losartan Potassium (Losartan Potassium 50 Mg Tablet) 100 mg PO DAILY [facility]; Protocol Last Admin: 09/04/24 07:37 Dose: 100 mg Documented By: LUAN Magnesium Hydroxide (Milk Of Magnesia 30 Ml Oral.Susp) 30 ml PO DAILY PRN PRN Reason: Constipation Melatonin (Melatonin 3 Mg Tablet) 6 mg PO BEDTIME PRN PRN Reason: Insomnia Last Admin: 09/03/24 00:04 Dose: 6 mg Documented By: LAFLAMSravan Metoprolol Succinate (Metoprolol Succinate Er 25 Mg Tab.Er.24h) 25 mg PO DAILY [facility]; Protocol Last Admin: 09/04/24 07:37 Dose: 25 mg Documented By: LUAN Nitroglycerin (Nitroglycerin 0.4 Mg Tab.Subl) 0.4 mg SUBLINGUAL Q5M PRN PRN Reason: Chest Pain Ondansetron HCl (Ondansetron Hcl 4 Mg/2 Ml Vial) 4 mg IVPUSH Q8H PRN PRN Reason: Nausea and Vomiting Sodium Chloride (0.9 % Sodium Chloride Flush 3 Ml Syringe) 3 ml IVFLUSH QSHIFT [facility] Last Admin: 09/04/24 06:57 Dose: 3 ml Documented By: LUAN Labs 09/04/24 05:37 09/04/24 05:37 Labs: Laboratory Results - last 24 hr 09/03/24 09/03/24 09/03/24 12:13 16:13 20:38 MCV MCH MCHC RDW Plt Count MPV Immature Gran % (Auto) Neut % (Auto) Lymph % (Auto) [place] % (Auto) Eos % (Auto) Baso % (Auto) Lymph # (Auto) [place] # (Auto) Eos # (Auto) Baso # (Auto) Abs Immat Gran (auto) Absolute Neuts (auto) Absolute Nucleated RBC Nucleated RBC % (auto) Absolute Retic Percent Retic Immature Retic Fraction Retic Hgb Equivalent Anion Gap Estim Creat Clear Calc Estimated GFR POC Glucose 132 H 284 H 150 H Random Glucose Calcium Iron TIBC % Saturation Unsat Iron Binding Ferritin Lactate Dehydrogenase 09/04/24 09/04/24 05:37 07:31 MCV 87.0 MCH 28.0 MCHC 32.2 RDW 14.2 Plt Count 299 MPV 9.2 L Immature Gran % (Auto) 0.9 H Neut % (Auto) 55.3 Lymph % (Auto) 28.9 [place] % (Auto) 8.4 Eos % (Auto) 5.7 H Baso % (Auto) 0.8 Lymph # (Auto) 2.8 [place] # (Auto) 0.8 Eos # (Auto) 0.6 H Baso # (Auto) 0.1 Abs Immat Gran (auto) 0.09 H Absolute Neuts (auto) 5.4 Absolute Nucleated RBC 0.000 Nucleated RBC % (auto) 0.0 Absolute Retic 0.096 H Percent Retic 2.9 H Immature Retic Fraction 18.8 H Retic Hgb Equivalent 30.2 Anion Gap 12 Estim Creat Clear Calc 54.5 Estimated GFR > 60 POC Glucose 164 H Random Glucose 164 H Calcium 8.4 Iron 39 TIBC 208 L % Saturation 19 Unsat Iron Binding 169 Ferritin 74 Lactate Dehydrogenase 209 TTE 09/04/24: - The visually estimated ejection fraction is between 65-70%. - There is moderate aortic valve stenosis. - There is moderate mitral annular calcification. Microbiology Microbiology Results: Microbiology 09/02/24 19:59 Blood Culture - Preliminary Blood - Venous No growth after 24 hours. 09/02/24 19:59 Blood Culture - Preliminary Blood - Venous No growth after 24 hours. Assessment and Plan (1) Cellulitis: Status: Resolved Assessment and Plan: d3 for 84yo F with dementia, hypothyroidism, HTN, DM2, and HLD; recent admission 08/22-08/27/24 for UTI, diverticulitis, and cellulitis and discharged home after refusing STR plcaement presents with worsening redness of legs after completing course of levofloxacin admitted for cellulitis bilateral leg cellulitis, R>L - follow BCx [negative thus far], had rash with ceftriaxone last admission, discharged on levofloxacin, got 1 dose doxycycline here, changed to linezolid for better Gram-positive coverage 09/03- and seems to be improving encephalopathy due to infection - resolved question of pulmonary edema on CXR moderate aortic stenosis - BNP normal, no hx CHF; was given 20 mg of IV furosemide in ED; TTE as above; should consult Cardiology as outpt for surveillance of aortic stenosis normocytic anemia - chronic, stable; check B12 + folate + occult blood stool hypothyroidism - continue LT4 HTN - continue losartan + metoprolol succinate HLD - continue statin DM2 - hold MTF + GPZ, give correction-dose lispro VTE prophylaxis - enoxaparin dispo - PT consulted: plan home with VNA In my clinical judgment, the patient requires continued inpatient hospitalization for the following reasons: IV ABX Quality Stroke Does the patient have a stroke diagnosis?: No VTE Prior VTE?: No VTE Risk Level:: Medical - moderate - high VTE Device Contraindication: Treatment Not Indicated VTE Drug Contraindication: N/A - Med Ordered
[2024-09-04 11:57] LABS: Glucose, Whole Blood 264 mg/dL (60-115)
[2024-09-04 15:24] VITALS: BP 156/69; PULSE 63; RESP 16; TEMP 36.1; O2SAT 100
[2024-09-04 16:19] LABS: Glucose, Whole Blood 109 mg/dL (60-115)
[2024-09-04 19:09] VITALS: BP 136/75; PULSE 75; RESP 17; TEMP 36; O2SAT 99
[2024-09-04 20:23] LABS: Glucose, Whole Blood 183 mg/dL (60-115)
[2024-09-04] MEDS: Enoxaparin Sodium 40 MG/0.4 ML SYRINGE SUBCUT (22:15)
[2024-09-05 02:04] VITALS: BP 158/65; PULSE 73; RESP 17; TEMP 36.1; O2SAT 97
[2024-09-05] MEDS: Acetaminophen 325 MG TABLET 975 MG PO (02:11)
[2024-09-05 05:44] LABS: MANUAL DIFF FLAG NO
[2024-09-05] MEDS: Levothyroxine Sodium 75 MCG TABLET PO (05:48)
[2024-09-05 05:52] LABS: Basophils Absolute Auto 0.1 X10*3/uL (0.0-0.2); Eosinophils Absolute Auto 0.5 X10*3/uL (0.0-0.4); Eosinophils Percent Auto 5.6 % (0-4); Hematocrit 29.9 % (37.0-47.0); Hemoglobin 9.6 g/dl (12.0-16.0); Imm Gran Abs Auto 0.08 X10*3/uL (0.00-0.03); Imm Gran Pct Auto 0.9 % (0.0-0.4); Lymphocytes Absolute Auto 2.8 X10*3/uL (1.2-4.9); Lymphocytes Percent Auto 30.3 % (20-40); Mean Corpuscular HGB Conc 32.1 g/dl (31.0-35.0); Mean Corpuscular Hemoglobin 27.8 pg (27.0-33.0); Mean Corpuscular Volume 86.7 fL (80.0-98.0); Monocytes Absolute Auto 0.9 X10*3/uL (0.1-1.2); Monocytes Percent Auto 9.2 % (2-11); Platelet Count 304 X10*3/uL (160-400); Red Blood Count 3.45 X10*6/uL (4.20-5.50); Red Cell Distribution Width 14.2 % (11.0-16.0); White Blood Count 9.3 X10*3/uL (4.8-10.8)
[2024-09-05 06:04] LABS: Anion Gap 12 (12-20); Blood Urea Nitrogen 12 mg/dL (9-16); C Reactive Protein 0.57 mg/dL (< or = 0.50); Calcium 8.4 mg/dL (8.4-10.2); Carbon Dioxide 24 mmol/L (22-29); Chloride 107 mmol/L (96-108); Creatinine Clr Calc Pharmacy 55.8; Estimated Glomerular Filt Rate > 60; Glucose Random 169 mg/dL (60-115); Sodium 139 mmol/L (135-145)
[2024-09-05 06:38] LABS: Folate 5.4 ng/mL (> or = 4.0); Vitamin B12 454 pg/mL (200-900)
[2024-09-05] MEDS: 0.9 % Sodium Chloride Flush 3 ML SYRINGE IVFLUSH (07:06)
[2024-09-05 07:43] LABS: Glucose, Whole Blood 167 mg/dL (60-115)
[2024-09-05 08:00] VITALS: BP 132/61; PULSE 60; RESP 16; TEMP 36.3; O2SAT 99
[2024-09-05 08:04] VITALS: BP 136/61; PULSE 60
[2024-09-05] MEDS: Metoprolol Succinate ER 25 MG TAB.ER.24H PO (08:04)
[2024-09-05 08:05] VITALS: BP 136/61
[2024-09-05] MEDS: Aspirin Enteric Coated 81 MG TABLET.DR PO (08:05)
[2024-09-05] MEDS: Losartan Potassium 50 MG TABLET 100 MG PO (08:05)
[2024-09-05] MEDS: Insulin Lispro 100 UNIT/ML 3 ML VIAL SUBCUT ×2 (08:05→11:35)
[2024-09-05] MEDS: Atorvastatin Calcium 10 MG TABLET PO (08:05)
--- NOTE | 2024-09-05 09:54 | P.DS_ITS ---
DS: Providers Provider Date of Service: 09/05/24 Date of admission: 09/02/24 22:14 Date of discharge: 09/05/24 Primary care physician: Ian Trimble MD Consults: 09/03/24 16:08 Consult to Wound Care Routine Reason for consultation: right lower extremity Has provider been notified: No DS: Diagnosis Discharge Diagnosis (1) Cellulitis: Status: Resolved DS: Summary Hospital Course Hospital Course: from initial hpi: 84-year-old female with a past medical history significant for dementia, hypothyroid, HTN, oxj-nehjjgs-vxizmenuz diabetes, mixed hyperlipidemia, pres ented to the ED due to worsening bilateral lower extremity cellulitis and edema. The patient was recently admitted from 08/22/24-08/27/24 for UTI/diverticulitis/cellulitis and suggested d/c to nursing facility but pt reports that she went home and lives alone. she reported to triage that she ran out of her medications today and has not taken them and does not know her medical history or medications. she states that the erythema and edema in her lower extremities has been worsening over the past few days and has been traveling up to the knee. she continues to complain of low back pain related to the stretcher, and was transferred to the patient chair while in the ED. She is unable to give me a history as she is too distracted by others in the ED and her back pain as well as she is encephalopathic. She denied SOB, fever, chills, or chest pain. Hospital course: Patient was admitted for bilateral lower extremity acute on chronic venous stasis with stasis dermatitis and superimposed cellulitis Complicated by acute metabolic encephalopathy. Was treated with Zyvox. had some improvement in erythema, swelling, encephalopathy. Cultures negative. Started on topical steroids and Ramsey wraps. Echo with moderate aortic stenosis, no significant volume overload. For hypothyroidism was continue levothyroxine. For hypertension was continue losartan and metoprolol. For hyperlipidemia continue statin. For diabetes insulin sliding scale. For obesity weight loss recommended. Patient is feeling better will be discharged home with VNA. we will continue 5 more days of doxycycline. Time Attestation Discharge Coordination Time (in mins): 33 Quality: Safe Use of Opioids Does Pt have an Active Cancer Diagnosis on the Problem List?: No Quality: Stroke Does the patient have a stroke diagnosis?: No Physical Exam Vital Signs: Vital Signs: Last Vital Signs Temp 97.3 F 09/05/24 08:00 Pulse 60 09/05/24 08:04 Resp 16 09/05/24 08:00 BP 136/61 09/05/24 08:05 Pulse Ox 99 09/05/24 08:00 O2 Del Method Room Air 09/05/24 08:00 BMI result Body Mass Index 34.1 General: AO X 3, no acute distress Resp: CTA bilateral, no accessory muscles used CVS: S1,S2,RRR GI: soft, non tender, non distended Neuro: motor grossly intact, alert Psych: appropriate affect, appropriate insight bilateral lower extremity ertyhema, edema DS: Data Data Completed and Pending Labs on day of discharge: Laboratory Results - last 24 hr 09/04/24 09/04/24 09/04/24 11:46 16:15 20:19 WBC RBC Hgb Hct MCV MCH MCHC RDW Plt Count MPV Immature Gran % (Auto) Neut % (Auto) Lymph % (Auto) [place] % (Auto) Eos % (Auto) Baso % (Auto) Lymph # (Auto) [place] # (Auto) Eos # (Auto) Baso # (Auto) Abs Immat Gran (auto) Absolute Neuts (auto) Absolute Nucleated RBC Nucleated RBC % (auto) Sodium Potassium Chloride Carbon Dioxide Anion Gap BUN Creatinine Estim Creat Clear Calc Estimated GFR POC Glucose 264 H 109 183 H Random Glucose Calcium C-Reactive Protein Vitamin B12 Folate 09/05/24 09/05/24 05:20 07:37 WBC 9.3 RBC 3.45 L Hgb 9.6 L Hct 29.9 L MCV 86.7 MCH 27.8 MCHC 32.1 RDW 14.2 Plt Count 304 MPV 9.0 L Immature Gran % (Auto) 0.9 H Neut % (Auto) 53.0 Lymph % (Auto) 30.3 [place] % (Auto) 9.2 Eos % (Auto) 5.6 H Baso % (Auto) 1.0 Lymph # (Auto) 2.8 [place] # (Auto) 0.9 Eos # (Auto) 0.5 H Baso # (Auto) 0.1 Abs Immat Gran (auto) 0.08 H Absolute Neuts (auto) 5.0 Absolute Nucleated RBC 0.000 Nucleated RBC % (auto) 0.0 Sodium 139 Potassium 4.0 Chloride 107 Carbon Dioxide 24 Anion Gap 12 BUN 12 Creatinine 0.83 Estim Creat Clear Calc 55.8 Estimated GFR > 60 POC Glucose 167 H Random Glucose 169 H Calcium 8.4 C-Reactive Protein 0.57 H Vitamin B12 454 Folate 5.4 Preliminary micro results at discharge 09/02/24 19:59 Blood Culture - Preliminary Blood - Venous No growth after 48 hours. 09/02/24 19:59 Blood Culture - Preliminary Blood - Venous No growth after 48 hours. Discharge Plan Discharge Anticipated Discharge Date/Time: 09/05/24 09:49 Patient Disposition: Home Health Service Discharge Diagnosis: stasis dermatitis, cellulitis Referrals: Ian Trimble MD [Primary Care Provider] - 1 Week Discharge Medications: New triamcinolone acetonide 0.1 % Cream 1 appl topical BID Qty: 30 0RF Protocol: Apply to: Apply to: legs doxycycline hyclate 100 mg tablet 100 mg PO BID Qty: 10 0RF Continued (DME) blood-glucose meter [FreeStyle Lite Meter] Kit See Rx Instructions .Route Qty: 1 0RF Rx Instructions: Test once daily aspirin 81 mg tablet,delayed release (DR/EC) 81 mg PO DAILY losartan 100 mg tablet 100 mg PO DAILY metformin 1,000 mg tablet 1,000 mg DAILY@0800 metoprolol succinate 25 mg tablet extended release 24 hr 25 mg PO DAILY levothyroxine 75 mcg Tablet 75 mcg PO DAILY@0600 glipizide 10 mg tablet 10 mg PO DAILY nitroglycerin 0.4 mg Tablet, Sublingual 0.4 mg SUBLINGUAL Q5M PRN (Reason: Chest Pain) Rx Instructions: do not exceed 3 doses per episode atorvastatin 10 mg tablet 10 mg PO DAILY Qty: 90 0RF (DME) FreeStyle Lite Strips Strip See Rx Instructions .Route Qty: 100 0RF Rx Instructions: Test once daily (DME) lancets [FreeStyle Lancets] 28 gauge misc See Rx Instructions .Route Qty: 100 0RF Rx Instructions: Test once daily Discharge Orders: Discharge Order (Routine); Ordered 09/05/24 Ordered By: Chun Moran Diet: Advance to usual diet Activity on Discharge: As tolerated Stand Alone Forms: Patient Portal Discharge page Print Language: Brazilian Care Plan Goals: recovery Health Concerns: venous stasis Plan of Treatment: keep legs elevated, steroid cream, wraps, 5 days doxy Assessment: see above
--- NOTE | 2024-09-05 09:54 | W.MHC.F2F ---
Service Date Service Date: 09/05/24 Encounter Date of encounter: 09/05/24 Reasons for Services Signs and symptoms assessed: difficulty ambulating Reason for nursing home: wound care (steroid cream and jeffrey wraps to bilateral legs), medication management and medication treatment Homebound: Leaving the home is medically contraindicated at this time without the asist of a device and/or another person due th the listed conditions above and below. Reason homebound: poor balance / fall risk Certification: Based on the above findings, I certify that this patient is confined to the home and needs intermittent nursing home care, physical therapy and/or speech therapy, or continues to need occupational therapy. The patient is under my care, and I have initiated the establishment of the plan of care. The patient will be followed by a physician who will periodically review the plan of care. Time Spent With Patient Time: Total time managing care of this patient today ____ minutes.
[2024-09-05] MEDS: Linezolid/D5W 600 MG/300 ML PIGGYBACK 300 MG IV (10:55)
--- NOTE | 2024-09-05 11:14 | MHC.CM.PN ---
IMM 09/03/24 Patient is discharged to home with resumption of [facility]. She will arrange for transportation home.
[2024-09-05] MEDS: Triamcinolone Acet 0.1 % Cream 15 GM TUBE 1 APPL TOPICAL (11:18)
[2024-09-05 11:30] LABS: Glucose, Whole Blood 244 mg/dL (60-115)
== END 2024-09-05 13:26 | disposition home health service (06) | DRG 602 ==
LOC: HO.ED 18:20 → HO.EDOVER 22:28 → HO.S3 09-03 15:21
PROVIDERS: Family Medicine; Internal Medicine; Admitting Provider Physician Assistant; Emergency Provider Internal Medicine; PCP Internal Medicine; Visit Provider Internal Medicine
DX: L03.116 Cellulitis of left lower limb (principal); G93.41 Metabolic encephalopathy; E87.20 Acidosis, unspecified; E03.9 Hypothyroidism, unspecified; L03.115 Cellulitis of right lower limb; F03.90 Unspecified dementia, unspecified severity, without behavioral disturbance, psychotic disturbance, mood disturbance, and anxiety; D64.9 Anemia, unspecified; E11.9 Type 2 diabetes mellitus without complications; I87.323 Chronic venous hypertension (idiopathic) with inflammation of bilateral lower extremity; I10 Essential (primary) hypertension; I35.0 Nonrheumatic aortic (valve) stenosis; E78.5 Hyperlipidemia, unspecified; E66.9 Obesity, unspecified; Z68.34 Body mass index [BMI] 34.0-34.9, adult; Z71.3 Dietary counseling and surveillance; M54.9 Dorsalgia, unspecified; G89.29 Other chronic pain; E78.2 Mixed hyperlipidemia; Z79.82 Long term (current) use of aspirin; Z79.84 Long term (current) use of oral hypoglycemic drugs; Z79.890 Hormone replacement therapy; Z79.899 Other long term (current) drug therapy
CPT/HCPCS: 36415; 71045; 80048; 80053; 82607; 82728; 82746; 82947; 83540; 83605; 83615; 83735; 83880; 84484; 85025; 85027; 85045; 86140; 87040; 93005; 93306; 97116; 97162; 99285; J1650; J1940; J2020; J2270; J3370; Q9957

== ENCOUNTER → 2024-09-02 18:19 | Outpatient (BNV) | payer MEDICARE, MEDICAID, SELFPAY | PROVIDERS: Emergency Provider Internal Medicine; PCP Internal Medicine; Visit Provider Student in an Organized Health Care Education/Training Program | DX: R60.0 Localized edema (principal); J84.9 Interstitial pulmonary disease, unspecified | CPT/HCPCS: 71045 ==

== ENCOUNTER → 2024-09-02 18:19 | Outpatient (BNV) | payer MEDICARE, MEDICAID, SELFPAY | PROVIDERS: Admitting Provider Physician Assistant; Emergency Provider Internal Medicine; PCP Internal Medicine; Visit Provider Internal Medicine | DX: R94.31 Abnormal electrocardiogram [ECG] [EKG] (principal) | CPT/HCPCS: 93010 ==

== ENCOUNTER 2024-09-02 22:14 | Outpatient (BNV) | payer MEDICARE, MEDICAID, SELFPAY | END 2024-09-04 07:00 | PROVIDERS: Admitting Provider Physician Assistant; Emergency Provider Internal Medicine; PCP Internal Medicine; Visit Provider Internal Medicine | DX: I35.0 Nonrheumatic aortic (valve) stenosis (principal); I35.8 Other nonrheumatic aortic valve disorders; I34.81 Nonrheumatic mitral (valve) annulus calcification; I34.0 Nonrheumatic mitral (valve) insufficiency | CPT/HCPCS: 93306 ==

== ENCOUNTER → 2024-09-02 22:14 | Outpatient (BNV) | payer MEDICARE, MEDICAID, SELFPAY | PROVIDERS: Admitting Provider Physician Assistant; Emergency Provider Internal Medicine; PCP Internal Medicine; Visit Provider Family Medicine | DX: L03.90 Cellulitis, unspecified (principal) | CPT/HCPCS: 99232; 99239; G0180 ==